=== PATIENT | female | born 1955 | race Caucasian/White ===

== ENCOUNTER 2022-03-01 12:00 | Outpatient (REF) | payer MEDICARE, OTHER, SELFPAY ==
[2022-03-01 13:33] LABS: Hematocrit 40.5 % (37.0-47.0); Hemoglobin 13.2 g/dl (12.0-16.0); Mean Corpuscular HGB Conc 32.6 g/dl (31.0-35.0); Mean Corpuscular Hemoglobin 29.7 pg (27.0-33.0); Mean Platelet Volume 9.1 fL (9.4-12.3); Platelet Count 400 X10*3/uL (160-400); Red Blood Count 4.45 X10*6/uL (4.20-5.50); Red Cell Distribution Width 12.8 % (11.0-16.0); White Blood Count 6.9 X10*3/uL (4.8-10.8)
[2022-03-01 13:54] LABS: Alanine Aminotransferase 22 U/L (0-31); Albumin Level 4.1 g/dL (3.5-5.0); Alkaline Phosphatase 106 U/L (39-117); Anion Gap 10 (12-20); Aspartate Amino Transferase 17 U/L (5-31); Bilirubin Total 0.5 mg/dL (0.0-1.0); Blood Urea Nitrogen 23 mg/dL (9-16); Calcium 9.8 mg/dL (8.4-10.2); Carbon Dioxide 28 mmol/L (22-29); Chloride 107 mmol/L (96-108); Cholesterol 233 mg/dL; Estimated Glomerular Filt Rate 42; Glucose Fasting 101 mg/dL (60-99); HDL Cholesterol 39 mg/dL; LDL Cholesterol Calculated 171 mg/dl; Potassium 4.9 mmol/L (3.3-5.1); Sodium 140 mmol/L (135-145); Total Protein 7.3 g/dL (6.5-8.0); Triglycerides 115 mg/dL
[2022-03-01 14:17] LABS: TSH reflex Free T4 0.57 uIU/mL (0.32-4.0)
== END 2022-03-01 12:01 | disposition home or self-care (01) ==
LOC: HO.WFDLDS 12:00
PROVIDERS: Visit Provider Hospitalist
DX: Z00.00 Encounter for general adult medical examination without abnormal findings (principal); R73.02 Impaired glucose tolerance (oral)
CPT/HCPCS: 36415; 80053; 80061; 84443; 85027

== ENCOUNTER 2022-07-03 12:41 | Outpatient (REF) | payer MEDICARE, OTHER, SELFPAY ==
[2022-07-04 13:32] LABS: Influenza A PCR NEGATIVE (Negative); Influenza B PCR NEGATIVE (Negative); Resp Syncy Virus RNA Qual PCR NEGATIVE (Negative); SARS COV2 PCR INHOUSE NEGATIVE (Negative)
== END 2022-07-03 12:42 | disposition home or self-care (01) ==
LOC: HO.LNP 12:41
PROVIDERS: Visit Provider Nurse Practitioner Family
DX: Z20.822 Contact with and (suspected) exposure to COVID-19 (principal); J06.9 Acute upper respiratory infection, unspecified
CPT/HCPCS: 0241U

== ENCOUNTER 2024-01-23 12:25 | Outpatient (AMB) | payer OTHER, SELFPAY ==
--- NOTE | 2024-01-23 12:27 | A.OFFPC_ITS ---
Vital Signs 01/23/24 12:31 Height 5 ft 4 in Weight 176 lb BMI 30.2 BP 122/76 Blood Pressure Location Rt brachial Position Sitting Respiration 13 Pulse 119 H Pulse Source Pulse Oximeter Temp 99.1 F Temp Source Temporal Artery Scan Pulse Oximetry (%) 96 Oxygen Delivery Method Room Air Intake Visit Reasons: RONDA from Deborah Intake Note: Patient is here for transfer of care from to . Patient reports she is in a lot of pain and would like to discuss this with provider. 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 Accompanied by: Self / Same As Patient Allergies aloe Allergy (Severe, Verified 01/23/24 12:34) Itching pentazocine [From Sandra] Allergy (Intermediate, Verified 01/23/24 12:34) itchy Medication List - Last Reconciled 01/23/24 by Divya Archer, [facility]- amlodipine 10 mg PO DAILY atorvastatin 20 mg PO BEDTIME 30 days levetiracetam 1,000 mg PO BID omeprazole 40 mg PO DAILY Tobacco use date assessed: 01/23/24 Fall risk assessment: 1 Fall in past year Last assessed Fall Risk: 01/23/24 Dental Screening Dental Screen Date: 01/23/24 Did you have a dental visit in the last 12 months?: Yes Did you have a dental problem in the last 6 months where you did not have access to dental care?: No Was dental information given to patient?: Patient has dentist HPI HPI Comments History of Present Illness Details 68-year-old female orthostatic hypotensi on, hyperlipidemia, obesity, GERD, seizure disorder, CKD 3, breast cancer (2013) Status post knee surgery, bilat breast reconstruction & mastectomy, back surgery, bunionectomy, cholecystectomy Health maintenance Tdap 12/13/2022 Mammo - declines DEXA - declines COLON - declines. Eyes - reports exam in the last year Specialist Cardiology - no longer following with. avoid ACEs caused a chronic cough in the past, also avoid beta blockers given low voltage EKG Here today to est care. CC: Pain 30 years ago, L hip pain. Been to many d octors. Pariformis release, no relief. Then had L4-L5 fusion, this helped for a while Then it came back Went to Pain mgmt for 15-20 years. 2020 migraine headaches, several per wee k. Nothing helped it. So she stopped taking all medications (oxycodone, oxycontin and topamax). After coming off, her headaches cont. Reports stopping 06/2020. Had a sz for the first time 09/2020. This was in [place] while visiting family. States she was recommended for medical marijuana. Has tried and has helped very little. Not managed by Neuro at this time; No Sz since this initial one. has never had a sleep study; declines having one done. Feels tired all of the time. States she would not use a device even if she had sleep apnea. Breast cancer - reports she is clear, no need for f/u. I do not have these records. 10 year anniversary this year FOR[facility] Medical History No pertinent past medical history Surgical History History of knee surgery History of reconstruction of both breasts History of mastectomy History of back surgery History of bunionectomy History of cholecystectomy Family History Other Mental health disorder Substance use disorder Social History (Updated 01/23/24 @ 12:39 by Pippa Mooney CMA) Household Members: Children Housing: House 75 years or older and lives alone: No Alcohol intake: current Alcohol intake frequency: holidays/special occasions only Patient Tobacco Use Status: Never used Tobacco e-Cigarette/Vaping Use: Never Used Second Hand Smoke Exposure: No Substance Use Type: Marijuana service: No Current occupational status: disabled Current occupational exposures/hazards: No Sexual orientation: Unable to collect Gender identity: Unable to collect Cognitive needs: No Hearing needs: No Vision needs: Yes (glasses) Questionnaire PHQ-9 Over the last 2 weeks, how often have you been bothered by any of the following problems? 1. Little interest or pleasure in doing things: not at all 2. Feeling down, depressed, or hopeless: not at all 3. Trouble falling or staying asleep, or sleeping too much: nearly every day 4. Feeling tired or having little energy: nearly every day 5. Poor appetite or overeating: not at all 6. Feeling bad about yourself - or that you are a failure or have let yourself or your family down: not at all 7. Trouble concentrating on things, such as reading the newspaper or watching television: several days 8. Moving or speaking so slowly that other people could have noticed. Or the opposite - being so fidgety or restless that you have been moving around a lot more than usual: not at all 9. Thoughts that you would be better off or of hurting yourself in some way: not at all Total score: 7 Depression Screening Interpretation: Positive Depression Screening Follow-up: Declines treatment Depression Screening Done: Yes 22526 - PHQ-9 Billing: Yes Source: Developed by Drs. Manny Vargas, Erika Cook, Morro Shipley and colleagues, with an educational rose from [employer]. Thrive Questionnaire Date Thrive assessed: 01/23/24 I am a: Patient What is your living situation today?: I have a steady place to live Within the past 12 months, did the food you bought not last and you didn't have the money to get more?: Never true Within the past 12 months, did you worry whether your food would run out before you got money to buy more?: Never true Do you have trouble paying for medicines?: No Do you have trouble getting transportation to medical appointments?: No Do you have trouble paying your heating and electricity bill?: No Do you have trouble taking care of your child, family member or friend?: No Do you have trouble with day-to-day activities such as bathing, preparing meals, shopping, managing finances, etc.?: No Are you currently unemployed and looking for a job?: No Are you interested in more education?: No Please select the resources that you would like help with: None Currently or been in a relationship where the following occur: no concerns reported THRIVE Score: 0 AUDIT C Alcohol Use Questionnaire (AUDIT-C) 1. How often do you have a drink containing alcohol?: Monthly or less 2. How many drinks containing alcohol do you have on a typical day when you are drinking?: 1 or 2 3. How often do you have six or more drinks on one occasion?: Never Total Score: 1 SCOTT-7 AMB Questionnaire SCOTT-7 Date SCOTT - 7 assessed: 01/23/24 Feeling nervous, anxious, or on edge: 0 = Not at all Not being able to stop or control worryin = Not at all Worrying too much about different things: 0 = Not at all Trouble relaxin = More than half the days Being so restless that it is hard to sit still: 0 = Not at all Becoming easily annoyed or irritable: 0 = Not at all Feeling afraid as if something awful might happen: 0 = Not at all Total SCOTT-7 score (0-4 normal; 5-9 mild; 10-14 moderate; 15-21 severe): 2 Source: Developed by Drs. Manny Vargas, Erika Cook, Morro Shipley and colleagues, with an educational rose from [employer]. SCOTT-7 Assessment Billing SCOTT-7 Assessment Tool: SCOTT-7 Assessment 03220 Review of Systems Const All systems reviewed & are unremarkable except as noted in HPI and below Physical exam (Primary Care) Vital Signs: Last Vital Signs Temp 99.1 F 01/23/24 12:31 Pulse 119 H 01/23/24 12:31 Resp 13 01/23/24 12:31 BP 122/76 01/23/24 12:31 Pulse Ox 96 01/23/24 12:31 Oxygen Delivery Method Room Air 01/23/24 12:31 BMI result Body Mass Index 30.2 Tobacco/Smoking Status: Tobacco use Status Tobacco use date assessed 01/23/24 01/23/24 12:41 Patient Tobacco Use Status Never used Tobacco 01/23/24 12:41 e-Cigarette/Vaping Use Never Used 01/23/24 12:41 PHQ-9: PHQ-9 Score PHQ-9: Total score 7 01/23/24 12:41 Depression Screening Interpretation: Positive Depression Screening Follow-up: Declines treatment Thrive Assessment: Date of Thrive Assessment Date Thrive assessed 01/23/24 01/23/24 12:41 Currently or been in a relationship where the following occur: no concerns reported Advance Care Planning discussion: Exists, not on file (has a signed dnr molst at home; blank hcp given today.) Date of discussion: 01/23/24 Who was present: self Forms completed: Health Care Proxy Time spent: 1-15 minutes, not on file Const Other: awake alert oriented MMM Tachycardic, regular rythym LS CTAB NO edema BLE Neuro exam WNL Assessment and Plan Assessment & Plan (1) Chronic pain: Comment: Affecting bilat hips and legs. Was active with pain management in [place] in the past. Was prescribed oxycodone and OxyContin. She has been off these since 2020. She underwent spinal surgery for L4-L5 several years ago with short-lived relief. The plan at this time will be to refer to [facility] is pain management for further evaluation and treatment. Aware they do not prescribe medications. Code(s): G89.29 - Other chronic pain Qualifiers: Chronic pain type: other chronic pain Qualified Code(s): G89.29 - Other chronic pain (2) HTN (hypertension): Comment: Blood pressure at goal less than 130/80 on amlodipine 10 mg p.o. daily. avoid ACEs caused a chronic cough in the past, also avoid beta blockers given low voltage EKG noted at [facility] during hospital admission. She is tachycardic today. She denies any symptoms. Admits some anxiety with a new visit. Advised her to monitor her blood pressure and pulse daily. If pulse remains above 100 and or she develops symptoms advised that she follow up immediately. Otherwise I have asked that she send me her blood pressure and pulse log in 1 week via the portal. Code(s): I10 - Essential (primary) hypertension Qualifiers: Hypertension type: primary hypertension Qualified Code(s): I10 - Essential (primary) hypertension (3) Seizure disorder: Comment: One seizure in 2020 after stopping narcotics. Maintained on Keppra. Not currently managed by Neurology. No interest in following up with Neurology at this time. If she is willing in the future I would recommend a referral to Neurology to see if we can get her off of this Keppra or to see if she really needs this medication. Code(s): G40.909 - Epilepsy, unspecified, not intractable, without status epilepticus (4) Chronic GERD: Comment: Maintained on omeprazole. Code(s): K21.9 - Gastro-esophageal reflux disease without esophagitis (5) High cholesterol: Comment: Maintained on atorvastatin 20 mg daily. Updated lab orders placed today. Code(s): E78.00 - Pure hypercholesterolemia, unspecified (6) Migraine aura without headache: Comment: Using Excedrin migraine with positive relief. Declines referral to neurology, any abortive medications and sleep study at this time. Code(s): G43.109 - Migraine with aura, not intractable, without status migrainosus (7) Breast cancer: Comment: I do not have any records. Patient reports that this was diagnosed in 2013. She underwent a bilateral mastectomy. Reports that she was cleared from any additional follow up. Code(s): C50.919 - Malignant neoplasm of unspecified site of unspecified female breast Qualifiers: Breast location: unspecified site of breast Estrogen receptor status: unspecified Patient sex: female Laterality: unspecified laterality Qualified Code(s): C50.919 - Malignant neoplasm of unspecified site of unspecified female breast Plan This note is constructed using voice recognition software. While every effort has been made to ensure accuracy in manager people, still errors may have been included Sometimes, these errors may affect the content or meaning of the given sentence . Total time spent caring for the patient today was 50 minutes. This includes time spent before the visit reviewing the chart, time spent during the visit, and time spent after the visit on documentation Orders: Orders Lipid Panel Today E78.00 - Pure hypercholesterolemia, unspecified, G40.909 - Epilepsy, unspecified, not intractable, without status epilepticus, I10 - Essential (primary) hypertension, K21.9 - Gastro-esophageal reflux disease without esophagitis Comprehensive [place]. Panel Fast Today E78.00 - Pure hypercholesterolemia, unspecified, G40.909 - Epilepsy, unspecified, not intractable, without status epilepticus, I10 - Essential (primary) hypertension, K21.9 - Gastro-esophageal reflux disease without esophagitis TSH reflex Free T4 Today E78.00 - Pure hypercholesterolemia, unspecified, G40.909 - Epilepsy, unspecified, not intractable, without status epilepticus, I10 - Essential (primary) hypertension, K21.9 - Gastro-esophageal reflux disease without esophagitis Vitamin D 1,25 dihydroxy Today E78.00 - Pure hypercholesterolemia, unspecified, G40.909 - Epilepsy, unspecified, not intractable, without status epilepticus, I10 - Essential (primary) hypertension, K21.9 - Gastro-esophageal reflux disease without esophagitis IRON PROFILE Today G43.109 - Migraine with aura, not intractable, without sta tus migrainosus Complete Blood Count no Diff Today G43.109 - Migraine with aura, not intractable, without status migrainosus Microalbumin, Random (w Creat) Today E78.00 - Pure hypercholesterolemia, unspecified, G40.909 - Epilepsy, unspecified, not intractable, without status epilepticus, I10 - Essential (primary) hypertension, K21.9 - Gastro-esophageal reflux disease without esophagitis Vitamin B12 Today G43.109 - Migraine with aura, not intractable, without status migrainosus Referrals 2 Pain Management Referral G89.29 - Other chronic pain Medications: Discontinued amlodipine Discontinued Reason: Duplicate 5 mg PO DAILY Patient Instructions: Return to office in 2 months to follow-up on chronic conditions. Sooner if needed. Please send me blood pressure and pulse log in 1 week. Review Patient declined Mammogram: 01/23/24 Declined Pap Smear: 01/23/24 Patient declined Colonoscopy: 01/23/24 Patient declined Colon Cancer Screen Lab: 01/23/24 Patient declined Pneumococcal Vaccine: 01/23/24 Flu Vaccine not done: patient reason Declined TDap/Td: 01/23/24 Coding Level of Care Code Est Pt Level 5 (11282) Diagnoses Other chronic pain G89.29 Chronic pain type: other chronic pain Primary hypertension I10 Hypertension type: primary hypertension Seizure disorder G40.909 Chronic GERD K21.9 High cholesterol E78.00 Migraine aura without headache G43.109 Malignant neoplasm of female breast, unspecified estrogen receptor status, unspecified laterality, unspecified site of breast C50.919 Breast location: unspecified site of breast Estrogen receptor status: unspecified Patient sex: female Laterality: unspecified laterality Additional Codes SCOTT-7 Assessment Billing - SCOTT-7 Assessment Tool: SCOTT-7 Assessment 27893 ([id number]) Vital Signs *Quality* - Time spent: 1-15 minutes, not on file ([id number]) Vital Signs *Quality* - Advance Care Planning discussion: Exists, not on file ([id number])
[2024-01-23 12:31] VITALS: BP 122/76; PULSE 119; RESP 13; TEMP 37.3; O2SAT 96; BMI 30.2
== END 2024-01-23 13:14 | disposition home or self-care (01) ==
PROVIDERS: PCP Hospitalist; Visit Provider Nurse Practitioner Family
DX: G89.29 Other chronic pain (principal); I10 Essential (primary) hypertension; G40.909 Epilepsy, unspecified, not intractable, without status epilepticus; C50.919 Malignant neoplasm of unspecified site of unspecified female breast; K21.9 Gastro-esophageal reflux disease without esophagitis; E78.00 Pure hypercholesterolemia, unspecified; G43.109 Migraine with aura, not intractable, without status migrainosus; Z00.00 Encounter for general adult medical examination without abnormal findings
CPT/HCPCS: 1124F; 99215

== ENCOUNTER 2024-03-03 10:51 | Outpatient (AMB) | payer BC, SELFPAY ==
[2024-03-03 11:01] VITALS: BP 136/63; PULSE 99; RESP 14; O2SAT 98; BMI 29.9
--- NOTE | 2024-03-03 11:01 | MHC.OFFVIS ---
Vital Signs 03/03/24 11:01 Height 5 ft 4 in Weight 174 lb BMI 29.9 BP 136/63 Blood Pressure Location Lt brachial Position Sitting Respiration 14 Pulse 99 Pulse Source Pulse Oximeter Pulse Oximetry (%) 98 Oxygen Delivery Method Room Air Intake Visit Reasons: Other chronic pain Allergies aloe Allergy (Severe, Verified 03/03/24 11:02) Itching pentazocine [From Talwin] Allergy (Intermediate, Verified 03/03/24 11:02) itchy Medication List - Last Reconciled 03/03/24 by Dahlia Duron LPN amlodipine 10 mg PO DAILY atorvastatin 20 mg PO BEDTIME 30 days levetiracetam 1,000 mg PO BID omeprazole 40 mg PO DAILY HPI HPI Other chronic pain: Details: 68-year-old female who presents today to the office for a chronic pain. She is presenting with a more than 20-year history of pain in the left buttock as well as in the lower back radiating into the left thigh. She had a performance muscle released 20 years ago for left buttock pain, which never helped her, and she has continued with that pain ever since.?Subsequently, she also underwent L4-5 laminectomy fusion, which also did not really clear the relief. She has undergone multiple types of injections in the past at [facility] without any relief. Eventually, she was placed on pain medications, including oxycontin and oxycodone, that seemed to provide some relief. Since moving here, she has not been on those medications and has been managing her pain using [id number] modalities. Today, her pain is described as an 8/10 aching pain in the lower back that radiates to the left buttock. She is unable to go to sleep normally or do her daily activities. The pain is rated as 9/10 with activity in the morning; it tends to be a little bit better, about 2/10 in intensity. Movements make it worse. She was diagnosed with a seizure disorder two years ago, and she is currently on Keppra 1000 milligrams twice daily. Surgical history is also notable for bilateral mastectomy with reconstruction as well as left TKR. She does not recall when her last MRI was done, and she has not been for physical therapy in the recent past. Previously, PT made her pain worse. She recalls undergoing a SIJ injection at 1 point, though she was unsure what was done and when. She has not tried SIJ compression belts in the past. [facility] Medical History No pertinent past medical history Surgical History History of knee surgery History of reconstruction of both breasts History of mastectomy History of back surgery History of bunionectomy History of cholecystectomy Family History Other Mental health disorder Substance use disorder Social History (Updated 01/23/24 @ 12:39 by Pippa Mooney CMA) Household Members: Children Housing: House 75 years or older and lives alone: No Alcohol intake: current Alcohol intake frequency: holidays/special occasions only Patient Tobacco Use Status: Never used Tobacco e-Cigarette/Vaping Use: Never Used Second Hand Smoke Exposure: No Substance Use Type: Marijuana service: No Current occupational status: disabled Current occupational exposures/hazards: No Sexual orientation: Unable to collect Gender identity: Unable to collect Cognitive needs: No Hearing needs: No Vision needs: Yes (glasses) Review of Systems Const All systems reviewed & are unremarkable except as noted in HPI and below Physical Exam Vital Signs: Last Vital Signs Pulse 99 03/03/24 11:01 Resp 14 03/03/24 11:01 BP 136/63 03/03/24 11:01 Pulse Ox 98 03/03/24 11:01 Oxygen Delivery Method Room Air 03/03/24 11:01 BMI result Body Mass Index 29.9 General: Appears afebrile. Alert and oriented. Mood and affect appropriate. Follows and participates in conversation appropriately. Respiratory effort is unlabored. Able to transition from sit to stand unassisted. Ambulates with bilaterally normal heel strike and toe off. Her right SI joint provocation, including compression, thigh thrust, and kamaljit is positive. There is tenderness overlying the left side joint. Pain is localized in the left buttock area, overlying the SIJ up towards the lower back. Results Reviewed Results Reviewed: No imaging is available for review. 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 She did not get better with that operation and then subsequently underwent multiple trials with different treatments, none of which were successful. History is also notable for a lumbar fusion surgery. She was eventually placed on long-term opioid therapy. She has now been off of her opioids for 2 years. Based on history and physical exam today, at this time, differential diagnosis includes post-laminectomy syndrome, cluneal neuropathy, sacroiliac joint dysfunction and hip osteoarthritis due to gait instability following left piriformis muscle release. Start with, I will schedule her for a left-diagnostic sacroiliac joint injection. We will potentially follow this up with sacroiliac joint innervation block/cluneal nerve block to assess candidacy for cluneal nerve stimulator leads. Discussed the risks and benefits of the procedure with the patient in detail. All questions were answered. The patient is on board with the plan. In meantime I ordered xray of the bilateral hips and pelvis region for further evaluation. If that is not helpful, we can consider diagnostic nerve block of the posterior ramis of the S1, S2, and S3 in anticipation of PNS trials for medial cluneal neuropathy. Justification for interventional therapy: ? Patient with average pain > 6/10 ? Patient has exhausted conservative therapy ? Patient unable to tolerate physical therapy due to pain. . Patient has a good understanding of their pain condition and has appropriate mental and social support Orders: Orders XR hip BI w PEL1V 03/03/24 M25.551 - Pain in right hip, M25.552 - Pain in left hip Scribe Plan - Not visible on output: Scribed for Dr. Gorman by Danyel Moeller, medical delivery technician, on 03/03/2024. I, Dr. Gorman, have personally reviewed and agree with the information entered by the scribe. Coding Level of Care Code New Pt Level 4 (03573) Diagnoses Bilateral hip pain M25.551; M25.552 Cluneal neuropathy G58.8 Sacroiliac joint dysfunction M53.3 Post laminectomy syndrome M96.1
== END 2024-03-03 11:28 | disposition home or self-care (01) ==
PROVIDERS: PCP Nurse Practitioner Family; Referring Provider Nurse Practitioner Family; Visit Provider Internal Medicine
DX: M25.551 Pain in right hip (principal); M25.552 Pain in left hip; G58.8 Other specified mononeuropathies; M53.3 Sacrococcygeal disorders, not elsewhere classified; M96.1 Postlaminectomy syndrome, not elsewhere classified
CPT/HCPCS: 99204

== ENCOUNTER → 2024-03-03 10:51 | Outpatient (BNVA) | payer OTHER, SELFPAY | PROVIDERS: PCP Nurse Practitioner Family; Referring Provider Nurse Practitioner Family; Visit Provider Internal Medicine ==

== ENCOUNTER 2024-04-03 10:59 | Outpatient (REF) | payer BC, SELFPAY ==
[2024-04-03 15:05] LABS: Hematocrit 43.8 % (37.0-47.0); Hemoglobin 14.6 g/dl (12.0-16.0); Mean Corpuscular HGB Conc 33.3 g/dl (31.0-35.0); Mean Corpuscular Volume 89.9 fL (80.0-98.0); Mean Platelet Volume 9.4 fL (9.4-12.3); Platelet Count 391 X10*3/uL (160-400); Red Blood Count 4.87 X10*6/uL (4.20-5.50); Red Cell Distribution Width 12.9 % (11.0-16.0); White Blood Count 7.8 X10*3/uL (4.8-10.8)
[2024-04-03 15:33] LABS: Creatinine Urine 128.51 mg/dL
[2024-04-03 15:41] LABS: Alanine Aminotransferase 8 U/L (0-31); Albumin Level 3.8 g/dL (3.5-5.0); Alkaline Phosphatase 83 U/L (39-117); Anion Gap 13 (12-20); Aspartate Amino Transferase 16 U/L (5-31); Bilirubin Total 0.5 mg/dL (0.0-1.0); Blood Urea Nitrogen 13 mg/dL (9-16); Calcium 9.5 mg/dL (8.4-10.2); Carbon Dioxide 29 mmol/L (22-29); Chloride 106 mmol/L (96-108); Cholesterol 174 mg/dL (<200); Estimated Glomerular Filt Rate 54; Glucose Fasting 103 mg/dL (60-99); HDL Cholesterol 46 mg/dL (>40); Iron 86 mcg/dL (30-160); LDL Cholesterol Calculated 111 mg/dL (<100); Percent Iron Saturation 40 % (15-50); Potassium 3.1 mmol/L (3.3-5.1); Sodium 145 mmol/L (135-145); Total Iron Binding Capacity 214 mcg/dL (228-428); Total Protein 7.3 g/dL (6.5-8.0); Triglycerides 86 mg/dL (<150); Unsaturated Iron Binding 128 ug/dL
[2024-04-03 15:49] LABS: TSH reflex Free T4 0.81 uIU/mL (0.32-4.0); Vitamin B12 301 pg/mL (200-900)
[2024-04-08 03:13] LABS: VITAMIN D (1,25 OH) D3 56 pg/mL; Vit D (1,25-Dihydroxy) Total 56 pg/mL (18-72); Vitamin D (1,25 OH) D2 <8 pg/mL
== END 2024-04-03 11:00 | disposition home or self-care (01) ==
LOC: HO.WFDLDS 10:59
PROVIDERS: Visit Provider Nurse Practitioner Family
DX: K21.9 Gastro-esophageal reflux disease without esophagitis (principal); I10 Essential (primary) hypertension; G40.909 Epilepsy, unspecified, not intractable, without status epilepticus; E78.00 Pure hypercholesterolemia, unspecified; G43.109 Migraine with aura, not intractable, without status migrainosus; G43.909 Migraine, unspecified, not intractable, without status migrainosus
CPT/HCPCS: 36415; 80053; 80061; 82043; 82570; 82607; 82652; 83540; 84443; 85027

== ENCOUNTER 2024-04-10 06:11 | Outpatient (REF) | payer BC, SELFPAY ==
--- NOTE | ~2024-04-10 | FL_ITS ---
EXAMINATION: XR FLUOROSCOPY WITH IMAGES CLINICAL INFORMATION: Sacrococcygeal disorder. COMPARISON: None available. TECHNIQUE: Fluoroscopy Supervised By: Dr. Sincere Gorman. Fluoroscopy Time: 0.1 minutes. Cumulative Dose: 2.04 mGy. DAP: 0.201 Gycm2. Images: 2. FINDINGS: Intraoperative fluoroscopy and spot films were performed during a procedure in the OR. A needle is seen overlying the mid left SI joint. Partial visualization of lumbosacral fixation hardware. Please correlate with Dr. Sincere Gorman's report for complete details. FL/FL guidance in treatment room IMPRESSION: Intraoperative fluoroscopy and spot films were obtained. Please see Dr. Sincere Gorman's report for complete details.
== END 2024-04-10 06:12 | disposition home or self-care (01) ==
LOC: CF 06:11
PROVIDERS: Visit Provider Internal Medicine
DX: M53.3 Sacrococcygeal disorders, not elsewhere classified (principal)
CPT/HCPCS: 27096; J2795

== ENCOUNTER 2024-04-10 10:18 | Outpatient (AMB) | payer BC, SELFPAY ==
--- NOTE | 2024-04-10 10:45 | A.OFFVIS_ITS ---
Vital Signs 04/10/24 10:57 04/10/24 10:57 BP 128/85 124/84 Blood Pressure Location Lt brachial Lt brachial Position Sitting Sitting Respiration 14 14 Pulse 90 99 Pulse Source Pulse Oximeter Pulse Oximeter Pulse Oximetry (%) 98 100 Oxygen Delivery Method Room Air Room Air Intake Visit Reasons: Left Dx SIJ inj Allergies aloe Allergy (Severe, Verified 03/03/24 11:02) Itching pentazocine [From Talwin] Allergy (Intermediate, Verified 03/03/24 11:02) itchy HPI HPI Left Dx SIJ inj: Details: Patient presents for scheduled procedure. Denies any recent cough, cold, infection, fever or other significant changes in medical history since last office visit. FORMERLY [facility] Medical History No pertinent past medical history Surgical History History of knee surgery History of reconstruction of both breasts History of mastectomy History of back surgery History of bunionectomy History of cholecystectomy Family History Other Mental health disorder Substance use disorder Social History (Updated 01/23/24 @ 12:39 by Pippa Mooney CMA) Household Members: Children Housing: House 75 years or older and lives alone: No Alcohol intake: current Alcohol intake frequency: holidays/special occasions only Patient Tobacco Use Status: Never used Tobacco e-Cigarette/Vaping Use: Never Used Second Hand Smoke Exposure: No Substance Use Type: Marijuana service: No Current occupational status: disabled Current occupational exposures/hazards: No Sexual orientation: Unable to collect Gender identity: Unable to collect Cognitive needs: No Hearing needs: No Vision needs: Yes (glasses) Physical Exam Vital Signs: Last Vital Signs Pulse 99 04/10/24 10:57 Resp 14 04/10/24 10:57 BP 124/84 04/10/24 10:57 Pulse Ox 100 04/10/24 10:57 Oxygen Delivery Method Room Air 04/10/24 10:57 Office Procedures Joint Injection/Drain Joint Injection/Drain Details: Sacroiliac Joint Injection, Left The procedure, its benefits, and its risks were explained and written informed consent was obtained from the patient. Immediately prior to starting the procedure, a time-out safety check was conducted. The patient's identification, procedure name, procedure site, and procedure laterality were confirmed with the patient. ? Patient was placed prone on the fluoroscopy table and the lumbosacral area was prepped using ChloraPrep and draped with sterile drapein standard fashion. The C-arm was rotated in a contralateral oblique fashion until the medial border of the iliac crest no longer foreshadowed the posterior sacroiliac joint line. The skin and subcutaneous tissue was anesthetized using 1 mL of 0.75% plain lidocaine with 1.5-inch 25-gauge needle in the middle region of the joint line.? A 3.5-inch 22-gauge spinal needle with small bend on the tip was slowly advanced towards the joint line, coaxial to the x-ray beam. Once bony content was obtained, the needle was easily slid into the intra-articular space.? Intra- articular needle position was confirmed using lateral fluoroscopy.? A total volume of 2.5mL of solution containing 0.5% of ropivacaine was injected intra- articularly. The stylet was reinserted and needle was removed. The patient tolerated the procedure well. Patient denied any lower extremity weakness or numbness. Patient was observed for 30 min and was discharged after fulfilling the standard discharge criteria. Coding 26843 - Sacroiliac Procedure code (CPT) selection complete Assessment & Plan Assessment & Plan (1) Sacroiliac joint dysfunction: Code(s): M53.3 - Sacrococcygeal disorders, not elsewhere classified Category: Medical Plan Patient is status post diagnostic left sacroiliac joint injection. Patient tolerated procedure well and was discharged home in stable condition with discharge instructions. All questions were answered. We will follow-up via telephone or in clinic to assess response to therapy. A follow-up appointment was made during today's visit. Coding Level of Care Code Procedure Only Diagnoses Sacroiliac joint dysfunction M53.3 CPT Codes Coding - Joint 9: 29929 - Sacroiliac ([id number])
[2024-04-10 10:57] VITALS: BP 124/84; BP 128/85; PULSE 90; PULSE 99; RESP 14; O2SAT 100; O2SAT 98
== END 2024-04-10 11:05 | disposition home or self-care (01) ==
LOC: HO.PMCPRC 10:18
PROVIDERS: PCP Nurse Practitioner Family; Visit Provider Internal Medicine
DX: M53.3 Sacrococcygeal disorders, not elsewhere classified (principal)
CPT/HCPCS: 27096

== ENCOUNTER 2024-04-16 10:21 | Outpatient (AMB) | payer BC, SELFPAY ==
--- NOTE | 2024-04-16 10:38 | A.OFFVIS_ITS ---
Vital Signs 04/16/24 10:39 Height 5 ft 4 in Weight 174 lb BMI 29.9 BP 119/65 Blood Pressure Location Lt brachial Position Sitting Respiration 14 Pulse 95 Pulse Source Pulse Oximeter Pulse Oximetry (%) 98 Oxygen Delivery Method Room Air Intake Visit Reasons: s/p left Dx SIJ inj Allergies aloe Allergy (Severe, Verified 04/16/24 10:40) Itching pentazocine [From Talwin] Allergy (Intermediate, Verified 04/16/24 10:40) itchy Medication List - Last Reconciled 04/16/24 by Dahlia Duron LPN amlodipine 10 mg PO DAILY atorvastatin 20 mg PO BEDTIME 30 days levetiracetam 1,000 mg PO BID omeprazole 40 mg PO DAILY HPI HPI s/p left Dx SIJ inj: Details: 68-year-old female who presents to the office for status post left diagnostic sacroiliac joint injection The patient reports 70% relief following the procedure. Past procedure: 04/10/24: Left diagnostic sacroiliac joint injection: 70% relief PFS Medical History No pertinent past medical history Surgical History History of knee surgery History of reconstruction of both breasts History of mastectomy History of back surgery History of bunionectomy History of cholecystectomy Family History Other Mental health disorder Substance use disorder Social History (Updated 01/23/24 @ 12:39 by Pippa Mooney CMA) Household Members: Children Housing: House 75 years or older and lives alone: No Alcohol intake: current Alcohol intake frequency: holidays/special occasions only Patient Tobacco Use Status: Never used Tobacco e-Cigarette/Vaping Use: Never Used Second Hand Smoke Exposure: No Substance Use Type: Marijuana service: No Current occupational status: disabled Current occupational exposures/hazards: No Sexual orientation: Unable to collect Gender identity: Unable to collect Cognitive needs: No Hearing needs: No Vision needs: Yes (glasses) Review of Systems Const All systems reviewed & are unremarkable except as noted in HPI and below Physical Exam Vital Signs: Last Vital Signs Pulse 95 04/16/24 10:39 Resp 14 04/16/24 10:39 BP 119/65 04/16/24 10:39 Pulse Ox 98 04/16/24 10:39 Oxygen Delivery Method Room Air 04/16/24 10:39 BMI result Body Mass Index 29.9 General: Appears afebrile. Alert and oriented. Mood and affect appropriate. Follows and participates in conversation appropriately. Respiratory effort is unlabored. Able to transition from sit to stand unassisted. Results Reviewed Results Reviewed: No imaging is available for review Assessment & Plan Assessment & Plan (1) Sacroiliac joint dysfunction: Code(s): M53.3 - Sacrococcygeal disorders, not elsewhere classified Category: Medical Plan We will schedule for a left therapeutic sacroiliac joint injection under flouroscopy. Discussed the risks and benefits of the procedure with the patient in detail. All questions were answered. The patient is on board with the plan. Scribed for Dr. Gorman by Kristan German, medical information officer, on 04/16/2024. I, Dr. Gorman, have personally reviewed and agree with the information entered by the scribe. Coding Level of Care Code Est Pt Level 2 (00907) Diagnoses Sacroiliac joint dysfunction M53.3
[2024-04-16 10:39] VITALS: BP 119/65; PULSE 95; RESP 14; O2SAT 98; BMI 29.9
== END 2024-04-16 11:00 | disposition home or self-care (01) ==
PROVIDERS: PCP Nurse Practitioner Family; Visit Provider Internal Medicine
DX: M53.3 Sacrococcygeal disorders, not elsewhere classified (principal)
CPT/HCPCS: 99214

== ENCOUNTER → 2024-04-16 10:21 | Outpatient (BNVA) | payer BC, SELFPAY | PROVIDERS: PCP Nurse Practitioner Family; Visit Provider Internal Medicine ==

== ENCOUNTER 2024-10-13 10:26 | Outpatient (AMB) | payer BC, SELFPAY ==
--- OUTSIDE RECORDS SUMMARY | 2024-10-13 10:31 | XMS_ITS ---
Author Name [facility] Organization Unknown Results Test Name/Text Value Interpretation Date Range Source Trigl SerPl-mCnc 178mg/dL Above high normal [id number] - 150 [facility] HDLc SerPl-mCnc 45mg/dL Normal [id number] 40 - 60 [facility] LDLc SerPl Direct Assay-mCnc 92mg/dL Normal [id number] 65 - 129 [facility] Cholest SerPl-mCnc 173mg/dL Normal [id number] - 200 [facility] NonHDLc SerPl-mCnc 128mg/dL Normal [id number] [facility] AST SerPl-cCnc 22U/L Normal [id number] 15 - 37 [facility] Creat SerPl-mCnc 1.34mg/dL Above high normal [id number] 0. 51 - 0.95 [facility] Globulin Ser Calc-mCnc 4.2g/dL Above high normal [id number] 1.9 - 3.7 [facility] H CO2 SerPl-sCnc 30mmol/L Normal [id number] 21 - 32 [facility] eGFRcr SerPlBld CKD-EPI 2020 43mL/min/1.73 m2 Below low normal [id number] - [facility] Potassium SerPl-sCnc 3.5mmol/L Normal [id number] 3.5 - 5.1 [facility] Bilirub SerPl-mCnc 0.35mg/dL Normal [id number] 0.2 - 1 [facility] Calcium SerPl-mCnc 8.7mg/dL Normal [id number] 8.5 - 10.1 [facility] BUN SerPl-mCnc 19mg/dL Above high normal [id number] 7 - 18 [facility] ALP SerPl-cCnc 91U/L Normal [id number] 42 - 161 [facility] Chloride SerPl-sCnc 105mmol/L Normal [id number] 98 - 107 [facility] Albumin SerPl-mCnc 3.5g/dL Normal [id number] 3.4 - 5 [facility] Prot SerPl-mCnc 7.7g/dL Normal [id number] 6.4 - 8.2 [facility] ALT SerPl w P-5'-P-cCnc 22U/L Normal [id number] 13 - 61 [facility] Sodium SerPl-sCnc 140mmol/L Normal [id number] 136 - 145 [facility] Anion Gap SerPl-sCnc 5mmol/L Normal [id number] 5 - 14 [facility] Glucose SerPl-mCnc 107mg/dL Above high normal [id number] 70 - 100 [facility] H RDW RBC Auto-Rto 12.6% Below low normal [id number] 13 - 18.5 [facility] PMV Bld Auto 7.3fL Below low normal [id number] 8.7 - 1 1.8 [facility] MCH RBC Qn Auto 30.8pg Normal [id number] 25.4 - 34.6 [facility] RBC # Bld Auto 4.4x10E6/uL Normal [id number] 3.8 - 5 [facility] MCHC RBC Auto-mCnc 33.6g/dL Normal [id number] 31 - 37 [facility] Platelet # Bld Auto 156c27R1/uL Above high normal [id number] 150 - 375 [facility] H WBC # Bld Auto 9.4x10E3/uL Normal [id number] 4 - 12 [facility] Hct VFr Bld Auto 40.4% Normal [id number] 36 - 46 [facility] MCV RBC Auto 92fL Normal [id number] 80 - 100 [facility] Hgb Bld-mCnc 13.6g/dL Normal [id number] 12 - 16 [facility]
--- NOTE | 2024-10-13 10:33 | MHC.PC.OV ---
Vital Signs 10/13/24 10:37 Height 5 ft 4 in Weight 163 lb BMI 28.0 BP 113/66 Blood Pressure Location Rt brachial Respiration 12 Pulse 91 Pulse Source Pulse Oximeter Pulse Oximetry (%) 95 Oxygen Delivery Method Room Air Intake Visit Reasons: discharged on 10/05 from [facility] Intake Note: Discharged follow up from [facility] Advertising Sales Associate Required: No Allergies aloe Allergy (Severe, Verified 10/13/24 10:34) Itching pentazocine [From Talwin] Allergy (Intermediate, Verified 10/13/24 10:34) itchy Medication List - Last Reconciled 10/13/24 by Divya Archer, TRAVELING PLANT OPERATOR-BC acetaminophen mg PO atorvastatin 40 mg PO BEDTIME levetiracetam 1,000 mg PO BID omeprazole 40 mg PO DAILY oxycodone 5 mg PO QID PRN Tobacco use date assessed: 01/23/24 Dental Screening Dental Screen Date: 01/23/24 HPI HPI Comments History of Present Illness Details 68-year-old female orthostatic hypotension, hyperlipidemia, obesity, GERD, seizure disorder, CKD 3, breast cancer (2013) Status post knee surgery, bilat breast reconstruction & mastectomy, back surgery, bunionectomy, cholecystectomy Health maintenance Tdap 12/13/2022 Mammo - declines DEXA - declines COLON - declines. Eyes - reports exam in the last year Specialist Cardiology - no longer following with. avoid ACEs caused a chronic cough in the past, also avoid beta blockers given low voltage EKG Here today for a Transitional Care Management Visit Discharge summary is not available. Requested multiple times. Info is provided from Rita, family friend, who has access to the portal at [facility] for details of [facility] visit. Admission Date: 09/28/24 Discharge Date: 10/05/24 Hospital: [facility] Date of interactive contact with Nurse Navigator: as documented in chart Pending diagnostic tests/treatments: none Pending consults: n/a DME: [facility] PT/OT/SOFA BACK UPHOLSTERER: no referral made, would benefit from [facility] SN and PT Medications reconciled & updated. During [facility] TCM visit, the d/c summary was reviewed, along with the need for or follow-up on pending diagnostic tests and treatments, as necessary interaction with other health transitional care nurse who will assume or reassume care of the beneficiary?s system-specific problems was done or is being worked on, education was provided to the beneficiary, family, guardian, and/or caregiver, referrals to establish or re-establish and arrange needed community resources we completed, assistance in scheduling required follow-up with community providers and services & finally updated medication list given to patient/caregiver Rita [phone] Contact for appts/scheduling if Fartun does not answer History of Present Illness The patient is a 68-year-old female presenting with transitional care management following 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 The patient was admitted to the hospital on September 28, following an episode where she was found disoriented, incontinent, and had fainted in the bathroom. The patient had been experiencing severe migraines for three to four-day intervals, with significant fatigue over the last month and a half. Upon hospital evaluation, a CT scan revealed the presence of a brain tumor, and a subsequent MRI confirmed a left temporal mass, for which a biopsy was conducted. The patient reported no seizure activity, remains on seizure medication. The tumor, initially suspected to be two masses but later identified as one with a tail, has led to cognitive fluctuations. She is awaiting oncology follow-up for biopsy results. Appt tomorrow. The patient was previously prescribed amlodipine for hypertension, acetaminophen for migraines, a cholesterol medication, and an acid reflux medication. There was a noted inconsistency in medication adherence due to migraines - was not taking her norvasc. During hospitalization, pain management included oxycodone following trials of various analgesics including Firoset, morphine, and Dilaudid. The patient reports improvement but fluctuating cognitive states remain. Review of Systems - Neurological: Reports recurrent severe headaches, episodes of disorientation. Denies seizures. - Gastrointestinal: Denies new bowel incontinence post-hospitalization. Physical Exam Awake alert NAD, accompanied by Rita - Neurological- Cranial nerves II through XII intact; muscle strength 5/5 in ext except 4/5 RLE. 6 CIT WNL. - Musculoskeletal- Ambulation with assistance/walker which is new from her previous baseline . - Respiratory- Lungs clear to auscultation bilaterally. - Cardiovascular- Heart rate and rhythm regular. Results - Imaging: MRI revealed high-grade left temporal brain tumor. - Biopsy: Completed, awaiting results. Plan - Continue current pain management regimen with oxycodone and acetaminophen. - Referral to [facility]'s visiting nurse and physical therapy services. - Follow-up with oncology tomorrow for biopsy outcomes. - Maintain seizure precautions and adjust seizure medication as necessary. - DC norvasc 5mg as she was not taking; BP was fine in hospital per reports and is WNL today. Will need to monitor. Patient was informed and verbally consented to the use of an ambient scribe for clinic note documentation during this visit. Patient Instructions - Take oxycodone as prescribed for pain management and acetaminophen routinely. - Maintain medication adherence, especially seizure medication. - Attend oncology follow-up for biopsy results. - Expect contact from visiting nurse services within two days. - Notify healthcare provider of any new symptoms or changes in cognitive status. RTO 4 weeks for close interim f/u sooner PRN This note is constructed using voice recognition software. While every effort has been made to ensure accuracy in apprentice cook, still errors may have been included Sometimes, these errors may affect the content or meaning of the given sentence . Total time spent caring for the patient today was 60 minutes. This includes time spent before the visit reviewing the chart, time spent during the visit, and time spent after the visit on documentation [facility] Medical History No pertinent past medical history Surgical History History of knee surgery History of reconstruction of both breasts History of mastectomy History of back surgery History of bunionectomy History of cholecystectomy Family History Other Mental health disorder Substance use disorder Social History (Updated 01/23/24 @ 12:39 by Pippa Mooney CMA) Household Members: Children Housing: House 75 years or older and lives alone: No Alcohol intake: current Alcohol intake frequency: holidays/special occasions only Patient Tobacco Use Status: Never used Tobacco e-Cigarette/Vaping Use: Never Used Second Hand Smoke Exposure: No Substance Use Type: Marijuana service: No Current occupational status: disabled Current occupational exposures/hazards: No Sexual orientation: Unable to collect Gender identity: Unable to collect Cognitive needs: No Hearing needs: No Vision needs: Yes (glasses) Questionnaire PHQ-9 Over the last 2 weeks, how often have you been bothered by any of the following problems? 1. Little interest or pleasure in doing things: several days 2. Feeling down, depressed, or hopeless: more than half the days 3. Trouble falling or staying asleep, or sleeping too much: nearly every day 4. Feeling tired or having little energy: nearly every day 5. Poor appetite or overeating: more than half the days 6. Feeling bad about yourself - or that you are a failure or have let yourself or your family down: more than half the days 7. Trouble concentrating on things, such as reading the newspaper or watching television: more than half the days 8. Moving or speaking so slowly that other people could have noticed. Or the opposite - being so fidgety or restless that you have been moving around a lot more than usual: several days 9. Thoughts that you would be better off or of hurting yourself in some way: not at all Total score: 16 42471 - PHQ-9 Billing: Yes Source: Developed by Drs. Manny Vargas, Erika Cook, Morro Shipley and colleagues, with an educational rose from [employer]. Thrive Questionnaire Date Thrive assessed: 10/13/24 I am a: Patient What is your living situation today?: I have a steady place to live Within the past 12 months, did the food you bought not last and you didn't have the money to get more?: Never true Within the past 12 months, did you worry whether your food would run out before you got money to buy more?: Never true Do you have trouble paying for medicines?: No Do you have trouble getting transportation to medical appointments?: No Do you have trouble paying your heating and electricity bill?: No Do you have trouble taking care of your child, family member or friend?: No Do you have trouble with day-to-day activities such as bathing, preparing meals, shopping, managing finances, etc.?: Yes Are you currently unemployed and looking for a job?: No Are you interested in more education?: No Please select the resources that you would like help with: None Currently or been in a relationship where the following occur: No concerns reported THRIVE Score: 0 AUDIT C Alcohol Use Questionnaire (AUDIT-C) 1. How often do you have a drink containing alcohol?: Never Total Score: 0 SCOTT-7 AMB Questionnaire SCOTT-7 Date SCOTT - 7 assessed: 10/13/24 Feeling nervous, anxious, or on edge: 1 = Several days Not being able to stop or control worryin = Several days Worrying too much about different things: 1 = Several days Trouble relaxin = Several days Being so restless that it is hard to sit still: 0 = Not at all Becoming easily annoyed or irritable: 1 = Several days Feeling afraid as if something awful might happen: 0 = Not at all Total SCOTT-7 score (0-4 normal; 5-9 mild; 10-14 moderate; 15-21 severe): 5 Source: Developed by Drs. Manny Vargas, Erika Cook, Morro Shipley and colleagues, with an educational rose from [employer]. SCOTT-7 Assessment Billing SCOTT-7 Assessment Tool: SCOTT-7 Assessment 02876 Physical exam (Primary Care) Vital Signs: Last Vital Signs Pulse 91 10/13/24 10:37 Resp 12 10/13/24 10:37 BP 113/66 10/13/24 10:37 Pulse Ox 95 10/13/24 10:37 Oxygen Delivery Method Room Air 10/13/24 10:37 BMI result Body Mass Index 28.0 Tobacco/Smoking Status: Tobacco use Status Tobacco use date assessed 01/23/24 10/13/24 10:39 Patient Tobacco Use Status Never used Tobacco 10/13/24 10:39 e-Cigarette/Vaping Use Never Used 10/13/24 10:39 PHQ-9: PHQ-9 Score PHQ-9: Total score 16 10/13/24 11:04 Thrive Assessment: Date of Thrive Assessment Date Thrive assessed 10/13/24 10/13/24 10:39 Currently or been in a relationship where the following occur: No concerns reported Coding Level of Care Code TCM High MDM <= 7 Days Complex EM visit Add On G2211 Diagnoses Hospital discharge follow-up Z09 Brain tumor D49.6 Physical deconditioning R53.81 Additional Codes SCOTT-7 Assessment Billing - SCOTT-7 Assessment Tool: SCOTT-7 Assessment 06661 ([id number]) PHQ-9 - 95992 - PHQ-9 Billing: Yes ([id number]) Assessment & Plan Assessment & Plan (1) Hospital discharge follow-up: Code(s): Z09 - Encounter for follow-up examination after completed treatment for conditions other than malignant neoplasm (2) Brain tumor: Comment: high grade L temporal tumor Code(s): D49.6 - Neoplasm of unspecified behavior of brain Category: Medical (3) Physical deconditioning: Code(s): R53.81 - Other malaise Category: Medical Plan . Orders: Referrals [facility]osp[facility] Referral D49.6 - Neoplasm of unspecified behavior of brain, R53.81 - Other malaise, Z09 - Encounter for follow-up examination after completed treatment for conditions other than malignant neoplasm Medications: Changed From atorvastatin overdue for appt; call office to schedule & update contact info. No more refills. 40 mg PO BEDTIME 90 tabs 0RF To atorvastatin 40 mg PO BEDTIME 90 tabs 0RF Refilled omeprazole 40 mg PO DAILY 90 caps 0RF
[2024-10-13 10:37] VITALS: BP 113/66; PULSE 91; RESP 12; O2SAT 95; BMI 28.0
== END 2024-10-13 11:33 | disposition home or self-care (01) ==
PROVIDERS: PCP Nurse Practitioner Family; Visit Provider Nurse Practitioner Family
DX: D49.6 Neoplasm of unspecified behavior of brain (principal); Z09 Encounter for follow-up examination after completed treatment for conditions other than malignant neoplasm; R53.81 Other malaise

== ENCOUNTER → 2024-10-13 10:26 | Outpatient (BNVA) | payer BC, SELFPAY | PROVIDERS: PCP Nurse Practitioner Family; Visit Provider Nurse Practitioner Family | DX: Z09 Encounter for follow-up examination after completed treatment for conditions other than malignant neoplasm (principal); D49.6 Neoplasm of unspecified behavior of brain; R53.81 Other malaise | CPT/HCPCS: 96127 ==

== ENCOUNTER → 2024-10-31 23:59 | Outpatient (BNV) | payer BC, SELFPAY | PROVIDERS: PCP Nurse Practitioner Family; Visit Provider Nurse Practitioner Family | DX: C71.2 Malignant neoplasm of temporal lobe (principal); I95.1 Orthostatic hypotension | CPT/HCPCS: G0180 ==

== ENCOUNTER 2024-12-09 11:27 | Outpatient (AMB) | payer BC, SELFPAY ==
--- NOTE | 2024-12-09 11:29 | MHC.PC.OV ---
Vital Signs 12/09/24 11:36 Height 5 ft 4 in Weight 177 lb 4 oz BMI 30.4 BP 132/70 Blood Pressure Location Lt brachial Position Sitting Respiration 12 Pulse 82 Pulse Source Pulse Oximeter Temp 96.9 F Temp Source Oral Pulse Oximetry (%) 98 Oxygen Delivery Method Room Air Intake Visit Reasons: 4 weeks 30 min FU brain tumor/weakness Intake Note: follow up on brain tumor Rv Service Technician Required: No Allergies aloe Allergy (Severe, Verified 12/09/24 11:52) Itching pentazocine [From Talwin] Allergy (Intermediate, Verified 12/09/24 11:52) itchy Medication List - Last Reconciled 12/09/24 by Divya Archer, SETH- acetaminophen mg PO amlodipine (Norvasc) 2.5 mg PO .daily at bedtime atorvastatin 40 mg PO BEDTIME qmtpmaprch-ulbzyepbfycew-xkwm 50-300-40 mg (Fioricet) 1 cap PO Q8H PRN dexamethasone mg PO BID levetiracetam 1,000 mg PO BID omeprazole 40 mg PO DAILY ondansetron HCl mg PO PRN oxycodone 5 mg PO QID PRN sennosides (senna) 8.6 mg PO DAILY temozolomide mg PO DAILY temozolomide mg PO temozolomide mg PO DAILY Tobacco use date assessed: 12/09/24 Fall risk assessment: 2 + Falls in past year Last assessed Fall Risk: 12/09/24 Dental Screening Dental Screen Date: 12/09/24 Did you have a dental visit in the last 12 months?: Yes Did you have a dental problem in the last 6 months where you did not have access to dental care?: No Was dental information given to patient?: Patient has dentist HPI HPI Comments History of Present Illness Details 69-year-old female orthostatic hypotension, hyperlipidemia, obesity, GERD, seizure disorder, CKD 3, breast cancer (2013), R renal atrophy, chronic small vessel ischemia of brain (CT brain 09/29/24), cardiomegaly (noted on CXR 10/03/24), 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 Eyes - reports exam in the last year Specialist Cardiology - no longer following with Neuro @[facility] cleared Onco at [facility] op[facility]o appt 11/2024 RTO 1 year Here today with Rita MCLAUGHLIN (RN) - The patient is a 69-year-old female presenting with an interim follow-up for glioblastoma multiforme, diagnosed in September 2024. - She was undergoing a regimen of radiation therapy concluding tomorrow and a chemotherapy protocol. Repeat MRI 1 month. - Headache management initially required steroid use, with a structured dexamethasone tapering planned. Using fiorecet as well. - No incidence of seizures noted while on Keppra therapy. - Recent associate sales representative evaluation indicated stable left eye condition and minor changes in the right eye; visual changes are suspected due to radiation therapy. She c/o hard time reading print w/o lots of lighting. - Blood pressure fluctuations noted, since d/c of norvasc. SBP as high as 180 at home. - Stabilization in weight with correction in appetite. Appetite great. Wt increased. - Constipation is controlled with the aid of stool softeners. - No falls. Using walker. VNA services complete as of this week. Physical Exam Awake alert NAD, accompanied by Rita - Neurological- Cranial nerves II through XII intact; muscle strength 5/5 in ext except 4/5 RLE. 6 CIT WNL. - Musculoskeletal- Ambulation with walker - Respiratory- Lungs clear to auscultation bilaterally. - Cardiovascular- Heart rate and rhythm regular. Discussion Notes I explained to the patient and her [id number] that the glioblastoma multiforme is being managed primarily by the oncology team, with the current treatment involving radiation and chemotherapy. The risks associated with long-term steroid use were discussed, including bone demineralization and gastrointestinal issues. The strategy of attempting to taper the dexamethasone was suggested, and the possibility of pulse therapy for headache management was also considered. We also discussed the variability in blood pressure readings and the option to resume low-dose amlodipine to achieve better control. Follow-up with the oncology team and completion of the current radiation therapy courses were emphasized. An upcoming MRI in a month to assess the effect of treatment is planned. Recommendations for blood pressure monitoring at home were discussed, and the patient was advised to reach out if any concerns arise with her condition. Assessment and Plan 1. Glioblastoma Multiforme: Coordination of ongoing care with oncology, current radiation therapy concluding with planned MRI for treatment assessment. 2. Essential Hypertension: Variability noted, resume low-dose amlodipine with home monitoring to ensure proper blood pressure control. 3. Headache disorder: Management with tapering of dexamethasone; consider pulse therapy to balance efficacy and risk. 4. Constipation: Continue nightly stool softeners for effective management secondary to medication. 5. Visual Changes: Continual observation post-radiation to identify potential changes requiring intervention. 6. History of Seizures: Continue on Keppra with expected stability; recent prescriptions verified. Patient Instructions - Complete the last session of scheduled radiation therapy. - Monitor blood pressure regularly and track readings at home. - Take low-dose amlodipine as prescribed to manage blood pressure. - Follow the planned dexamethasone tapering schedule provided by oncology. - Continue to take stool softeners at night to prevent constipation. - Maintain appointments with oncology and ensure upcoming MRI is completed. - Engage in regular exercise as tolerated and approved by the therapy program. - Keep an eye on appetite and nutrition, continue with the current diet to maintain healthy weight gain. - Contact healthcare providers if new symptoms arise, especially headaches or visual changes. - Reach out to cancer organizations for things to aide QOL, such as reading aides. Consent Consent for the management plan, including medication adjustments and follow-up recommendations, was discussed and obtained from the patient and her [id number] during the consultation. We reviewed the potential risks and benefits of continuing or tapering current medications, as well as any necessary precautions given the patient's history of seizures and hypertension. The patient's [id number], acting as a source of support during the visit, was instrumental in confirming understanding and agreement with the treatment strategies discussed. Patient was informed and verbally consented to the use of an ambient scribe for clinic note documentation during this visit. Total time spent caring for the patient today was 40 minutes. This includes time spent before the visit reviewing the chart, time spent during the visit, and time spent after the visit on documentation, reviewing laboratory results, diagnostic imaging, medications, performing a medically necessary evaluation, counseling on diagnoses, care coordination, ordering appropriate tests, ordering appropriate medications, review of tests performed by other providers, reporting test results with the patient, communication with other healthcare providers. RTO 3 MONTHS ROUTINE FU, SOONER PRN PFS Medical History No pertinent past medical history Surgical History History of knee surgery History of reconstruction of both breasts History of mastectomy History of back surgery History of bunionectomy History of cholecystectomy Family History Other Mental health disorder Substance use disorder Social History (Updated 01/23/24 @ 12:39 by Pippa Mooney CMA) Household Members: Children Housing: House 75 years or older and lives alone: No Alcohol intake: current Alcohol intake frequency: holidays/special occasions only Patient Tobacco Use Status: Never used Tobacco e-Cigarette/Vaping Use: Never Used Second Hand Smoke Exposure: No Substance Use Type: Marijuana service: No Current occupational status: disabled Current occupational exposures/hazards: No Sexual orientation: Unable to collect Gender identity: Unable to collect Cognitive needs: No Hearing needs: No Vision needs: Yes (glasses) Questionnaire PHQ-9 Over the last 2 weeks, how often have you been bothered by any of the following problems? 1. Little interest or pleasure in doing things: not at all 2. Feeling down, depressed, or hopeless: not at all 3. Trouble falling or staying asleep, or sleeping too much: not at all 4. Feeling tired or having little energy: not at all 5. Poor appetite or overeating: not at all 6. Feeling bad about yourself - or that you are a failure or have let yourself or your family down: not at all 7. Trouble concentrating on things, such as reading the newspaper or watching television: not at all 8. Moving or speaking so slowly that other people could have noticed. Or the opposite - being so fidgety or restless that you have been moving around a lot more than usual: not at all 9. Thoughts that you would be better off or of hurting yourself in some way: not at all Total score: 0 Depression Screening Interpretation: Negative Depression Screening Done: Yes 24343 - PHQ-9 Billing: Yes Source: Developed by Drs. Manny Vargas, Erika Cook, Morro Shipley and colleagues, with an educational rose from [employer]. Thrive Questionnaire Date Thrive assessed: 12/09/24 I am a: Patient What is your living situation today?: I have a steady place to live Within the past 12 months, did the food you bought not last and you didn't have the money to get more?: I choose not to answer this question Within the past 12 months, did you worry whether your food would run out before you got money to buy more?: I choose not to answer this question Do you have trouble paying for medicines?: I choose not to answer this question Do you have trouble getting transportation to medical appointments?: I choose not to answer this question Do you have trouble paying your heating and electricity bill?: I choose not to answer this question Do you have trouble taking care of your child, family member or friend?: I choose not to answer this question Do you have trouble with day-to-day activities such as bathing, preparing meals, shopping, managing finances, etc.?: I choose not to answer this question Are you currently unemployed and looking for a job?: I choose not to answer this question Are you interested in more education?: I choose not to answer this question Please select the resources that you would like help with: None Currently or been in a relationship where the following occur: I choose not to answer THRIVE Score: 0 AUDIT C Alcohol Use Questionnaire (AUDIT-C) 1. How often do you have a drink containing alcohol?: Never 3. How often do you have six or more drinks on one occasion?: Never Total Score: 0 Score Reviewed/Action Taken: Yes SCOTT-7 AMB Questionnaire SCOTT-7 Date SCOTT - 7 assessed: 12/09/24 Feeling nervous, anxious, or on edge: 0 = Not at all Not being able to stop or control worryin = Not at all Worrying too much about different things: 0 = Not at all Trouble relaxin = Not at all Being so restless that it is hard to sit still: 0 = Not at all Becoming easily annoyed or irritable: 0 = Not at all Feeling afraid as if something awful might happen: 0 = Not at all Total SCOTT-7 score (0-4 normal; 5-9 mild; 10-14 moderate; 15-21 severe): 0 Source: Developed by Drs. Manny Vargas, Erika B.W. Morro Cook and colleagues, with an educational rose from [employer]. SCOTT-7 Assessment Billing SCOTT-7 Assessment Tool: SCOTT-7 Assessment 45422 Physical exam (Primary Care) Vital Signs: Last Vital Signs Temp 96.9 F 12/09/24 11:36 Pulse 82 12/09/24 11:36 Resp 12 12/09/24 11:36 BP 132/70 12/09/24 11:36 Pulse Ox 98 12/09/24 11:36 Oxygen Delivery Method Room Air 12/09/24 11:36 BMI result Body Mass Index 30.4 Tobacco/Smoking Status: Tobacco use Status Tobacco use date assessed 12/09/24 12/09/24 11:32 Patient Tobacco Use Status Never used Tobacco 12/09/24 11:32 e-Cigarette/Vaping Use Never Used 12/09/24 11:32 PHQ-9: PHQ-9 Score PHQ-9: Total score 0 12/09/24 11:32 Depression Screening Interpretation: Negative Thrive Assessment: Date of Thrive Assessment Date Thrive assessed 12/09/24 12/09/24 11:32 Currently or been in a relationship where the following occur: I choose not to answer Coding Level of Care Code Est Pt Level 5 (39446) Complex EM visit Add On G2211 Diagnoses Glioblastoma multiforme of brain C71.9 Primary hypertension I10 Hypertension type: primary hypertension Migraine aura without headache G43.109 Seizure disorder G40.909 CKD stage 3a, GFR 45-59 ml/min N18.31 Cardiomegaly I51.7 Right renal atrophy N26.1 Ischemic cerebrovascular disease I67.82 Additional Codes SCOTT-7 Assessment Billing - SCOTT-7 Assessment Tool: SCOTT-7 Assessment 19459 ([id number]) PHQ-9 - 32228 - PHQ-9 Billing: Yes ([id number]) Assessment & Plan Assessment & Plan (1) Glioblastoma multiforme of brain: Comment: high grade L temporal tumor 09/2024 S/P RADIATION, ON ORAL CHEMO Code(s): C71.9 - Malignant neoplasm of brain, unspecified Category: Medical (2) HTN (hypertension): Comment: Blood pressure at goal less than 130/80 , START amlodipine 2.5 mg p.o. daily. avoid ACEs caused a chronic cough in the past, also avoid beta blockers given low voltage EKG noted at [facility] Code(s): I10 - Essential (primary) hypertension Category: Medical Qualifiers: Hypertension type: primary hypertension Qualified Code(s): I10 - Essential (primary) hypertension (3) Migraine aura without headache: Code(s): G43.109 - Migraine with aura, not intractable, without status migrainosus Category: Medical (4) Seizure disorder: Comment: One seizure in 2019 after stopping narcotics. Maintained on Keppra. Code(s): G40.909 - Epilepsy, unspecified, not intractable, without status epilepticus Category: Medical (5) CKD stage 3a, GFR 45-59 ml/min: Comment: STABLE GGR 45-59 Code(s): N18.31 - Chronic kidney disease, stage 3a Category: Medical (6) Cardiomegaly: Comment: Cardiomegaly (noted on CXR 10/03/24) Code(s): I51.7 - Cardiomegaly Category: Medical (7) Right renal atrophy: Comment: NOTED ON CT OF ABD 09/2024 Code(s): N26.1 - Atrophy of kidney (terminal) Category: Medical (8) Ischemic cerebrovascular disease: Comment: chronic small vessel ischemia of brain (CT brain 09/29/24) Code(s): I67.82 - Cerebral ischemia Category: Medical Plan . Medications: New amlodipine (Norvasc) 2.5 mg PO .daily at bedtime 90 tabs 0RF Refilled atorvastatin 40 mg PO BEDTIME 90 tabs 0RF levetiracetam 1,000 mg PO BID 180 tabs 2RF
[2024-12-09 11:36] VITALS: BP 132/70; PULSE 82; RESP 12; TEMP 36.1; O2SAT 98; BMI 30.4
== END 2024-12-09 12:22 | disposition home or self-care (01) ==
PROVIDERS: PCP Nurse Practitioner Family; Visit Provider Nurse Practitioner Family
DX: C71.9 Malignant neoplasm of brain, unspecified (principal); I10 Essential (primary) hypertension; G43.109 Migraine with aura, not intractable, without status migrainosus; G40.909 Epilepsy, unspecified, not intractable, without status epilepticus; N18.31 Chronic kidney disease, stage 3a; I51.7 Cardiomegaly; N26.1 Atrophy of kidney (terminal); I67.82 Cerebral ischemia

== ENCOUNTER → 2024-12-09 11:27 | Outpatient (BNVA) | payer BC, SELFPAY | PROVIDERS: PCP Nurse Practitioner Family; Visit Provider Nurse Practitioner Family | DX: C71.9 Malignant neoplasm of brain, unspecified (principal); G43.109 Migraine with aura, not intractable, without status migrainosus; G40.909 Epilepsy, unspecified, not intractable, without status epilepticus; I12.9 Hypertensive chronic kidney disease with stage 1 through stage 4 chronic kidney disease, or unspecified chronic kidney disease; N18.31 Chronic kidney disease, stage 3a; I51.7 Cardiomegaly; N26.1 Atrophy of kidney (terminal); I67.82 Cerebral ischemia; Z79.899 Other long term (current) drug therapy; Z92.3 Personal history of irradiation | CPT/HCPCS: 96127 ==

== ENCOUNTER 2025-01-01 11:06 | Outpatient (AMB) | payer BC, SELFPAY ==
--- NOTE | 2025-01-01 11:24 | MHC.PC.OV ---
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 [employer] Required: No Allergies aloe Allergy (Severe, Verified 01/01/25 11:48) Itching pentazocine [From [place]] Allergy (Intermediate, Verified 01/01/25 11:48) itchy Medication List - Last Reconciled 01/01/25 by SETH Banegas-BC acetaminophen mg PO amlodipine (Norvasc) 2.5 mg PO .daily at bedtime apixaban (Eliquis) 5 mg PO BID atorvastatin 40 mg PO BEDTIME ttipgkikiy-zekyzwwctfjnf-luyv 50-300-40 mg (Fioricet) 1 cap PO Q8H PRN dexamethasone mg PO BID levetiracetam 1,000 mg PO BID omeprazole 40 mg PO DAILY ondansetron HCl mg PO PRN oxycodone 5 mg PO QID PRN sennosides (senna) 8.6 mg PO DAILY temozolomide mg PO DAILY temozolomide mg PO temozolomide mg PO DAILY Tobacco use date assessed: 01/01/25 Last assessed Fall Risk: 01/01/25 Dental Screening Dental Screen Date: 01/01/25 Did you have a dental visit in the last 12 months?: Yes Did you have a dental problem in the last 6 months where you did not have access to dental care?: No Was dental information given to patient?: Patient has dentist HPI HPI Comments History of Present Illness Details 69-year-old female orthostatic hypotension, hyperlipidemia, obesity, GERD, seizure disorder, CKD 3, breast cancer (2013), R renal atrophy, chronic small vessel ischemia of brain (CT brain 09/29/24), cardiomegaly (noted on CXR 10/03/24), 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 CT angio of the chest showed large pulmonary emboli clot saddle pulmonary embolism with segmental and subsegmental pulmonary emboli within the left upper lobe pulmonary arteries of the right upper and right middle pulmonary arteries, partial straightening intraventricular septum ? right heart strain, hazy interstitial opacities greatest within the left lung base representing pneumonitis or atelectasis, clusters of pulmonary nodules throughout mild bronchial. Ultrasound of right lower extremity occlusive thrombus throughout the entirety of the right superficial vein right popliteal vein, right gastrocs vein right posterior tibial vein right Treated with heparin drip, echocardiogram, vascular surgery consultation Not a candidate for catheter directed thrombolysis given known intracranial neoplasm Echocardiogram done which showed no right ventricular strain with no major findings therefore no further intervention was warranted Echocardiogram 12/18/2024 shows left ventricle cavity size normal, left ventricular mild hypertrophy no regional LV wall motion abnormalities, ejection fraction 60-65% normal right ventricular systolic function no valvular abnormalities Discharged home on Eliquis starter pack take 10 mg by mouth twice per day for 7 days then take 5 mg x 2 times per Admission Date: 12/17/24 Discharge Date: 12/18/24 Hospital: [facility] Date of interactive contact with Nurse Navigator: as documented in chart Pending diagnostic tests/treatments: None Pending consults: None DME: None PT/OT/GLAZIER METAL FURNITURE: No Referrals: None Medications reconciled & updated. During [facility] visit, the d/c summary was reviewed, along with the need for or follow-up on pending diagnostic tests and treatments, as necessary interaction with other health managed care coordinator who will assume or reassume care of the beneficiary?s system-specific problems was done or is being worked on, education was provided to the beneficiary, family, guardian, and/or caregiver, referrals to establish or re-establish and arrange needed community resources we completed, assistance in scheduling required follow-up with community providers and services & finally updated medication list given to patient/caregiver History of Present Illness Here today w Grandson - The patient is a 69-year-old female presenting with a history of acute pulmonary embolism and deep vein thrombosis. - Presentation of leg pain and swelling post-travel led to hospital admission; placed on Eliquis after diagnosis. - Complains of persistent headache and fatigue since discharge; denies chest pain or shortness of breath. - History of brain cancer; recent visual changes ,worse since last office visit; had eye exam told R eye worsening vision. did revie w/ onco based on last office note. next appt with Dr Menendez 01/08/25, MRI of brain 01/05/25 - Describes insomnia, experiencing more frequent interruptions in sleep. Unsure why. - No new falls but concerns about safety given recent medical history. Needs help w ADLs ex: showering Would like PT, as she is weaker. Would benefit from SN for new dx and med mgmt and education Physical Exam Awake alert NAD, accompanied by Hope - Neurological- Cranial nerves II through XII intact; muscle strength 5/5 in ext except 4/5 RLE. - Musculoskeletal- Ambulation with walker - Respiratory- Lungs clear to auscultation bilaterally. - Cardiovascular- Heart rate and rhythm regular. Trace edema RLE + PP No edema LLE + PP Discussion Notes I discussed with the patient the current status of her pulmonary embolism and deep vein thrombosis, emphasizing the importance of continuing anticoagulation therapy with Eliquis. We confirmed she should stay on this medication for at least six months, due to the increased clot risk associated with her cancer. We also reviewed the significance of reporting any worsening vision or new neurological symptoms, given her history of brain cancer. I provided alcohol and drug counselor on the importance of follow-up imaging for both the chest and leg to assess clot resolution. Referral to VNA services was considered to improve mobility and safety at home. Educational emphasis was placed on monitoring for signs of bleeding due to anticoagulation, especially in the event of a fall. I discussed further outpatient follow-up for continuation of care, and follow-up with her oncologist. Assessment and Plan 1. Acute Pulmonary Embolism: Patient is on Eliquis. Continued anticoagulation therapy recommended. Follow-up CTA in February to evaluate clot resolution. 2. Deep Vein Thrombosis: Continued management with Eliquis, repeat leg ultrasound planned. Start physical therapy for improvement in limb function and prevention of further complications. 3. Brain Cancer: Visual changes noted, ? potential optic nerve involvement. MRI pending to assess current status of brain cancer with coordination through oncology. 4. Fatigue and Insomnia: Patient experiencing fatigue and insomnia likely related to overall condition and treatments. Encouraged routine sleep hygiene practices and will reassess during follow-up. 5. Headache: Monitoring headache severity and frequency. Coordination with oncology to address potential link with cancer or treatment side-effects. 6. Visual Disturbances: Vision changes monitored closely; fu w/ oncology for need for additional interventions. Patient Instructions - Continue taking Eliquis as prescribed. Notify medical team if experiencing excessive bleeding or signs of new blood clots. - Monitor vision changes and report any exacerbation promptly. - Engage in safe physical activities recommended by physical therapy. - Maintain sleep hygiene practices to assist with rest. - Follow up with oncologist as scheduled. Report any worsening headaches or neurological changes immediately - RTO end of February as scheduled, sooner PRN . Consent Patient was informed and verbally consented to the use of an ambient scribe for clinic note documentation during this visit. Total time spent caring for the patient today was 50 minutes. This includes time spent before the visit reviewing the chart, time spent during the visit, and time spent after the visit on documentation, reviewing laboratory results, diagnostic imaging, medications, performing a medically necessary evaluation, counseling on diagnoses, care coordination, ordering appropriate tests, ordering appropriate medications, review of tests performed by other providers, reporting test results with the patient, communication with other healthcare providers. [facility] Medical History (Updated 01/01/25 @ 17:55 by SETH BanegasSYDNI) No pertinent past medical history Surgical History (Updated 01/01/25 @ 07:41 by МАРИНА Banegas) Colon cancer screening declined (~2024) History of back surgery History of bunionectomy History of cholecystectomy History of knee surgery History of mastectomy History of reconstruction of both breasts Family History Other Mental health disorder Substance use disorder Social History (Updated 01/23/24 @ 12:39 by Pippa Mooney [facility]) Household Members: Children Housing: House 75 years or older and lives alone: No Alcohol intake: current Alcohol intake frequency: holidays/special occasions only Patient Tobacco Use Status: Never used Tobacco e-Cigarette/Vaping Use: Never Used Second Hand Smoke Exposure: No Substance Use Type: Marijuana service: No Current occupational status: disabled Current occupational exposures/hazards: No Sexual orientation: Unable to collect Gender identity: Unable to collect Cognitive needs: No Hearing needs: No Vision needs: Yes (glasses) Questionnaire PHQ-9 Over the last 2 weeks, how often have you been bothered by any of the following problems? 1. Little interest or pleasure in doing things: not at all 2. Feeling down, depressed, or hopeless: not at all 3. Trouble falling or staying asleep, or sleeping too much: several days 4. Feeling tired or having little energy: more than half the days 5. Poor appetite or overeating: several days 6. Feeling bad about yourself - or that you are a failure or have let yourself or your family down: not at all 7. Trouble concentrating on things, such as reading the newspaper or watching television: several days 8. Moving or speaking so slowly that other people could have noticed. Or the opposite - being so fidgety or restless that you have been moving around a lot more than usual: not at all 9. Thoughts that you would be better off or of hurting yourself in some way: not at all Total score: 5 30669 - PHQ-9 Billing: Yes Source: Developed by Drs. Manny Vargas, Erika Cook, Morro Shipley and colleagues, with an educational rose from [employer]. Thrive Questionnaire Date Thrive assessed: 01/01/25 I am a: Patient What is your living situation today?: I have a steady place to live Within the past 12 months, did the food you bought not last and you didn't have the money to get more?: I choose not to answer this question Within the past 12 months, did you worry whether your food would run out before you got money to buy more?: I choose not to answer this question Do you have trouble paying for medicines?: I choose not to answer this question Do you have trouble getting transportation to medical appointments?: I choose not to answer this question Do you have trouble paying your heating and electricity bill?: I choose not to answer this question Do you have trouble taking care of your child, family member or friend?: I choose not to answer this question Do you have trouble with day-to-day activities such as bathing, preparing meals, shopping, managing finances, etc.?: I choose not to answer this question Are you currently unemployed and looking for a job?: I choose not to answer this question Are you interested in more education?: I choose not to answer this question Please select the resources that you would like help with: None Currently or been in a relationship where the following occur: I choose not to answer THRIVE Score: 0 SCOTT-7 AMB Questionnaire SCOTT-7 Date SCOTT - 7 assessed: 01/01/25 Feeling nervous, anxious, or on edge: 0 = Not at all Not being able to stop or control worryin = Not at all Worrying too much about different things: 0 = Not at all Trouble relaxin = Not at all Being so restless that it is hard to sit still: 0 = Not at all Becoming easily annoyed or irritable: 0 = Not at all Feeling afraid as if something awful might happen: 0 = Not at all Total SCOTT-7 score (0-4 normal; 5-9 mild; 10-14 moderate; 15-21 severe): 0 Source: Developed by Drs. Manny Vargas, Erika Cook, Morro Shipley and colleagues, with an educational rose from [employer]. SCOTT-7 Assessment Billing SCOTT-7 Assessment Tool: SCOTT-7 Assessment 40229 Physical exam (Primary Care) Vital Signs: Last Vital Signs Temp 97.1 F 01/01/25 11:30 Pulse 76 01/01/25 11:30 Resp 12 01/01/25 11:30 BP 122/72 01/01/25 11:30 Pulse Ox 96 01/01/25 11:30 Oxygen Delivery Method Room Air 01/01/25 11:30 BMI result Body Mass Index 30.2 Tobacco/Smoking Status: Tobacco use Status Tobacco use date assessed 01/01/25 01/01/25 11:27 Patient Tobacco Use Status Never used Tobacco 01/01/25 11:27 e-Cigarette/Vaping Use Never Used 01/01/25 11:27 PHQ-9: PHQ-9 Score PHQ-9: Total score 5 01/01/25 11:44 Thrive Assessment: Date of Thrive Assessment Date Thrive assessed 01/01/25 01/01/25 11:27 Currently or been in a relationship where the following occur: I choose not to answer Coding Level of Care Code TCM High MDM <= 14 days Complex EM visit Add On G2211 Diagnoses Hospital discharge follow-up Z09 Acute saddle pulmonary embolism without acute cor pulmonale I26.92 Acute deep vein thrombosis (DVT) of other specified vein of right lower extremity I82.491 Affected thrombotic vein of extremity: other lower extremity vein Chronicity: acute Additional Codes SCOTT-7 Assessment Billing - SCOTT-7 Assessment Tool: SCOTT-7 Assessment 29417 ([id number]) PHQ-9 - 69021 - PHQ-9 Billing: Yes ([id number]) Assessment & Plan Assessment & Plan (1) Hospital discharge follow-up: Code(s): Z09 - Encounter for follow-up examination after completed treatment for conditions other than malignant neoplasm Category: Medical (2) Acute saddle pulmonary embolism without acute cor pulmonale: Onset Date: ~12/2024 Code(s): I26.92 - Saddle embolus of pulmonary artery without acute cor pulmonale Category: Medical (3) Right leg DVT: Onset Date: ~12/2024 Code(s): I82.401 - Acute embolism and thrombosis of unspecified deep veins of right lower extremity Category: Medical Qualifiers: Affected thrombotic vein of extremity: other lower extremity vein Chronicity: acute Qualified Code(s): I82.491 - Acute embolism and thrombosis of other specified deep vein of right lower extremity Plan . Orders: Orders US venous duplex LE RT 02/16/25 I82.401 - Acute embolism and thrombosis of unspecified deep veins of right lower extremity CT angio chest aorta 02/16/25 I26.92 - Saddle embolus of pulmonary artery without acute cor pulmonale [facility]errals [facility] Referral I26.92 - Saddle embolus of pulmonary artery without acute cor pulmonale, I82.401 - Acute embolism and thrombosis of unspecified deep veins of right lower extremity, Z09 - Encounter for follow-up examination after completed treatment for conditions other than malignant neoplasm
[2025-01-01 11:30] VITALS: BP 122/72; PULSE 76; RESP 12; TEMP 36.2; O2SAT 96; BMI 30.2
== END 2025-01-01 12:21 | disposition home or self-care (01) ==
LOC: HO.HMCFM 11:07
PROVIDERS: PCP Nurse Practitioner Family; Visit Provider Nurse Practitioner Family
DX: I26.92 Saddle embolus of pulmonary artery without acute cor pulmonale (principal); I82.491 Acute embolism and thrombosis of other specified deep vein of right lower extremity; Z09 Encounter for follow-up examination after completed treatment for conditions other than malignant neoplasm

== ENCOUNTER → 2025-01-01 11:06 | Outpatient (BNVA) | payer BC, SELFPAY | PROVIDERS: PCP Nurse Practitioner Family; Visit Provider Nurse Practitioner Family | DX: Z09 Encounter for follow-up examination after completed treatment for conditions other than malignant neoplasm (principal); I26.92 Saddle embolus of pulmonary artery without acute cor pulmonale; I82.491 Acute embolism and thrombosis of other specified deep vein of right lower extremity; Z79.01 Long term (current) use of anticoagulants | CPT/HCPCS: 96127 ==

== ENCOUNTER 2025-03-11 08:33 | Outpatient (AMB) | payer BC, SELFPAY ==
--- NOTE | 2025-03-11 08:35 | MHC.PC.OV ---
Vital Signs 03/11/25 08:44 Height 5 ft 4 in Weight 170 lb 4 oz BMI 29.2 BP 122/70 Blood Pressure Location Rt brachial Position Sitting Respiration 12 Pulse 72 Pulse Source Pulse Oximeter Temp 97.2 F Temp Source Oral Pulse Oximetry (%) 96 Oxygen Delivery Method Room Air Intake Visit Reasons: 3 months routine chronic dz mgmt 30 min Intake Note: HDF from [facility] Supervisor Lending Activities Required: No Allergies aloe Allergy (Severe, Verified 03/11/25 08:55) Itching pentazocine [From Sandra] Allergy (Intermediate, Verified 03/11/25 08:55) itchy Medication List - Last Reconciled 03/11/25 by Divya Archer, ELECTRO WINNING OPERATOR-BC acetaminophen mg PO amlodipine (Norvasc) 2.5 mg PO .daily at bedtime apixaban (Eliquis) 5 mg PO BID atorvastatin 40 mg PO BEDTIME [id number] 50-300-40 mg (Fioricet) 1 cap PO Q8H PRN dexamethasone mg PO BID levetiracetam 1,000 mg PO BID omeprazole 40 mg PO DAILY ondansetron HCl mg PO PRN oxycodone 5 mg PO QID PRN sennosides (senna) 8.6 mg PO DAILY temozolomide mg PO DAILY temozolomide mg PO temozolomide mg PO DAILY Tobacco use date assessed: 03/11/25 Fall risk assessment: 1 Fall in past year Last assessed Fall Risk: 03/11/25 Dental Screening Dental Screen Date: 03/11/25 Did you have a dental visit in the last 12 months?: No Did you have a dental problem in the last 6 months where you did not have access to dental care?: No Was dental information given to patient?: Patient has dentist HPI HPI Comments History of Present Illness Details 69-year-old female orthostatic hypotension, hyperlipidemia, obesity, GERD, seizure disorder, CKD 3, breast cancer (2013), R renal atrophy, chronic small vessel ischemia of brain (CT brain 09/29/24), cardiomegaly (noted on CXR 10/03/24), 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 Admission Date: 02/28/25 Discharge Date: 03/04/25 Hospital: [facility] Date of interactive contact with Nurse Navigator: as documented in chart Pending diagnostic tests/treatments: None Pending consults: None DME: None PT/OT/WET INSPECTOR OPTICAL GLASS: No but would benefit Referrals: None Medications were not reconciled or updated, as i do not have the dc summary During todays TCM visit, the d/c summary was reviewed, along with the need for or follow-up on pending diagnostic tests and treatments, as necessary interaction with other health home care nurse who will assume or reassume care of the beneficiary?s system-specific problems was done or is being worked on, education was provided to the beneficiary, family, guardian, and/or caregiver, referrals to establish or re-establish and arrange needed community resources we completed, assistance in scheduling required follow-up with community providers and services & finally updated medication list given to patient/caregiver History of Present Illness Here with Shawn Streeter, - The patient is a 69-year-old female presenting with a need for follow-up care after recent hospitalization. - Hospitalization on February 28 due to facial swelling and headaches and AMS - Right-sided facial swelling which is now resolved. - AMS resolved. - Eliquis dosage increased from 2.5 mg BID to 5mg BID mg during hospital stay. according to mary - Reports reduction in headache severity post start of new IV checmo infusion medication. - No falls. Using walker. - Needs help w/ ADLS and shower. - taking all meds as directed. Review of Systems - Neurological: Reports headaches, cognitive disturbances, including word-finding difficulty previously. Now only w/ headaches and stable memory changes. - Hematological: Denies new bleeding or bruising. - General: Reports facial swelling on the right side - resolved at this tie. Physical Exam Awake alert NAD, accompanied by mary Shawn - Neurological- Cranial nerves II through XII intact; muscle strength 5/5 in ext except 4/5 RLE. - Musculoskeletal- Ambulation with walker - Respiratory- Lungs clear to auscultation bilaterally. - Cardiovascular- Heart rate and rhythm regular. No edema BLE + PP Alert oriented x3 Discussion Notes I discussed with the patient the importance of managing her anticoagulation therapy, especially with the recent increase in Eliquis dosage. We reviewed the potential benefits of this adjustment in preventing thromboembolic events. I also explained the importance of monitoring her cognitive function, given her recent episodes of word-finding difficulty. We discussed the plan for reinstating home health services, including [facility] and physical therapy, to assist with her recovery and daily activities. The patient was advised to anticipate a call from the visiting nurse within two weeks. We also reviewed the importance of monitoring for signs of increased swelling or cognitive changes and advised her to seek medical attention if these symptoms worsen. I will review d/c summary once available and place any needed orders I will call dtr, Rita, too and let her know of any changes should this be necessary. Otherwise would like to see in 3 mo for routine fu, sooner PRN Patient Instructions - Monitor any changes in swelling or cognitive function. - Expect a call from the visiting nurse within two weeks. - Take Eliquis as prescribed and report any signs of bleeding. - Keep track of headache patterns and inform care team of changes. - Seek medical attention if symptoms worsen. Consent Patient was informed and verbally consented to the use of an ambient scribe for clinic note documentation during this visit. Total time spent caring for the patient today was 45 minutes. This includes time spent before the visit reviewing the chart, time spent during the visit, and time spent after the visit on documentation, reviewing laboratory results, diagnostic imaging, medications, performing a medically necessary evaluation, counseling on diagnoses, care coordination, ordering appropriate tests, ordering appropriate medications, review of tests performed by other providers, reporting test results with the patient, communication with other healthcare providers. [facility] Medical History (Updated 03/11/25 @ 09:18 by Divya Archer [facility]-) No pertinent past medical history Surgical History (Updated 01/01/25 @ 07:41 by Divya Archer [facility]) Colon cancer screening declined (~2024) History of back surgery History of bunionectomy History of cholecystectomy History of knee surgery History of mastectomy History of reconstruction of both breasts Family History Other Mental health disorder Substance use disorder Social History (Updated 01/23/24 @ 12:39 by Pippa Mooney CMA) Household Members: Children Housing: House 75 years or older and lives alone: No Alcohol intake: current Alcohol intake frequency: holidays/special occasions only Patient Tobacco Use Status: Never used Tobacco e-Cigarette/Vaping Use: Never Used Second Hand Smoke Exposure: No Substance Use Type: Marijuana service: No Current occupational status: disabled Current occupational exposures/hazards: No Sexual orientation: Unable to collect Gender identity: Unable to collect Cognitive needs: No Hearing needs: No Vision needs: Yes (glasses) Questionnaire Thrive Questionnaire Date Thrive assessed: 03/11/25 I am a: Patient What is your living situation today?: I have a steady place to live Within the past 12 months, did the food you bought not last and you didn't have the money to get more?: I choose not to answer this question Within the past 12 months, did you worry whether your food would run out before you got money to buy more?: I choose not to answer this question Do you have trouble paying for medicines?: I choose not to answer this question Do you have trouble getting transportation to medical appointments?: I choose not to answer this question Do you have trouble paying your heating and electricity bill?: I choose not to answer this question Do you have trouble taking care of your child, family member or friend?: I choose not to answer this question Do you have trouble with day-to-day activities such as bathing, preparing meals, shopping, managing finances, etc.?: I choose not to answer this question Are you currently unemployed and looking for a job?: I choose not to answer this question Are you interested in more education?: I choose not to answer this question Please select the resources that you would like help with: None Currently or been in a relationship where the following occur: I choose not to answer THRIVE Score: 0 SCOTT-7 AMB Questionnaire SCOTT-7 Date SCOTT - 7 assessed: 01/01/25 Source: Developed by Drs. Manny Vargas, Erika Cook, Morro Shipley and colleagues, with an educational rose from [employer]. Physical exam (Primary Care) Vital Signs: Last Vital Signs Temp 97.2 F 03/11/25 08:44 Pulse 72 03/11/25 08:44 Resp 12 03/11/25 08:44 BP 122/70 03/11/25 08:44 Pulse Ox 96 03/11/25 08:44 Oxygen Delivery Method Room Air 03/11/25 08:44 BMI result Body Mass Index 29.2 Tobacco/Smoking Status: Tobacco use Status Tobacco use date assessed 03/11/25 03/11/25 08:41 Patient Tobacco Use Status Never used Tobacco 03/11/25 08:37 e-Cigarette/Vaping Use Never Used 03/11/25 08:37 Thrive Assessment: Date of Thrive Assessment Date Thrive assessed 03/11/25 03/11/25 08:37 Currently or been in a relationship where the following occur: I choose not to answer Coding Level of Care Code TCM High MDM <= 7 Days Complex EM visit Add On G2211 Diagnoses Hospital discharge follow-up Z09 Primary hypertension I10 Hypertension type: primary hypertension Physical deconditioning R53.81 Glioblastoma multiforme of brain C71.9 Assessment & Plan Assessment & Plan (1) Hospital discharge follow-up: Code(s): Z09 - Encounter for follow-up examination after completed treatment for conditions other than malignant neoplasm Category: Medical (2) HTN (hypertension): Comment: Blood pressure at goal less than 130/80 , amlodipine 2.5 mg p.o. daily. avoid ACEs caused a chronic cough in the past, also avoid beta blockers given low voltage EKG noted at [facility] Code(s): I10 - Essential (primary) hypertension Category: Medical Qualifiers: Hypertension type: primary hypertension Qualified Code(s): I10 - Essential (primary) hypertension (3) Physical deconditioning: Code(s): R53.81 - Other malaise Category: Medical (4) Glioblastoma multiforme of brain: Comment: high grade L temporal tumor 09/2024 S/P RADIATION, ON ORAL CHEMO Code(s): C71.9 - Malignant neoplasm of brain, unspecified Category: Medical Plan . Orders: Referrals [facility] Referral C71.9 - Malignant neoplasm of brain, unspecified, I10 - Essential (primary) hypertension, R53.81 - Other malaise, Z09 - Encounter for follow-up examination after completed treatment for conditions other than malignant neoplasm
[2025-03-11 08:44] VITALS: BP 122/70; PULSE 72; RESP 12; TEMP 36.2; O2SAT 96; BMI 29.2
== END 2025-03-11 09:12 | disposition home or self-care (01) ==
LOC: HO.HMCFM 08:34
PROVIDERS: PCP Nurse Practitioner Family; Visit Provider Nurse Practitioner Family
DX: I10 Essential (primary) hypertension (principal); R53.81 Other malaise; C71.9 Malignant neoplasm of brain, unspecified; Z09 Encounter for follow-up examination after completed treatment for conditions other than malignant neoplasm

== ENCOUNTER → 2025-03-11 08:33 | Outpatient (BNVA) | payer BC, SELFPAY | PROVIDERS: PCP Nurse Practitioner Family; Visit Provider Nurse Practitioner Family ==

== ENCOUNTER 2025-04-24 10:05 | Outpatient (AMB) | payer BC, SELFPAY ==
--- NOTE | 2025-04-24 10:19 | A.OFFPC_ITS ---
Vital Signs 3 04/24/25 10:25 04/24/25 11:14 Height 5 ft 4 in Weight 166 lb BMI 28.5 BP 124/72 Blood Pressure Location Rt brachial Position Sitting Pulse 105 H 80 Pulse Source Pulse Oximeter Pulse Oximeter Temp 97.2 F Temp Source Oral Pulse Oximetry (%) 96 Oxygen Delivery Method Room Air Intake Visit Reasons: Hospital discharge from [facility]. Intake Note: Hospital Discharge from [facility] [place] Former Machine Operator Required: No Allergies aloe Allergy (Severe, Verified 04/24/25 10:51) Itching pentazocine (From Talwin) Allergy (Intermediate, Verified 04/24/25 10:51) itchy Medication List - Last Reconciled 04/24/25 by SETH Banegas- acetaminophen mg PO amlodipine (Norvasc) 5 mg PO DAILY apixaban (Eliquis) 5 mg PO BID atorvastatin 40 mg PO BEDTIME levetiracetam 1,000 mg PO BID losartan 50 mg PO DAILY omeprazole 40 mg PO DAILY ondansetron HCl mg PO PRN oxycodone 5 mg PO QID PRN sennosides (senna) 8.6 mg PO DAILY Tobacco use date assessed: 04/24/25 Fall risk assessment: No Falls in past year Last assessed Fall Risk: 04/24/25 Dental Screening Dental Screen Date: 04/24/25 Did you have a dental visit in the last 12 months?: Yes Did you have a dental problem in the last 6 months where you did not have access to dental care?: No Was dental information given to patient?: Patient has dentist HPI HPI Comments 2 History of Present Illness0 Details Here today for a Transitional Care Management Visit Discharge summary reviewed. Admission Date: 04/01/25 to [facility], transferred to [facility] 04/02/25 Discharge Date: 04/09/25 Hospital: [facility] > [facility] Date of interactive contact with Nurse Navigator: as documented in chart Pending diagnostic tests/treatments: N Pending consults: N DME: N PT/OT/CASH APPLICATIONS COORDINATOR: Y Referrals: N Medications reconciled & updated. During todays TCM visit, the d/c summary was reviewed, along with the need for or follow-up on pending diagnostic tests and treatments, as necessary interaction with other health day care teacher who will assume or reassume care of the beneficiary?s system-specific problems was done or is being worked on, education was provided to the beneficiary, family, guardian, and/or caregiver, referrals to establish or re-establish and arrange needed community resources we completed, assistance in scheduling required follow-up with community providers and services & finally updated medication list given to patient/caregiver History of Present Illness - The patient is a 69-year-old female pr esenting for hospital discharge follow- up post dental abscess treatment. - Hospitalized for facial swelling due t o a dental abscess, likely worsened by chemotherapy. - Treated with IV antibiotics, completed oral Augmentin post-discharge. - Reports ongoing drainage from the surg ical site, with visiting nurse care. - Pain has recently developed in the jaw and neck L side, started yesterday - Chemotherapy temporarily paused due to infection concerns. Had MRI this AM w onco fu 04/30 to determine plan - Eating and drinking normally. No feve rs. No falls. Review of Systems - General: Reports feeling tired. - Oral: Reports pain in the jaw area; on going drainage from the incision site. - Gastrointestinal: Denies diarrhea now; past issue during antibiotic use. - Musculoskeletal: Denies leg pain. - Neurological: Reports feeling fatigued . - Lymphatic: Reports past swelling of ly mph nodes. Physical Exam General: Well developed, well nourished, appears tired and fatigued. In no acute distress. Accompanied by DIL Hope. Head: Normocephalic, atraumatic. Mouth: Multiple dental caries, MMM Neck: Supple, see picture. Scant yellow drainage on old dressing. No fluctuance. Mild induration noted. No excessive warmth. Managing secretions. Musculoskeletal: Joints are nontender, without swelling, redness, or effusions. Pulses: Peripheral pulses are equal and palpable bilaterally. Psych: Mood and affect appropriate, though appears tired and less energetic than usual. Discussion Notes I discussed with the patient the recent diagnosis of a dental abscess, likely exacerbated by ongoing chemotherapy. We reviewed the management steps taken, including the use of IV and oral antibiotics, and the concerns regarding ongoing drainage and recent discomfort in the jaw and neck areas. Clindamycin was recommended as an alternative due to previous gastrointestinal side effects with Augmentin. We addressed the importance of follow-up with oral surgery for further evaluation of potential ongoing abscess issues. The patient was advised on maintaining daily activity to improve endurance in anticipation of an upcoming vacation. Assessment and Plan 1. Dental Abscess - Recommend follow-up with oral surgery. Referral placed to [facility]; she saw Dr Cox for surgery. - Prescribe clindamycin for 10 days. - Wet to dry dressing applied; cont unti l healed. - Cont VNA 2. Hypertension - Continue management with losartan & no rvasc 5mg 3. Cancer (active chemotherapy) - Hold current chemotherapy; follow-up p ost-MRI. Patient Instructions - Continue prescribed antibiotics as dir ected. - Follow up with oral surgery as recomme nded. - Monitor for signs of infection or incr eased swelling. - Maintain daily activity to improve end urance. RTO end of May as scheduled sooner PRN Consent Patient was informed and verbally consented to the use of an ambient scribe for clinic note documentation during this visit. Total time spent caring for the patient today was 45 minutes. This includes time spent before the visit reviewing the chart, time spent during the visit, and time spent after the visit on documentation, reviewing laboratory results, diagnostic imaging, medications, performing a medically necessary evaluation, counseling on diagnoses, care coordination, ordering appropriate tests, ordering appropriate medications, review of tests performed by other providers, reporting test results with the patient, communication with other healthcare providers. [facility] Medical History (Updated 04/24/25 @ 11:22 by SETH Banegas-SYDNI) No pertinent past medical history Surgical History (Updated 01/01/25 @ 07:41 by SETH Banegas-SYDNI) Colon cancer screening declined (~2024) History of back surgery History of bunionectomy History of cholecystectomy History of knee surgery History of mastectomy History of reconstruction of both breasts Family History Other Mental health disorder Substance use disorder Social History (Updated 01/23/24 @ 12:39 by Pippa Mooney CMA) Household Members: Children Housing: House 75 years or older and lives alone: No Alcohol intake: current Alcohol intake frequency: holidays/special occasions only Patient Tobacco Use Status: Never used Tobacco e-Cigarette/Vaping Use: Never Used Second Hand Smoke Exposure: No Substance Use Type: Marijuana service: No Current occupational status: disabled Current occupational exposures/hazards: No Sexual orientation: Unable to collect Gender identity: Unable to collect Cognitive needs: No Hearing needs: No Vision needs: Yes (glasses) Questionnaire Thrive Questionnaire Date Thrive assessed: 12/09/24 I am a: Patient What is your living situation today?: I have a steady place to live Within the past 12 months, did the food you bought not last and you didn't have the money to get more?: I choose not to answer this question Within the past 12 months, did you worry whether your food would run out before you got money to buy more?: I choose not to answer this question Do you have trouble paying for medicines?: I choose not to answer this question Do you have trouble getting transportation to medical appointments?: I choose not to answer this question Do you have trouble paying your heating and electricity bill?: I choose not to answer this question Do you have trouble taking care of your child, family member or friend?: I choose not to answer this question Do you have trouble with day-to-day activities such as bathing, preparing meals, shopping, managing finances, etc.?: I choose not to answer this question Are you currently unemployed and looking for a job?: I choose not to answer this question Are you interested in more education?: I choose not to answer this question Please select the resources that you would like help with: None Currently or been in a relationship where the following occur: I choose not to answer THRIVE Score: 0 SCOTT-7 AMB Questionnaire SCOTT-7 Date SCOTT - 7 assessed: 01/01/25 Source: Developed by Drs. Manny Vargas, Erika Cook, Morro Shipley and colleagues, with an educational rose from [employer]. Physical exam (Primary Care) Vital Signs: Last Vital Signs Temp 97.2 F 04/24/25 10:25 Pulse 105 H 04/24/25 10:25 BP 124/72 04/24/25 10:25 Pulse Ox 96 04/24/25 10:25 Oxygen Delivery Method Room Air 04/24/25 10:25 BMI result Body Mass Index 28.5 Tobacco/Smoking Status: Tobacco use Status Tobacco use date assessed 04/24/25 04/24/25 10:21 Patient Tobacco Use Status Never used Tobacco 04/24/25 10:21 e-Cigarette/Vaping Use Never Used 04/24/25 10:21 Thrive Assessment: Date of Thrive Assessment Date Thrive assessed 12/09/24 04/24/25 10:21 Currently or been in a relationship where the following occur: I choose not to answer Coding Level of Care Code TCM High MDM <= 14 days Complex EM visit Add On G2211 Diagnoses Hospital discharge follow-up Z09 Tooth abscess K04.7 Primary hypertension I10 Hypertension type: primary hypertension Glioblastoma multiforme of brain C71.9 Assessment & Plan Assessment & Plan (1) Hospital discharge follow-up: Code(s): Z09 - Encounter for follow-up examination after completed treatment for conditions other than malignant neoplasm Category: Medical (2) Tooth abscess: Onset Date: 04/2025 Comment: WITH COMPLICATION OF NECK AND FACIAL ABCESS S/P DRAINAGE DR COX ORAL SURGEON Code(s): K04.7 - Periapical abscess without sinus Category: Medical (3) HTN (hypertension): Comment: Blood pressure at goal less than 130/80 avoid ACEs caused a chronic cough in the past, also avoid beta blockers given low voltage EKG noted at [facility] Code(s): I10 - Essential (primary) hypertension Category: Medical Qualifiers: Hypertension type: primary hypertension Qualified Code(s): I10 - Essential (primary) hypertension (4) Glioblastoma multiforme of brain: Comment: high grade L temporal tumor 09/2024 S/P RADIATION, ON ORAL CHEMO Code(s): C71.9 - Malignant neoplasm of brain, unspecified Category: Medical Plan . Orders: Referrals 2 Oral Surgery Referal K04.7 - Periapical abscess without sinus, Z09 - Encounter for follow-up examination after completed treatment for conditions other than malignant neoplasm Medications: New 2 clindamycin HCl (Cleocin HCl) 300 mg PO BID 20 caps 0RF Changed 2 From amlodipine (Norvasc) 10 mg PO DAILY 90 tabs 0RF To amlodipine (Norvasc) 5 mg PO DAILY
[2025-04-24 10:25] VITALS: BP 124/72; PULSE 105; TEMP 36.2; O2SAT 96; BMI 28.5
--- OUTSIDE RECORDS SUMMARY | 2025-04-24 10:32 | XMS_ITS | Clinical Summary ---
Author Organization [facility] Address [address] [place] [address] Phone Care Team Providers Care Data Entry Specialist Name Role Phone Divya Archer Primary Care Provider [phone] Allergies Active Allergy Reactions Criticality Noted Date Comments Aloe 09/29/2024 Eucalyptus 09/29/2024 Talwin Compound Itching 09/29/2024 Medications atorvastatin (LIPITOR) 40 mg tablet Take 1 tablet (40 mg total) by mouth 1 (one) time each day. Active omeprazole (PriLOSEC) [address] capsule Take 1 capsule (40 mg total) by mouth at bedtime. Do not crush or chew. Active senna (SENOKOT) 8.6 mg tablet Take 2 tablets (17.2 mg total) by mouth at bedtime. Active apixaban (ELIQUIS) 5 mg tablet Take 1 tablet (5 mg total) by mouth 2 (two) times a day. 60 each 2 025 Active prochlorperazine (COMPAZINE) 10 mg tabletIndications :Glioblastoma multiforme of brain (CMS/HCC V24, CMS/HCC V28) Take 1 tablet (10 mg total) by mouth every 6 (six) hours if needed for nausea or vomiting. 60 tablet 3 025 Active dexAMETHasone (DECADRON) 2 mg tablet Take 4mg BID for seven days then take 4mg AM and 2mg PM for seven days 49 each Active oxyCODONE (ROXICODONE) 5 mg immediate release tablet Take 1 tablet (5 mg total) by mouth every 4 (four) hours if needed for moderate pain or severe pain. Max Daily Amount: 30 mg 60 tablet Active amLODIPine (NORVASC) 5 mg tablet Take 2 tablets (10 mg total) by mouth 1 (one) time each day. 60 each 1 025 2024 Active naloxone (NARCAN) 0.4 mg/mL injection Infuse 0.1 mL (0.04 mg total) into a venous catheter if needed for opioid reversal (IV Push every 1 min for 10 doses) for up to 10 doses. 1 mL Active levETIRAcetam (KEPPRA) 1,000 mg tablet Take 1 tablet (1,000 mg total) by mouth 2 (two) times a day. 60 each 025 2024 Active levETIRAcetam (KEPPRA) 1,000 mg tablet Take 1 tablet (1,000 mg total) by mouth 2 (two) times a day. 2024 Discontinued butalbital-acetam inophen-caffeine (FIORICET, ESGIC) 50-325-40 mg per tablet Take 2 tablets by mouth every 8 (eight) hours if needed for headaches. 90 tablet 025 2024 Discontinued(S top Taking at Discharge) amLODIPine (NORVASC) 5 mg tablet Take 1 tablet (5 mg total) by mouth 1 (one) time each day. 30 each 025 2024 Discontinued(R eorder) oxyCODONE (ROXICODONE) 15 mg immediate release tablet Take 1 tablet (15 mg total) by mouth 1 (one) time each day if needed. Max Daily Amount: 15 mg 020 2024 Discontinued amLODIPine (NORVASC) 5 mg tablet Take 2 tablets (10 mg total) by mouth 1 (one) time each day. 60 each 025 2024 Discontinued(R eorder) ondansetron ODT (ZOFRAN-ODT) 4 mg disintegrating tablet Take 1 tablet (4 mg total) by mouth every 8 (eight) hours if needed for vomiting or nausea for up to 7 days. 20 tablet 025 2024 acetaminophen (TYLENOL) 325 mg tablet Take 2 tablets (650 mg total) by mouth every 6 (six) hours if needed for mild pain, fever - temperature GREATER than 38 C (100.4 F) or headaches for up to 10 days. 30 tablet 025 2024 ampicillin-sulbac jacobson 3 g in sodium chloride 0.9 % 100 mL IVPB Infuse 3 g into a venous catheter every 12 (twelve) hours for 14 doses. 1 each 025 2024 Active Problems Problem Noted Date Diagnosed Date Acute periodontal abscess 04/02/2025 Gas gangrene of neck ([facility] V24, [facility] V28) 04/02/2025 Glioblastoma multiforme of brain ([facility] V24, [place] V28) 10/13/2024 Status post craniotomy 10/02/2024 Resolved Problems Problem Noted Date Diagnosed Date Resolved Date Glioblastoma multiforme of t emporal lobe ([facility] V24, [facility] V28) 02/28/2025 04/02/2025 Acute saddle pulmonary embol ism, unspecified whether acute cor pulmonale present ([facility] V24, [facility] V28) 12/17/2024 04/02/2025 Acute postoperative pain 10/02/2024 Brain neoplasm ([facility] V24, [facility] V28) 09/30/2024 10/14/2024 Assessment & Plan (10/13/2024 4:40 PM EST): Patient is 11 days s/p left temporal brain biopsy, path: GBM, specimen sent out to [facility] as well for second opinion, pending. Patient has history of chronic headaches, which has still been bothering her postop, she would rate her daily headaches 3-7/10. She feels like these are her typical headaches, no change postop. She has not had any wound drainage, fevers, sweats chills. She is eating well. No falls or weakness. Ms. Rosas is doing well postop, has appointment with oncology tomorrow to go over path results and plan for adjuvant therapy. She also saw her PCP this morning, she has been on Keppra since 2020 for seizures, they plan to refer her to neurology to manage the Keppra. I asked her to call with any concerns or questions. All questions answered on today's visit. Brain mass 09/29/2024 10/14/2024 Encounters Date Type Department Care Team Description 04/24/2025 8:26 AM EDT Hospital Encounter [facility] MRI [address] [place] [phone] Glioblastoma multiforme of brain ([facility] [place]24, [facility] V28) 04/08/2025 Telephone [facility] Hematology Oncology [address] [place] [phone] Amelia Lim [place] 04/01/2025 9:57 PM EDT - 04/02/2025 11:08 AM EDT Hospital Encounter [facility] Intermediate Care Unit [address] [place] [phone] Raymond Warner MD Acute periodontal abscess (Primary Dx); Gas gangrene of neck ([facility] V24, [facility] V28) Discharge Disposition: Short Term Hospital 03/26/2025 9:00 AM EDT - 03/26/2025 11:59 PM EDT Hospital Encounter [facility] Infusion Center [address] [place] [phone] Tara Bansal, DO Glioblastoma multiforme of brain ([facility] V24, [facility] V28) (Primary Dx) Discharge Disposition: Home or Self Care 03/25/2025 11:30 AM EDT Office Visit [facility] Hematology Oncology [address] [place] [phone] Tara Bansal, DO Glioblastoma multiforme of brain ([facility] V24, [facility] V28) (Primary Dx) 03/23/2025 Telephone [facility] Hematology Oncology [address] [place] [phone] Tara Bansal, DO 03/06/2025 10:21 AM EDT - 03/06/2025 11:59 PM EDT Hospital Encounter [facility] Infusion Center [address] [place] [phone] Tara Bansal, [facility] V28) (Primary Dx) Discharge Disposition: Home or Self Care 03/06/2025 Telephone [facility] Hematology Oncology [address] [place] [phone] Tara Bansal, 03/02/2025 Telephone [facility] Hematology Oncology [address] [place] [phone] Tara Bansal, DO 02/28/2025 2:04 PM EDT - 03/04/2025 12:33 PM EDT Hospital Encounter [facility] Urology Unit [address] [place] [phone] Anders Friedman MD Bukalo, Nermina, MD Japaridze, Anna, MD Rasul, Yar M, MD Glioblastoma multiforme of temporal lobe [facility] V28) (Primary Dx); Glioblastoma multiforme of brain ([facility] V24, [facility] Discharge Disposition: Home or Self Care 02/26/2025 9:17 AM EDT - 02/26/2025 11:59 PM EDT Hospital Encounter [facility] MRI [address] [place] [phone] Glioblastoma multiforme of brain [facility] V28) Discharge Disposition: Home or Self Care 02/26/2025 Telephone [facility] Hematology Oncology [address] [place] [phone] Tara Bansal DO Temodar 02/11/2025 Telephone [facility] Hematology Oncology [address] [place] [phone] Tara Bansal DO 02/09/2025 Telephone [facility] Hematology Oncology [address] [place] [phone] Tara Bansal DO Headache 02/04/2025 10:15 AM EDT Office Visit [facility] Hematology Oncology [address] [place] [phone] Tara Bansal, Glioblastoma multiforme of brain ([facility] V24, [facility] V28) (Primary Dx) from Last 3 Months Surgical History Surgery Date Site/Laterality Comments TOTAL KNEE ARTHROPLASTY PROCEDURE: IA ARTHRP KNE CONDYLE&PLATU MEDIAL&LAT COMPARTMENTS MASTECTOMY PROCEDURE: HISTORICAL MASTECTOMY; COMMENT: bilateral BACK SURGERY PROCEDURE: HISTORICAL BACK SURGERY; COMMENT: l4 l5 plus fusion BUNIONECTOMY PROCEDURE: BUNION SURGERY, SIMPLE REMOVAL CHOLECYSTECTOMY PROCEDURE: IA LAPAROSCOPY SURG CHOLECYSTECTOMY BACK SURGERY ? L4-5 surgery in [place] MASTECTOMY BREAST RECONSTRUCTION Bilateral cancer, no XRT or chemtx TOTAL KNEE ARTHROPLASTY Left CHOLECYSTECTOMY CHUCKIE BUNIONECTOMY Bilateral BRAIN BIOPSY 10/02/2024 Left temporal mass, path: GBM, Dr. Mas Medical History Medical History Date Comments Cancer of breast ([facility] V2 4, [facility] V28) DX:Cancer of breast (HCC); C OMMENT: bilateral Back pain DX:Back pain Breast cancer ([facility] V24, [facility] V28) Renal disorder Hypertension Seizure ([facility] V24, [facility] V28) 2020 Patient had 2 seizures in 1 day, on Keppra Glioblastoma multiforme of b rain ([facility] V24, [facility] V28) Family History Medical History Relation Name Comments Kidney disease Father Other: lung disease Father Alzheimer's disease Mother Bladder Cancer Mother Cancer Mother Dementia Mother Alzheimer's disease Other Relation Name Status Comments Father Mother Other Social History Tobacco Use Types Packs/Day Years Used Date Smoking Tobacco: Never Smokeless Tobacco: Never Tobacco Cessation:Counseling Given: Not Answered Alcohol Use Standard Drinks/Week Comments Yes 0 (1 standard drink = 0.6 oz pur e alcohol) rare, 1-2x per year Interpersonal Safety Answer Date Record ed Physical Abuse 04/02/2025 Verbal Abuse 04/02/2025 Comments No Sex and Gender Information Value Date Recorded Sex Assigned at Female 10/20/2024 4:41 PM EST Legal Sex Female 11:14 PM EST Gender Identity Female 10/20/2024 4:41 PM EST Sexual Orientation Choose not to disclose 2024 2:15 AM EST Obstetrics History Last Filed Vital Signs Vital Sign Reading Time Taken Comments Blood Pressure 123/83 04/02/2025 8:50 AM EDT Pulse 97 04/02/2025 8:50 AM EDT Temperature 36.9 C (98.4 F) 04/02/2025 8:50 AM EDT Respiratory Rate 18 04/02/2025 8:50 AM EDT Oxygen Saturation 93% 04/02/2025 8:50 AM EDT Inhaled Oxygen Concentration - - Weight 77.6 kg (171 lb 1.2 oz) 04/02/2025 8:50 A M EDT Height 160 cm (5' 2.99 ) 04/02/2025 8:50 AM EDT Body Mass Index 30.31 04/02/2025 8:50 AM EDT Plan of Treatment Upcoming Encounters Date Type Department Care Team (Late st Contact Info) Description 04/30/2025 2:30 PM EDT Office Visit [facility] Hematology Oncology [address] [place] [phone] Tara Bansal, [address] [place] [address] Health Maintenance Due Date Last Done Comments Zoster Vaccines (1 of 2) 1974 Pneumococcal Vaccine: 50+ Years (2 of 2 - PCV) 12/08/2014 12/08/2013 RSV Immunization Adult Patients (1 - Risk 60-74 years 1-dose series) 2015 COVID-19 Vaccine (3 - Pfizer risk series) 03/29/2021 03/01/2021, 02/05/2021 Cholesterol Screening (Lipid Panel) 09/29/2024 Colorectal Cancer Screening: Colonoscopy 09/29/2024 Hepatitis C Screening 09/29/2024 Medicare Annual Wellness Visit 09/29/2024 Osteoporosis Screening (Bone Density Screening) 09/29/2024 Social Influencers of Health Screening 09/29/2024 Influenza Vaccine (#1) 2025 , 07/24/2019, 08/01/2018, Additional history exists Depression Screening 03/06/2026 03/06/2025 Falls Risk Assessment 04/02/2026 04/02/2025 Hypertension/CHF/CAD Annual BMP Blood Test 04/02/2026 04/02/2025, 04/01/2025, 03/25/2025, Additional history exists DTaP,Tdap,and Td Vaccines (2 - Td or Tdap) 12/13/2032 12/13/2022 Breast Cancer Screening Discontinued 12/03/2013 HIB Vaccines Aged Out No longer eligi ble based on patient's age to complete this topic HPV Vaccines Aged Out No longer eligi ble based on patient's age to complete this topic Hepatitis A Vaccines Aged Out No long er eligible based on patient's age to complete this topic Hepatitis B Vaccines Aged Out No long er eligible based on patient's age to complete this topic IPV Vaccines Aged Out No longer eligi ble based on patient's age to complete this topic MMR Vaccines Aged Out No longer eligi ble based on patient's age to complete this topic Meningococcal ACWY Vaccine Aged Out N o longer eligible based on patient's age to complete this topic Meningococcal B Vaccine Aged Out No l onger eligible based on patient's age to complete this topic RSV Immunization Patients Under 20 months Aged Out No longer eligible based on patient's age to complete this topic Varicella Vaccines Aged Out No longer eligible based on patient's age to complete this topic Medical Devices Implanted Type Area Gettering Filament Machine Operator Device Identifier Shelf Expiration Date Model / Serial / Lot Powder Surgifoam Absorb Gel - Sn/A - [id number] Implanted:Qty: 1 on 10/02/2024 by Marian Mas MD at [facility] [employer] Left: Brain [employer] [id number]/18/[id number] / N/A / [id number] Procedures Procedure Name Priority Date/Time Associated Diagnosis Comments ECG ANNOTATED 04/03/2025 CBC WITH AUTO DIFFERENTIAL Routine 04/02/2025 5:56 AM EDT CBC AND DIFFERENTIAL Routine 04/02/2025 5:56 AM EDT PHOSPHORUS Routine 04/02/2025 5:56 AM EDT MAGNESIUM Routine 04/02/2025 5:56 AM EDT BASIC METABOLIC PANEL Routine 04/02/2025 5:56 AM EDT LACTATE Routine 04/02/2025 5:03 AM EDT XR CHEST 1 VIEW STAT 04/02/2025 4:18 AM EDT PROTHROMBIN TIME WITH INR Routine 04/02/2025 2:35 AM EDT BLOOD CULTURE PATHOGENS BY PCR Routine 04/02/2025 2:21 AM EDT CULTURE BLOOD STAT 04/02/2025 2:21 AM EDT BLOOD CULTURE PATHOGENS BY PCR Routine 04/02/2025 2:09 AM EDT CULTURE BLOOD STAT 04/02/2025 2:09 AM EDT LACTATE, WITH REFLEX Timed 04/02/2025 12:[address] ANGIO HEAD/NECK WO AND/OR W CONTRAST STAT 04/01/2025 11:47 PM EDT MANUAL DIFFERENTIAL - SYSMEX WAM STAT 04/01/2025 10:37 PM EDT CBC WITH AUTO DIFFERENTIAL STAT 04/01/2025 10:37 PM EDT ACTIVATED PARTIAL THROMBOPLASTIN TIME STAT 04/01/2025 10:37 PM EDT PROTHROMBIN TIME WITH INR STAT 04/01/2025 10:37 PM EDT CBC AND DIFFERENTIAL STAT 04/01/2025 10:37 PM EDT LACTATE, WITH REFLEX STAT 04/01/2025 10:37 PM EDT COMPREHENSIVE METABOLIC PANEL STAT 04/01/2025 10:37 PM EDT ECG 12-LEAD STAT 04/01/2025 10:25 PM EDT PROTEIN, URINE, RANDOM Routine 9:05 AM EDT Glioblastoma multiforme of brain (CMS/HCC V24, CMS/HCC V28) CBC WITH AUTO DIFFERENTIAL Routine 03/25/2025 11:22 AM EDT Glioblastoma multiforme of brain (CMS/HCC V24, CMS/HCC V28) COMPREHENSIVE METABOLIC PANEL Routine 03/25/2025 11:22 AM EDT Glioblastoma multiforme of brain (CMS/HCC V24, CMS/HCC V28) CBC AND DIFFERENTIAL Routine 03/25/2025 11:22 AM EDT Glioblastoma multiforme of brain (CMS/HCC V24, CMS/HCC V28) PROTEIN, URINE, RANDOM Routine 11:27 AM EDT Glioblastoma multiforme of brain (CMS/HCC V24, CMS/HCC V28) ECG ANNOTATED 03/05/2025 CBC WITH AUTO DIFFERENTIAL Timed 03/04/2025 6:22 AM EDT CBC AND DIFFERENTIAL Timed 03/04/2025 6:22 AM EDT SST - GOLD Routine 03/04/2025 6:20 AM EDT EXTRA TUBES Routine 03/04/2025 6:20 AM EDT CBC WITH AUTO DIFFERENTIAL Timed 03/03/2025 6:32 AM EDT BASIC METABOLIC PANEL Routine 03/03/2025 6:32 AM EDT CBC AND DIFFERENTIAL Timed 03/03/2025 6:32 AM EDT COMPLETE BLOOD COUNT Routine 03/01/2025 6:02 AM EDT BASIC METABOLIC PANEL Routine 03/01/2025 6:02 AM EDT POCT GLUCOSE BLOOD Routine 02/28/2025 5: [address] HEAD WO CONTRAST STAT 02/28/2025 3 :11 PM EDT ECG 12-LEAD STAT 02/28/2025 2:46 PM EDT CBC WITH AUTO DIFFERENTIAL STAT 02/28/2025 2:17 PM EDT TROPONIN I HIGH SENSITIVITY STAT 02/28/2025 2:17 PM EDT TYPE AND SCREEN STAT 02/28/2025 2:17 PM EDT PROTHROMBIN TIME WITH INR STAT 02/28/2025 2:17 PM EDT COMPREHENSIVE METABOLIC PANEL STAT 02/28/2025 2:17 PM EDT CBC AND DIFFERENTIAL STAT 02/28/2025 2:17 PM EDT MR BRAIN WO AND W CONTRAST Routine 02/26/2025 10:37 AM EDT Glioblastoma multiforme of brain (CMS/HCC V24, CMS/HCC V28) CBC WITH AUTO DIFFERENTIAL Routine 02/04/2025 10:59 AM EDT Glioblastoma multiforme of brain (CMS/HCC V24, CMS/HCC V28) COMPREHENSIVE METABOLIC PANEL Routine 02/04/2025 10:59 AM EDT Glioblastoma multiforme of brain (CMS/HCC V24, CMS/HCC V28) CBC AND DIFFERENTIAL Routine 02/04/2025 10:59 AM EDT Glioblastoma multiforme of brain (CMS/HCC V24, CMS/HCC V28) from Last 3 Months Results * ECG-Annotated (04/03/2025) Only the most recent of2 resultswithin the time period is included. us Provider Onbase MD ECG ORDERABLES Final Result * (ABNORMAL) CBC auto differential (04/02/2025 5:56 AM EDT) Only the most recent of7 resultswithin the time period is included. WBC 7.5 4.8 - 10.8 K/mcL LAB HEMETOLOGY METHOD 04/02/2025 7:22 AM [facility] RBC 3.40(L) 3.80 - 4.80 M/mcL LAB HEMETOLOGY METHOD 04/02/2025 7:22 AM [facility] Hemoglobin 11.7 11.5 - 16.0 g/dL LAB HEMETOLOGY METHOD 04/02/2025 7:22 AM [facility] Hematocrit 33.9(L) 35.0 - 47.0 % LAB HEMETOLOGY METHOD 04/02/2025 7:22 AM [facility] MCV 99.1(H) 79.0 - 98.0 FL LAB HEMETOLOGY METHOD 04/02/2025 7:22 AM [facility] MCH 34.2(H) 27.0 - 32.0 pcg LAB HEMETOLOGY METHOD 04/02/2025 7:22 AM [facility] MCHC 34.5 32.0 - 37.0 g/dL LAB HEMETOLOGY METHOD 04/02/2025 7:22 AM [facility] RDW 15.0 11.0 - 15.0 % LAB HEMETOLOGY METHOD 04/02/2025 7:22 AM [facility] Platelets 62(L) 130 - 400 K/mcL LAB HEMETOLOGY METHOD 04/02/2025 7:22 AM [facility] Comment:previously verified by slide MPV 9.7 7.0 - 11.0 FL LAB HEMETOLOGY METHOD 04/02/2025 7:22 AM [facility] NRBC 0.0 <1.0 % LAB HEMETOLOGY METHOD 04/02/2025 7:22 AM [facility] NRBC Absolute 0.00 <0.10 K/mcL LAB HEMETOLOGY METHOD 04/02/2025 7:22 AM [facility] Neutrophils Relative 89.5 % LAB HEMETOLOGY METHOD 04/02/2025 7:22 AM [facility] Comment:This is an appended report. These results have been appended to a previously preliminary verified report. Lymphocytes Relative 4.8 % LAB HEMETOLOGY METHOD 04/02/2025 7:22 AM [facility] Comment:This is an appended report. These results have been appended to a previously preliminary verified report. Monocytes Relative 2.7 % LAB HEMETOLOGY METHOD 04/02/2025 7:22 AM [facility] Comment:This is an appended report. These results have been appended to a previously preliminary verified report. Eosinophils Relative 0.7 % LAB HEMETOLOGY METHOD 04/02/2025 7:22 AM [facility] Comment:This is an appended report. These results have been appended to a previously preliminary verified report. Basophils Relative 0.4 % LAB HEMETOLOGY METHOD 04/02/2025 7:22 AM [facility] Comment:This is an appended report. These results have been appended to a previously preliminary verified report. Immature Granulocytes Relative 1.9 % LAB HEMETOLOGY METHOD 04/02/2025 7:22 AM [facility] Comment:This is an appended report. These results have been appended to a previously preliminary verified report. Neutrophils Absolute 6.68 1.50 - 7.00 K/mcL LAB HEMETOLOGY METHOD 04/02/2025 7:22 AM EDT [facility] Comment:This is an appended report. These results have been appended to a previously preliminary verified report. Lymphocytes Absolute 0.36(L) 1.00 - 5.00 K/mcL LAB HEMETOLOGY METHOD 04/02/2025 7:22 AM EDT [facility] Comment:This is an appended report. These results have been appended to a previously preliminary verified report. Monocytes Absolute 0.20 0.20 - 1.00 K/mcL LAB HEMETOLOGY METHOD 04/02/2025 7:22 AM EDT [facility] Comment:This is an appended report. These results have been appended to a previously preliminary verified report. Eosinophils Absolute 0.05 0.00 - 0.50 K/[facility] LAB HEMETOLOGY METHOD 04/02/2025 7:22 AM EDT [facility] Comment:This is an appended report. These results have been appended to a previously preliminary verified report. Basophils Absolute 0.03 0.00 - 0.20 K/[facility] LAB HEMETOLOGY METHOD 04/02/2025 7:22 AM EDT [facility] Comment:This is an appended report. These results have been appended to a previously preliminary verified report. Immature Granulocytes Absolute 0.14(H) 0.00 - 0.03 K/[facility] LAB HEMETOLOGY METHOD 04/02/2025 7:22 AM EDT [facility] Comment:This is an appended report. These results have been appended to a previously preliminary verified report. Blood Venous blood specimen / Unknown Venipuncture / Unknown 04/02/2025 5:56 AM EDT 04/02/2025 6:03 AM EDT us Raymond Warner MD LAB BLOOD ORDERABLES Ciarra obdulio Result [facility] [address] [place] [address], [place] [phone] * Phosphorus (04/02/2025 5:56 AM EDT) [facility] Phosphorus 3.1 2.5 - 4.5 mg/dL LAB CHEMISTRY METHOD 04/02/2025 6:34 AM EDT [facility] Blood Venous blood specimen / Unknown Venipuncture / Unknown 04/02/2025 5:56 AM EDT 04/02/2025 6:03 AM EDT us Raymond Warner MD LAB BLOOD ORDERABLES Ciarra l Result [facility] [address] [place] [address], [place] [phone] * (ABNORMAL) Magnesium (04/02/2025 5:56 AM EDT) [facility] Magnesium 1.8(L) 1.9 - 2.6 mg/dL LAB CHEMISTRY METHOD 04/02/2025 6:34 AM EDT [facility] Blood Venous blood specimen / Unknown Venipuncture / Unknown 04/02/2025 5:56 AM EDT 04/02/2025 6:03 AM EDT us Raymond Warner MD LAB BLOOD ORDERABLES Ciarra l Result [facility] [address] [place] [address], [place] [phone] * (ABNORMAL) Basic metabolic panel (04/02/2025 5:56 AM EDT) Only the most recent of3 resultswithin the time period is included. [facility] Sodium 136 133 - 145 mmol/L LAB CHEMISTRY METHOD 04/02/2025 6:34 AM EDT [facility] Potassium 3.2(L) 3.5 - 5.5 mmol/L LAB CHEMISTRY METHOD 04/02/2025 6:34 AM [facility] Chloride 101 96 - 110 mmol/L LAB CHEMISTRY METHOD 04/02/2025 6:34 AM [facility] CO2 25 21 - 32 mmol/L LAB CHEMISTRY METHOD 04/02/2025 6:34 AM [facility] Anion Gap 10 3 - 11 LAB CHEMISTRY METHOD 04/02/2025 6:34 AM [facility] Glucose 186(H) 70 - 100 mg/dL LAB CHEMISTRY METHOD 04/02/2025 6:34 AM [facility] BUN 32(H) 5 - 25 mg/dL LAB CHEMISTRY METHOD 04/02/2025 6:34 AM [facility] Creatinine 1.07 0.50 - 1.10 mg/dL LAB CHEMISTRY METHOD 04/02/2025 6:34 AM [facility] eGFR 56(L) >=60 mL/min/1. 73m2 LAB CHEMISTRY METHOD 04/02/2025 6:34 AM [facility] Comment:Calculation based on the Chronic Kidney Disease Epidemiology Collaboration (CKD-EPI) equation refit without adjustment for race. BUN/Creatinine Ratio 29.9 LAB CHEMISTRY METHOD 04/02/2025 6:34 AM [facility] Calcium 8.0(L) 8.5 - 10.5 mg/dL LAB CHEMISTRY METHOD 04/02/2025 6:34 AM [facility] Blood Venous blood specimen / Unknown Venipuncture / Unknown 04/02/2025 5:56 AM EDT 04/02/2025 6:03 AM EDT us Raymond Warner MD LAB BLOOD ORDERABLES Ciarra l Result [facility] [address] [place] [address], * Lactate (04/02/2025 5:03 AM EDT) Lactate 1.4 0.4 - 2.0 mmol/L LAB CHEMISTRY METHOD 04/02/2025 5:43 AM EDT [facility] Blood Venous blood specimen / Unknown Venipuncture / Unknown 04/02/2025 5:03 AM EDT 04/02/2025 5:04 AM EDT us Moni MARK LAB BLOOD ORDERABLES Fi nal Result [facility] [address] [place] [address], [place] [phone] * XR Chest 1 View (04/02/2025 4:18 AM EDT) Anatomical Region Laterality Modality Body Radiographic Katherine ging 04/02/2025 9:24 AM EDT Impressions 04/02/2025 9:36 AM EDT FINDINGS/IMPRESSION: Low lung volumes with right elevated diaphragm. Linear atelectasis at the lung bases. No pleural effusion or pneumothorax. Cardiac silhouette is stably enlarged. Degenerative changes seen throughout the bones. Right breast and cholecystectomy clips. -------- FINAL REPORT -------- Dictated By: BROOKS BUI Dictated Date: 04/02/2025 09:24 ET Assigned Physician: BROOKS BUI Reviewed and Electronically Signed By: BROOKS BUI Signed Date: 04/02/2025 09:36 ET Workstation ID: [id number] Transcribed By: Self Edit Transcribed Date: 04/02/2025 09:24 ET Narrative 04/02/2025 9:36 AM EDT XR CHEST 1 VIEW INDICATION: Hypoxia TECHNIQUE: XR CHEST 1 VIEW COMPARISON: 10/03/2024 Procedure Note Brooks Bui MD - 04/02/2025 XR CHEST 1 VIEW INDICATION: Hypoxia TECHNIQUE: XR CHEST 1 VIEW COMPARISON: 10/03/2024 IMPRESSION: FINDINGS/IMPRESSION: Low lung volumes with right elevated diaphragm.Linear atelectasis at the lung bases. No pleural effusion orpneumothorax. Cardiac silhouette is stably enlarged. Degenerativechanges seen throughout the bones. Right breast and cholecystectomyclips. -------- FINAL REPORT -------- Dictated By: BROOKS BUI Dictated Date: 04/02/2025 09:24 ET Assigned Physician: BROOKS BUI Reviewed and Electronically Signed By: BROOKS BUI Signed Date: 04/02/2025 09:36 ET Workstation ID: [id number] Transcribed By: Self Edit Transcribed Date: 04/02/2025 09:24 ET Moni MARK IMG XR PROCEDURES Final Result * (ABNORMAL) Prothrombin time with INR (04/02/2025 2:35 AM EDT) Only the most recent of3 resultswithin the time period is included. Pathologist [facility] Protime 18.2(H) 10.6 - 13.9 sec LAB COAGULATION METHOD 04/02/2025 3:05 AM EDT [facility] INR 1.5 LAB COAGULATION METHOD 04/02/2025 3:05 AM EDT [facility] Blood Venous blood specimen / Unknown Venipuncture / Unknown 04/02/2025 2:35 AM EDT 04/02/2025 2:53 AM EDT Raymond Warner MD LAB BLOOD ORDERABLES Ciarra mak Result [facility] [address] [place] [address], * (ABNORMAL) Blood culture pathogens molecular study (04/02/2025 2:21 AM EDT) Only the most recent of2 resultswithin the time period is included. Pathologist [facility] Streptococcus species Detected (A) Not Detected LAB MICROBIOLOGY METHOD 04/03/2025 6:56 AM EDT [facility] Blood Venous blood specimen / Unknown Venipuncture / Unknown 04/02/2025 2:21 AM EDT 04/02/2025 2:28 AM EDT Marcel MARK LAB MICROBIOLOGY - GENERAL ORDER SAHIL Final Result Performing Organization Address [facility] Co de Phone Number [facility] [address] [place] [address], [place] [phone] * (ABNORMAL) Blood Culture, Peripheral #1 (04/02/2025 2:21 AM EDT) Only the most recent of2 resultswithin the time period is included. [facility] Signature Culture, Blood Streptococcus constellatus(AA) 04/07/2025 1:51 PM EDT [facility] Comment: Susceptibility testing not routinely performed. If further therapeutic information is required, please consult an infectious disease specialist. The organism value for this result has been updated. These results have been appended to the previously preliminary verified report. Edited result: Previously reported as Gram Positive Cocci on 04/06/2025 at 0756 EDT. Gram Stain Result Aerobic and Anaerobic bottles Gram positive cocci in chains and clusters(AA) 04/07/2025 1:51 PM EDT [facility] Comment: This is an appended report. These results have been appended to a previously preliminary verified report. Corrected result: Previously reported as Anaerobic bottle Gram positive cocci in chains and clusters on 04/03/2025 at 0256 EDT. Blood Venous blood specimen / Unknown Venipuncture / Unknown 04/02/2025 2:21 AM EDT 04/02/2025 2:28 AM EDT Marcel MARK LAB MICROBIOLOGY - GENERAL ORDER SAHIL Final Result Performing Organization Address [facility]/ZIP Co de Phone Number [facility] [address] [place] [address], [place] [phone] * (ABNORMAL) Lactate, with reflex (04/02/2025 12:58 AM EDT) Only the most recent of2 resultswithin the time period is included. LACTIC ACID 2.5(H) 0.4 - 2.0 mmol/L LAB CHEMISTRY METHOD 04/02/2025 1:34 AM EDT [facility] Blood Venous blood specimen / Unknown Venipuncture / Unknown 04/02/2025 12:58 AM EDT 04/02/2025 1:10 AM EDT us Marcel MARK LAB BLOOD ORDERABLES Final Resul t [facility] [address] [place] [address], * CT Angio Head/Neck wo and/or w Contrast (04/01/2025 11:47 PM EDT) Anatomical Region Laterality Modality Head and Neck Computed Tomogra phy 04/02/2025 1:22 AM EDT Addenda Addendum by Yoan Fox MD on 04/02/2025 1:27 AM EDT ADDENDUM: This report was discussed with DEEDEE Lomax on Apr 02, 2025 01:25:00 EDT. This document has been electronically signed by: Laura Dupree on 04/02/2025 01:27:48 Impressions 04/02/2025 1:22 AM EDT 1. 2 cm periosteal abscess along the inner surface of the mandible with extensive gas extending inferior and lateral in the left submandibular space and left neck. Findings raise concern for gas-forming organism. 2. Slight increase in vasogenic edema in the left temporal lobe, in the area of the known brain tumor. Brain tumors not well visualized on this study, better visualized on prior MRI with contrast 3. No large vessel occlusion. 4. No hemodynamically significant stenosis of the carotid arteries. This document has been electronically signed by: Yoan Fox MD on 04/02/2025 01:22:55 Narrative 04/02/2025 1:22 AM EDT INDICATION: Left Neck/Face Swelling; Hx Glioblastoma CT Head without contrast. CT angiography head and neck with contrast. 3D Postprocessing. Comparison: CT - CT HEAD WO CONTRAST - 12/17/24 02:52 EST MR/OT - MR BRAIN WO AND W CONTRAST - 10/21/24 17:12 EST Findings: HEAD CT: There is vasogenic edema throughout much of the left temporal lobe, increased in comparison to previous head CT. Partially cystic lesion within the medial left temporal lobe again seen. No significant enhancement seen on arterial phase imaging. Mild cerebral atrophy. Mild low attenuation in the periventricular and subcortical white matter consistent with chronic small-vessel ischemic gliosis. The visualized paranasal sinuses and mastoid air cells are normal. The orbits are unremarkable. There has been a previous tamara hole in the left temporal skull at the site of previous biopsy. HEAD AND NECK CTA: Aortic arch and cervical great vessels are patent. Intracranial arteries are patent. No aneurysm, dissection, or occlusion. No abnormal intracranial enhancement. There is extensive gas within the anterior left neck in the subcutaneous tissues both above and below the platysma, adjacent to the left submandibular gland and extending into the left floor of the mouth peripherally. There is a fluid and gas collection along the inner table of the posterior mandible with rim enhancement concerning for a abscess measuring 2.0 x 1.0 cm, series 6, image 298. There is slight periapical lucency as well as a dental annamarie in the adjacent posterior left mandibular molar. Gas does not extend into the carotid space or parapharyngeal space. Lung apices clear. No skull fracture or destructive lytic skull lesions. Procedure Note Yoan Fox MD - 04/02/2025 INDICATION: Left Neck/Face Swelling; Hx Glioblastoma CT Head without contrast. CT angiography head and neck with contrast. 3D Postprocessing. Comparison: CT - CT HEAD WO CONTRAST - 12/17/24 02:52 EST MR/OT - MR BRAIN WO AND W CONTRAST - 10/21/24 17:12 EST Findings: HEAD CT: There is vasogenic edema throughout much of the left temporal lobe, increased in comparison to previous head CT. Partially cystic lesion within the medial left temporal lobe again seen. No significant enhancement seen on arterial phase imaging. Mild cerebral atrophy. Mild low attenuation in the periventricular and subcortical white matter consistent with chronic small-vessel ischemic gliosis. The visualized paranasal sinuses and mastoid air cells are normal. The orbits are unremarkable. There has been a previous tamara hole in the left temporal skull at thesite of previous biopsy. HEAD AND NECK CTA: Aortic arch and cervical great vessels are patent. Intracranial arteries are patent. No aneurysm, dissection, or occlusion. No abnormal intracranial enhancement. There is extensive gas within the anterior left neck in the subcutaneous tissues both above and below the platysma, adjacent to the left submandibular gland and extending into the left floor of the mouth peripherally. There is a fluid and gas collection along the inner tableof the posterior mandible with rim enhancement concerning for a abscess measuring 2.0 x 1.0 cm, series 6, image 298. There is slight periapical lucency as well as a dental annamarie in the adjacent posterior left mandibular molar. Gas does not extend into the carotid space or parapharyngeal space. Lung apices clear. No skull fracture or destructive lytic skull lesions. IMPRESSION: 1. 2 cm periosteal abscess along the inner surface of the mandible with extensive gas extending inferior and lateral in the left submandibular space and left neck. Findings raise concern for gas-forming organism. 2. Slight increase in vasogenic edema in the left temporal lobe, in the area of the known brain tumor. Brain tumors not well visualized on this study, better visualized on prior MRI with contrast 3. No large vessel occlusion. 4. No hemodynamically significant stenosis of the carotid arteries. This document has been electronically signed by: Yoan Fox MD on 04/02/2025 01:22:55 Marcel MARK [facility] CT PROCEDURES Edited Result - Final * (ABNORMAL) Manual differential (04/01/2025 10:37 PM EDT) Neutrophils % 42.0 % LAB HEMETOLOGY METHOD 5 12:32 AM EDT [facility] Bands % 24.0 % LAB HEMETOLOGY METHOD 5 12:32 AM EDT [facility] Lymphocytes % 11.0 % LAB HEMETOLOGY METHOD 5 12:32 AM EDT [facility] Reactive Lymphocyte 1.00 % LAB HEMETOLOGY METHOD 5 12:32 AM [facility] Monocytes % 3.0 % LAB HEMETOLOGY METHOD 5 12:32 AM [facility] Eosinophils % 1.0 % LAB HEMETOLOGY METHOD 5 12:32 AM [facility] Basophils % 0.0 % LAB HEMETOLOGY METHOD 5 12:32 AM [facility] Metamyelocytes % 12.0(H) % LAB HEMETOLOGY METHOD 5 12:32 AM [facility] Myelocytes % 4.0(H) % LAB HEMETOLOGY METHOD 5 12:32 AM [facility] Promyelocytes % 1.0(H) % LAB HEMETOLOGY METHOD 5 12:32 AM [facility] Other Cells % By Manual Count 1.0(H) <=0.0 % LAB HEMETOLOGY METHOD 5 12:32 AM [facility] Neutrophils Absolute Manual 3.07 1.50 - 7.00 K/mcL LAB HEMETOLOGY METHOD 5 12:32 AM [facility] Bands Absolute Manual 1.75(H) 0.00 - 0.00 K/mcL LAB HEMETOLOGY METHOD 5 12:32 AM [facility] Lymphocytes Absolute 0.80(L) 1.00 - 5.00 K/mcL LAB HEMETOLOGY METHOD 5 12:32 AM [facility] Reactive Lymph Abs Manual 0.07(H) 0.00 - 0.00 lym LAB HEMETOLOGY METHOD 5 12:32 AM [facility] Monocytes Absolute Manual 0.22 0.20 - 1.00 K/mcL LAB HEMETOLOGY METHOD 5 12:32 AM EDT [facility] Eosinophils Absolute Manual 0.07 0.00 - 0.50 K/mcL LAB HEMETOLOGY METHOD 5 12:32 AM EDT [facility] Basophils Absolute Manual 0.00 0.00 - 0.20 K/mcL LAB HEMETOLOGY METHOD 5 12:32 AM EDT [facility] Metamyelocytes Absolute Manual 0.88(H) 0.00 - 0.00 K/mcL LAB HEMETOLOGY METHOD 5 12:32 AM EDT [facility] Myelocytes Absolute Manual 0.29(H) 0.00 - 0.00 K/mcL LAB HEMETOLOGY METHOD 5 12:32 AM EDT [facility] Promyelocytes Absolute Manual 0.07(H) 0.00 - 0.00 K/mcL LAB HEMETOLOGY METHOD 5 12:32 AM EDT [facility] Other Cells ABS 0.07(H) 0.00 - 0.00 K/mcL LAB HEMETOLOGY METHOD 5 12:32 AM EDT [facility] Rbc Morphology Consistent with indices Consistent with indices, Normal for LAB HEMETOLOGY METHOD 5 12:32 AM EDT [facility] Platelet Morphology - WAM Normal Normal LAB HEMETOLOGY METHOD 5 12:32 AM T [facility] Blood Venous blood specimen / Unknown Venipuncture / Unknown 04/01/2025 10:37 PM EDT 04/01/2025 10:48 PM EDT us Marcel MARK LAB BLOOD ORDERABLES Final Resul t [facility] [address] [place] [address], * APTT (04/01/2025 10:37 PM EDT) Pathologist [facility] aPTT 30.0 24.1 - 39.3 sec LAB COAGULATION METHOD 04/01/2025 11:01 PM EDT [facility] Blood Venous blood specimen / Unknown Venipuncture / Unknown 04/01/2025 10:37 PM EDT 04/01/2025 10:48 PM EDT Marcel MARK LAB BLOOD ORDERABLES Final Resul t [facility] [address] [place] [address], * (ABNORMAL) Comprehensive Metabolic Panel (CMP) (04/01/2025 10:37 PM EDT) Only the most recent of4 resultswithin the time period is included. [facility] Sodium 137 133 - 145 mmol/L LAB CHEMISTRY METHOD 04/01/2025 11:25 PM [facility] Potassium 3.8 3.5 - 5.5 mmol/L LAB CHEMISTRY METHOD 04/01/2025 11:25 PM [facility] Chloride 97 96 - 110 mmol/L LAB CHEMISTRY METHOD 04/01/2025 11:25 PM [facility] CO2 29 21 - 32 mmol/L LAB CHEMISTRY METHOD 04/01/2025 11:25 PM [facility] Anion Gap 11 3 - 11 LAB CHEMISTRY METHOD 04/01/2025 11:25 PM [facility] Glucose 239(H) 70 - 100 mg/dL LAB CHEMISTRY METHOD 04/01/2025 11:25 PM [facility] BUN 43(H) 5 - 25 mg/dL LAB CHEMISTRY METHOD 04/01/2025 11:25 PM [facility] Creatinine 1.87(H) 0.50 - 1.10 mg/dL LAB CHEMISTRY METHOD 04/01/2025 11:25 PM [facility] eGFR 29(L) >=60 mL/min/1. 73m2 LAB CHEMISTRY METHOD 04/01/2025 11:25 PM [facility] Comment:Calculation based on the Chronic Kidney Disease Epidemiology Collaboration (CKD-EPI) equation refit without adjustment for race. BUN/Creatinine Ratio 23.0 LAB CHEMISTRY METHOD 04/01/2025 11:25 PM T [facility] Calcium 8.4(L) 8.5 - 10.5 mg/dL LAB CHEMISTRY METHOD 04/01/2025 11:25 PM [facility] AST (SGOT) 45(H) 10 - 42 unit/L LAB CHEMISTRY METHOD 04/01/2025 11:25 PM [facility] ALT (SGPT) 63(H) 10 - 60 unit/L LAB CHEMISTRY METHOD 04/01/2025 11:25 PM [facility] Alkaline Phosphatase 76 42 - 121 unit/L LAB CHEMISTRY METHOD 04/01/2025 11:25 PM [facility] Total Protein 5.7(L) 6.0 - 8.0 g/dL LAB CHEMISTRY METHOD 04/01/2025 11:25 PM [facility] Albumin 2.2(L) 3.2 - 5.0 g/dL LAB CHEMISTRY METHOD 04/01/2025 11:25 PM [facility] Total Bilirubin 1.0 0.0 - 1.4 mg/dL LAB CHEMISTRY METHOD 04/01/2025 11:25 PM [facility] Blood Venous blood specimen / Unknown Venipuncture / Unknown 04/01/2025 10:37 PM EDT 04/01/2025 10:48 PM EDT us Marcel MARK LAB BLOOD ORDERABLES Final Resul t [facility] [address] [place] [address], [place] [phone] * ECG 12 lead (04/01/2025 10:25 PM EDT) Only the most recent of2 resultswithin the time period is included. Ventricular Rate ECG 105 BPM GEMUSE Atrial Rate 105 BPM GEMUSE P-R Interval 130 ms GEMUSE QRS Duration 82 ms GEMUSE Q-T Interval 326 ms GEMUSE QTc 430 ms GEMUSE P Wave [place] 1 degrees GEMUSE R [place] -42 degrees GEMUSE T [place] 34 degrees GEMUSE ECG Interpretation Sinus tachycardia Left axis deviation Minimal voltage criteria for LVH, may be normal variant ( Avenel product ) Anterolateral infarct (cited on or before 28-FEB-2025) Abnormal ECG When compared with ECG of 28-FEB-2025 14:46, No significant change was found Confirmed by ESTER RAMOS ([id number]) on 04/02/2025 5:50:39 PM GEMUSE 04/01/2025 10:2 5 PM EDT 04/02/2025 5:50 PM EDT Arthur Lal MD ECG ORDERABLES Final Resul t GEMUSE * Protein, urine, random (03/26/2025 9:05 AM EDT) Only the most recent of2 resultswithin the time period is included. Pathologist [facility] Protein, Urine 19 mg/dL LAB CHEMISTRY METHOD 03/26/2025 9:50 AM EDT [facility] Urine Urine specimen from urethra / Unknown Non-blood Collection / Unknown 03/26/2025 9:05 AM EDT 03/26/2025 9:22 AM EDT Tara Bansal DO LAB URINE ORDERABLES Final Result Performing Organization Address City/[facility]/ZIP Co de Phone Number [facility] [address] [place] [address], [place] [phone] * SST tube (03/04/2025 6:20 AM EDT) Pathologist [facility] Extra Tube Hold for add-ons. 03/04/2025 9:01 AM EDT [facility] Comment:Auto resulted. Blood Venous blood specimen / Unknown 03/04/2025 6:20 AM EDT 03/04/2025 7:13 AM EDT us Harmeet Gonsalez MD LAB BLOOD ORDERABLES Final Resul t [facility] [address] [place] [address], * (ABNORMAL) Complete blood count (03/01/2025 6:02 AM EDT) [facility] WBC 5.2 4.8 - 10.8 K/mcL LAB HEMETOLOGY METHOD 03/01/2025 6:57 AM EDT [facility] RBC 3.80 3.80 - 4.80 M/[facility] LAB HEMETOLOGY METHOD 03/01/2025 6:57 AM [facility] Hemoglobin 13.2 11.5 - 16.0 g/dL LAB HEMETOLOGY METHOD 03/01[facility]2025 6[facility] Hematocrit 37.5 35.0 - 47.0 % LAB HEMETOLOGY METHOD 03/01/2025 6:57 AM EDT [facility] MCV 98.2(H) 79.0 - 98.0 FL LAB HEMETOLOGY METHOD 03/01/2025 6:57 [facility] MCH 34.6(H) 27.0 - 32.0 pcg LAB HEMETOLOGY METHOD 03/01/2025 6:57 [facility] MCHC 35.2 32.0 - 37.0 g/dL LAB HEMETOLOGY METHOD 03/01/2025 6:57 [facility] RDW 13.1 11.0 - 15.0 % LAB HEMETOLOGY METHOD 03/01/2025 6:57 AM EDT [facility] Platelets 187 130 - 400 K/mcL LAB HEMETOLOGY METHOD 03/01/2025 6:57 AM EDT [facility] MPV 8.3 7.0 - 11.0 FL LAB HEMETOLOGY METHOD 03/01/2025 6:57 AM EDT [facility] NRBC 0.0 <1.0 % LAB HEMETOLOGY METHOD 03/01/2025 6:57 AM EDT [facility] NRBC Absolute 0.00 <0.10 K/mcL LAB HEMETOLOGY METHOD 03/01/2025 6:57 AM EDT [facility] Blood Venous blood specimen / Unknown 03/01/2025 6:02 AM EDT 03/01/2025 6:19 AM EDT us Kellie Nair MD LAB BLOOD ORDERABLES Final Res ult [facility] [address] [place] [address], [place] [phone] * POCT Glucose, blood (02/28/2025 5:12 PM EDT) [facility] Signature Glucose POCT 84 70 - 100 mg/dL 02/28/2025 5:13 PM EDT [facility] Blood Capillary blood specimen / Unknown 02/28/2025 5:12 PM EDT 02/28/2025 5:14 PM EDT Kellie Niar MD LAB POINT OF CARE TE ST DOCKED DEVICE UNSOLICITED RESULTS Final Result [facility] [address] [place], [place] [address] [phone] * CT Head wo Contrast (02/28/2025 3:11 PM EDT) Anatomical Region Laterality Modality Head and Neck Computed Tomogra phy 02/28/2025 3:23 PM EDT Impressions 02/28/2025 3:33 PM EDT There is increasing abnormality in the left temporal region related to a known glioblastoma when compared to previous CT 12/17/24. The patient has undergone interval MRI. No new intracranial hemorrhage. The patient is obliquely positioned within the scanner but I suspect at least some mild midline shift. The basilar cisterns are well visualized. No evidence of transtentorial or suboccipital herniation. -------- FINAL REPORT -------- Dictated By: Mike Hurt Dictated Date: 02/28/2025 15:23 ET Assigned Physician: Mike Hurt Reviewed and Electronically Signed By: Mike Hurt Signed Date: 02/28/2025 15:33 ET Workstation ID: [id number] Transcribed By: Self Edit Transcribed Date: 02/28/2025 15:23 ET Narrative 02/28/2025 3:33 PM EDT EXAMINATION: CT HEAD WITHOUT CONTRAST CLINICAL INFORMATION: Mental status change. Known glioblastoma. COMPARISON: Portions of a previous head CT 12/17/24 TECHNIQUE: Multidetector CT. Examination of the head. Examination of the head without IV contrast. Reformatting in the coronal and sagittal planes. DLP: 809 mGy-cm Dose optimization was performed including the use of low-dose iterative reconstruction technique with automatic exposure control based on patient size. Type of contrast: None Volume of IV contrast: None Volume of contrast discarded: 0 mL FINDINGS: Intracranial hemorrhage: No evidence of recent intracranial hemorrhage. Ventricles, cisterns and sulci: There is no evidence of downward displacement of the cerebellar tonsils. The basilar cisterns are visualized. The patient is obliquely positioned within the scanner making assessment for mild midline shift difficult. I suspect unchanged minimal shift toward the right. There is no change in the size of the frontal horns and body of the lateral ventricles. No interval change in the caliber of the third ventricle. There is mass effect upon the temporal horn of the left lateral ventricle. There is effacement of the sulci involving the left temporal region. Extra-axial mass or collections: No extra-axial mass or collection Intra-axial mass: There is low attenuation in the left temporal region likely related to the known glioblastoma. Acute infarct: No acute territorial infarct demonstrated. White matter disease: There is extensive white matter low-attenuation in the left temporal and temporoparietal regions. There is some deep white matter low- attenuation in the right frontal region. The low attenuation in the left temporal region is increased when compared to CT 12/17/24. Jang-white interface: No disruption of the jang-white interface elsewhere. Paranasal sinuses: The visualized paranasal sinuses are well pneumatized and aerated Osseous/Scalp: There is a tamara hole in the left temporal region. Procedure Note Mike Hurt MD - 02/28/2025 EXAMINATION: CT HEAD WITHOUT CONTRAST CLINICAL INFORMATION: Mental status change. Known glioblastoma. COMPARISON: Portions of a previous head CT 12/17/24 TECHNIQUE: Multidetector CT. Examination of the head. Examination of the head without IV contrast. Reformatting in the coronal and sagittal planes. DLP: 809 mGy-cm Dose optimization was performed including the use of low-dose iterativereconstruction technique with automatic exposure control based on patientsize. Type of contrast: None Volume of IV contrast: None Volume of contrast discarded: 0 mL FINDINGS: Intracranial hemorrhage: No evidence of recent intracranial hemorrhage. Ventricles, cisterns and sulci: There is no evidence of downwarddisplacement of the cerebellar tonsils. The basilar cisterns arevisualized. The patient is obliquely positioned within the scanner makingassessment for mild midline shift difficult. I suspect unchanged minimalshift toward the right. There is no change in the size of the frontalhorns and body of the lateral ventricles. No interval change in thecaliber of the third ventricle. There is mass effect upon the temporal horn of the left lateralventricle. There is effacement of the sulci involving the left temporal region. Extra-axial mass or collections: No extra-axial mass or collection Intra-axial mass: There is low attenuation in the left temporal regionlikely related to the known glioblastoma. Acute infarct: No acute territorial infarct demonstrated. White matter disease: There is extensive white matter low-attenuation inthe left temporal and temporoparietal regions. There is some deep whitematter low- attenuation in the right frontal region. The low attenuation in the left temporal region is increased when comparedto CT 12/17/24. Jang-white interface: No disruption of the jang-white interface elsewhere. Paranasal sinuses: The visualized paranasal sinuses are well pneumatizedand aerated Osseous/Scalp: There is a tamara hole in the left temporal region. IMPRESSION: There is increasing abnormality in the left temporal region related to aknown glioblastoma when compared to previous CT 12/17/24. The patient has undergone interval MRI. No new intracranial hemorrhage. The patient is obliquely positioned within the scanner but I suspect atleast some mild midline shift. The basilar cisterns are well visualized.No evidence of transtentorial or suboccipital herniation. -------- FINAL REPORT -------- Dictated By: Mike Hurt Dictated Date: 02/28/2025 15:23 ET Assigned Physician: Mike Hurt Reviewed and Electronically Signed By: Mike Hurt Signed Date: 02/28/2025 15:33 ET Workstation ID: [id number] Transcribed By: Self Edit Transcribed Date: 02/28/2025 15:23 ET us Anders Friedman MD IM CT PROCEDURES Final Result * Troponin I high sensitivity (02/28/2025 2:17 PM EDT) High Sensitivity Troponin I 6 <=54 ng/L LAB CHEMISTRY METHOD 02/28/2025 3:06 PM EDT [facility] Blood Venous blood specimen / Unknown Venipuncture / Unknown 02/28/2025 2:17 PM EDT 02/28/2025 2:37 PM EDT Narrative [facility] - 02/28/2025 3:06 PM EDT High levels of biotin in samples may falsely decrease hsTroponin values. Use caution when interpreting hsTroponin results in patients taking biotin who exhibit renal impairment (eGFR <60) or in patients taking more than 20 mg/day of biotin. us Anders Friedman MD LAB BLOOD ORDERABLES Final Res ult Performing Organization Address [facility]/ZIP Co de Phone Number [facility] [address] [place] [address], [place] [phone] * Type and screen (02/28/2025 2:17 PM EDT) ABO Group A 02/28/2025 3:29 PM EDT [facility] Rh Type Positive 02/28/2025 3:29 PM EDT [facility] Antibody Screen Negative 02/28/2025 3:29 PM EDT [facility] Blood Venous blood specimen / Unknown Venipuncture / Unknown 02/28/2025 2:17 PM EDT 02/28/2025 2:37 PM EDT us Anders Friedman MD LAB BLOOD BANK TEST ORDERABLES Final Result Performing Organization Address [facility] Co de Phone Number [facility] [address] [place] [address], [place] [phone] * MR Brain wo and w Contrast (02/26/2025 10:37 AM EDT) Anatomical Region Laterality Modality Head and Neck Magnetic Resonan ce 02/26/2025 10:5 3 AM EDT Impressions 02/26/2025 11:07 AM EDT Continued increased size of satellite mass in the anterolateral left temporal lobe with increased surrounding edema and increased effacement of the left temporal horn lateral ventricle. Findings consistent with tumor progression. -------- FINAL REPORT -------- Dictated By: BROOKS BUI Dictated Date: 02/26/2025 10:53 ET Assigned Physician: BROOKS BUI Reviewed and Electronically Signed By: BROOKS BUI Signed Date: 02/26/2025 11:07 ET Workstation ID: [id number] Transcribed By: Self Edit Transcribed Date: 02/26/2025 10:53 ET Narrative 02/26/2025 11:07 AM EDT PROCEDURE: Brain MRI INDICATION: Glioblastoma TECHNIQUE: Multiplanar, multisequence MRI of the brain without and with contrast. 15 mL Dotarem injected intravenously from a 15 mL vial with the remainder discarded COMPARISON: 10/21/2024 FINDINGS: No acute infarct or intracranial hemorrhage. Dominant enhancing mass in the left mesial temporal lobe measures 28 x 17 mm as compared to 28 x 17 mm prior. Enhancement at the ependymal surface of the left temporal horn lateral ventricle is similar compared to prior. Satellite mass in the more anterior and lateral left temporal lobe is increased in size measuring 15 x 19 mm as compared to 6 x 11 mm on the prior exam when remeasured in a similar plane. T2 hyperintensity in the left temporal lobe around the dominant mass is similar compared to prior. T2 hyperintensity around a satellite mass is increased compared to prior. Mass effect with effacement of the left temporal horn lateral ventricle is increased. No hydrocephalus. No new sites of abnormal intracranial enhancement. Mild chronic small vessel ischemic change throughout the supratentorial white matter, similar compared to prior. Sella and foramen magnum are within normal limits. No abnormal intracranial susceptibility artifact. Major intracranial arterial flow voids are preserved. Major dural venous sinuses enhance normally with contrast. Sinuses and mastoid air cells are clear. Orbits and extra cranial soft tissues are stable compared to prior. Small left temporal craniotomy is unchanged. Procedure Note Brooks Bui MD - 02/26/2025 PROCEDURE: Brain MRI INDICATION: Glioblastoma TECHNIQUE: Multiplanar, multisequence MRI of the brain without and withcontrast. 15 mL Dotarem injected intravenously from a 15 mL vial with theremainder discarded COMPARISON: 10/21/2024 FINDINGS: No acute infarct or intracranial hemorrhage. Dominant enhancing mass in the left mesial temporal lobe measures 28 x 17mm as compared to 28 x 17 mm prior. Enhancement at the ependymal surfaceof the left temporal horn lateral ventricle is similar compared to prior.Satellite mass in the more anterior and lateral left temporal lobe isincreased in size measuring 15 x 19 mm as compared to 6 x 11 mm on theprior exam when remeasured in a similar plane. T2 hyperintensity in theleft temporal lobe around the dominant mass is similar compared to prior.T2 hyperintensity around a satellite mass is increased compared toprior. Mass effect with effacement of the left temporal horn lateral ventricle isincreased. No hydrocephalus. No new sites of abnormal intracranial enhancement. Mild chronic smallvessel ischemic change throughout the supratentorial white matter, similarcompared to prior. Sella and foramen magnum are within normal limits. No abnormalintracranial susceptibility artifact. Major intracranial arterial flow voids are preserved. Major dural venoussinuses enhance normally with contrast. Sinuses and mastoid air cells are clear. Orbits and extra cranial soft tissues are stable compared to prior. Smallleft temporal craniotomy is unchanged. IMPRESSION: Continued increased size of satellite mass in the anterolateral lefttemporal lobe with increased surrounding edema and increased effacement ofthe left temporal horn lateral ventricle. Findings consistent with tumorprogression. 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 Do not modify or discontinue any currently active code status orders. * Full Code - Default Date Activated Date Inactivated Comments 04/02/2025 2:29 AM 04/02/2025 3:42 AM This is orde r is used when code status has not been discussed with the patient, or code status is otherwise unknown/unconfirmed To update the patient's code status, place a code status order. Do not modify or discontinue any currently active code status orders. * Full Code - Default Date Activated Date Inactivated Comments 02/28/2025 4:53 PM 03/04/2025 2:33 PM This is orde r is used when code status has not been discussed with the patient, or code status is otherwise unknown/unconfirmed To update the patient's code status, place a code status order. Do not modify or discontinue any currently active code status orders. * Full Code - Default Date Activated Date Inactivated Comments 12/17/2024 6:39 AM 12/18/2024 4:37 PM This is order is used when code status has not been discussed with the patient, or code status is otherwise unknown/unconfirmed To update the patient's code status, place a code status order. Do not modify or discontinue any currently active code status orders. * Full Code - Default Date Activated Date Inactivated Comments 09/29/2024 1:32 PM 10/05/2024 4:09 PM This is or frandy is used when code status has not been discussed with the patient, or code status is otherwise unknown/unconfirmed To update the patient's code status, place a code status order. Do not modify or discontinue any currently active code status orders. Healthcare Agents on File Name Relationship Healthcare Agent Relationshi p Communication Abhishek Towers Son Health Care Agent Rita Rosas Daughter First Alternate Health Care Agent Care Teams Data Entry Specialist Relationship Specialty Start Date End Date Divya Archer FNP [address] [place] [address] [place] [address] PCP - General Nurse Practitioner 10/13/24
--- OUTSIDE RECORDS SUMMARY | 2025-04-24 10:32 | XMS_ITS | Data Portability ---
Author Organization - [facility], Main Office Address [address] [facility] [address] [place] [address] Care Team Providers Care Wafer Fab Technician Name Role Phone SARAI OTTO Primary Care Provider Unavailabl e SARAI OTTO Referring Provider Unavailable Assessment Encounter Date Assessment Date Assessment LastModified by Organization Details LastModified Time 12/14/2020 12/14/2020 Diagnostic Studies and Imaging: Awaiting MRI of the lumbar spine results, not on CRISP. Lab Studies/Narcotic Management: The most recent urine drug screen was consistent for prescribed medications. The patient appears functional with the opioid analgesic effect without evidence of addiction abuse or diversion. The patient was selected at random to undergo a urine drug screen at today's visit. We will continuously work with the patient to find the lowest effective dose. [facility] [place] Prescription drug monitoring program was updated and reviewed at today's office visit. It will be scanned into the medical record for documentation. Assessment: See Problem List Outlined Below: 1) Lumbar post-laminectomy syndrome 2) Post (B) mastectomy neuralgia 3) Lumbar radiculopathy 4) Right hip arthritis pain PLAN: -Physical therapy: The patient will continue their home exercise program as tolerated. -Interventional treatment: Consider (B) SIJ injection along with (R) gluteus medius injection; patient is hesitant. -Adjuvant analgesics: Continue Lyrica 50 mg Topamax 25 mg Consider MMC -Opiate management: Refill x 4 week. Xtampza 36 mg BID #60 Oxycodone 15 mg decrease to daily # 30, four week supply. RF Buproprion for when due. - Lifestyle Changes: Recommend regular exercise, stretching, core strengthening and Mediterranean-st yle diet. -MRI of the right hip ordered. Has not completed as of yet. - Follow up: The patient will follow up as directed for reassessment and medication management dscharch Not available 12/14/2020 12:58:31 02/02/2021 02/02/2021 Diagnostic Studies and Imaging: Awaiting MRI of the lumbar spine results, not on CRISP. Lab Studies/Narcotic Management: The most recent urine drug screen was consistent for prescribed medications. The patient appears functional with the opioid analgesic effect without evidence of addiction abuse or diversion. The patient was selected at random to undergo a urine drug screen at today's visit. We will continuously work with the patient to find the lowest effective dose. [facility] [place] Prescription drug monitoring program was updated and reviewed at today's office visit. It will be scanned into the medical record for documentation. Assessment: See Problem List Outlined Below: 1) Lumbar post-laminectomy syndrome 2) Post (B) mastectomy neuralgia 3) Lumbar radiculopathy 4) Right hip arthritis pain PLAN: -Physical therapy: The patient will continue their home exercise program as tolerated. -Interventional treatment: Consider (B) SIJ injection along with (R) gluteus medius injection; patient is hesitant. -Adjuvant analgesics: Continue Lyrica 50 mg Topamax 25 mg Consider MMC -Opiate management: Refill x 4 week. Xtampza 36 mg BID #60 Oxycodone 15 mg decrease to daily # 30, four week supply. Naloxone was prescribed at today s visit to be used as a rescue medication in case of accidental overdose. The patient was counseled on signs and symptoms of opioid overdose, the proper administration of naloxone, and the importance of contacting EMS. Should the patient have further questions they can contact [place] [facility] for more information. - Lifestyle Changes: Recommend regular exercise, stretching, core strengthening and Mediterranean-st yle diet. -MRI of the right hip ordered. Has not completed as of yet. -Reach out to Coral Anthony @ [facility] regarding her possibility for serotonin syndrome. - Follow up: The patient will follow up as directed for reassessment and medication management dscharch Not available 02/02/2021 15:14:38 03/02/2021 03/02/2021 Diagnostic Studies and Imaging: Awaiting MRI of the lumbar spine results, not on CRISP. Lab Studies/Narcotic Management: The most recent urine drug screen was consistent for prescribed medications. The patient appears functional with the opioid analgesic effect without evidence of addiction abuse or diversion. The patient was selected at random to undergo a urine drug screen at today's visit. We will continuously work with the patient to find the lowest effective dose. [facility] [place] Prescription drug monitoring program was updated and reviewed at today's office visit. It will be scanned into the medical record for documentation. Assessment: See Problem List Outlined Below: 1) Lumbar post-laminectomy syndrome 2) Post (B) mastectomy neuralgia 3) Lumbar radiculopathy 4) Right hip arthritis pain PLAN: -Physical therapy: The patient will continue their home exercise program as tolerated. -Interventional treatment: Consider (B) SIJ injection along with (R) gluteus medius injection; patient is hesitant. -Adjuvant analgesics: Continue Lyrica 50 mg Topamax 25 mg Consider MMC -Opiate management: Refill x 4 week. Xtampza 36 mg BID #60 Oxycodone 15 mg decrease to daily # 30, four week supply. Naloxone current and at home. - Lifestyle Changes: Recommend regular exercise, stretching, core strengthening and Mediterranean-st yle diet. -MRI of the right hip ordered. Has not completed as of yet. -F/u with Coral Anthony @ [facility]. - Follow up: The patient will follow up as directed for reassessment and medication management dscharch Not available 03/02/2021 14:49:38 04/07/2021 04/07/2021 Diagnostic Studies and Imaging: Awaiting MRI of the lumbar spine results, not on CRISP. Lab Studies/Narcotic Management: The most recent urine drug screen was consistent for prescribed medications. The patient appears functional with the opioid analgesic effect without evidence of addiction abuse or diversion. The patient was selected at random to undergo a urine drug screen at today's visit. We will continuously work with the patient to find the lowest effective dose. [facility] [place]/02[place]21 [facility] [place] Prescription drug monitoring program was updated and reviewed at today's office visit. It will be scanned into the medical record for documentation. Assessment: See Problem List Outlined Below: 1) Lumbar post-laminectomy syndrome 2) Post (B) mastectomy neuralgia 3) Lumbar radiculopathy 4) Right hip arthritis pain PLAN: -Physical therapy: The patient will continue their home exercise program as tolerated. -Interventional treatment: Consider (B) SIJ injection along with (R) gluteus medius injection; patient is hesitant. -Adjuvant analgesics: Continue Lyrica 50 mg Topamax 25 mg Consider MMC -Opiate management: Refill x 4 week. Xtampza 36 mg BID #60 Oxycodone 15 mg decrease to daily # 30, four week supply. Naloxone current and at home. - Lifestyle Changes: Recommend regular exercise, stretching, core strengthening and Mediterranean-st yle diet. -MRI of the right hip ordered. Has not completed as of yet. -F/u with Coral Anthony @ [facility]. - Follow up: The patient will follow up as directed for reassessment and medication management dscharch Not available 04/07/2021 15:33:19 05/05/2021 05/05/2021 Diagnostic Studies and Imaging: Awaiting MRI of the lumbar spine results, not on CRISP. Lab Studies/Narcotic Management: The most recent urine drug screen 04/06/21 was consistent for prescribed medications. The patient appears functional with the opioid s analgesic effect without evidence of addiction abuse or diversion. Prescription drug monitoring program review is up to date within the last 3 months and has been scanned into the medical record for review. A urine drug test (UDT) is ordered to monitor compliance of prescribed substances which is standard of care for patients on controlled substances. The UDT can help to identify the use of non-prescribed or illicit substances as well as detect diversion. The UDT is an essential test to properly care for this patient and make sound clinical decisions. A risk assessment is utilized to help guide the frequency and complexity of testing. [facility] 02/02/21 [facility] 10/28/20 Assessment: See Problem List Outlined Below: 1) Lumbar post-laminectomy syndrome 2) Post (B) mastectomy neuralgia 3) Lumbar radiculopathy 4) Right hip arthritis pain PLAN: -Physical therapy: The patient will continue their home exercise program as tolerated. -Interventional treatment: Consider (B) SIJ injection along with (R) gluteus medius injection; patient is hesitant. -Adjuvant analgesics: Continue Lyrica 50 mg TID 90 day supply due Nov. Topamax 25 mg 90 day supply due Nov. Consider MMC -Opiate management: Refill x 4 week. Xtampza 36 mg BID #60 Oxycodone 15 mg decrease to daily # 30, four week supply. Naloxone current and at home. - Lifestyle Changes: Recommend regular exercise, stretching, core strengthening and Mediterranean-st yle diet. -MRI of the right hip ordered. Has not completed as of yet. -F/u with Coral Anthony @ [facility]. - Follow up: The patient will follow up as directed for reassessment and medication management dscharch Not available 05/05/2021 15:35:25 Plan of Treatment Reminders Order Date Submit Date Provider Last Modified By Organization Details Last Modified Time Details Appointments None recorded. Lab None recorded. Referral None recorded. Procedures None recorded. Surgeries None recorded. Imaging None recorded. Medication Orders pregabalin 50 mg capsule 2020 [facility]81328, [address] [place], [place], [id number], 15:41:24 Topamax 50 mg tablet 2020 [facility] #00476, [address] [place], [place], [id number], 15:41:23 Xtampza ER 36 mg capsule sprinkle 2020 [facility] #59766, [address] [place], [place], [id number], 15:41:25 [facility]ycodone 15 mg tablet 2020 [facility], [address] [place], [place], [id number], 15:41:25 Xtampza ER 36 mg capsule sprinkle 2020 [facility] #14062, [address] [place], [place], [id number], 06/24/202 1 15:35:39 oxycodone 15 mg tablet [address] [facility] #43960, [address] [place], [id number], 15:35:39 Xtampza ER 36 mg capsule sprinkle 2020 [email or web address] Not available 14:52:02 oxycodone 15 mg tablet 2020 [facility] Not available 14:52:02 topiramate 50 mg tablet [address] [facility] #47571, [address] [place], [id number], 14:51:57 pregabalin 50 mg capsule [address] [facility] #32094, [address] [address] [place], [id number], 14:51:58 Narcan 4 mg/actuati on nasal spray [address] [facility] #06321, [address] [place], [id number], 15:10:26 Xtampza ER 36 mg capsule sprinkle 2020 021 [facility] Not available 15:11:55 oxycodone 15 mg tablet 2020 [facility] Not available 15:11:55 pregabalin 50 mg capsule 2020 [facility] #07892, [address] [place], [id number], 12:59:23 oxycodone 15 mg tablet 2020 [facility] #24192, [address] [place], [id number], 12:59:19 Xtampza ER 36 mg capsule sprinkle 2020 0[facility] #51477, [address] [address] [place], [id number], 12:59:18 Patient TargetsNo targets recorded. Patient InstructionsNo instructions recorded. Reason for Referral None Reported. Results Created Date Observation Date Name Description Value Unit Range Abnormal Flag Note LastModifiedBy Organization Detail LastModifiedTime Result Notes None recorded. Problems Name Problem SNOMED Code Status Onset Date Resolution Date Notes Provider Name and Address Organization Details Recorded Time Chronic pain syndrome 197243831 Active 2017 Cecilia ayoub MD - [facility] 8 10:38:15 Lumbar post-laminecto my syndrome 016139270 Active 2017 Cecilia ayoub MD - [facility] 8 10:38:23 Lumbar radiculopathy 500486948 Active 2017 Cecilia ayoub MD - [facility] 8 10:38:32 Chronic low back pain 434952549 Active 2017 Cecilia ayoub MD - [facility] 8 10:38:41 Post-mastectom y pain 553017013 Active 2017 ANGELITO LEBRON PA-C [address] [place] [address],[facility] [address], [place], [address] [facility] - [facility] 8 15:06:11 Degeneration of lumbar intervertebral disc 60175308 Active 2017 MD Muriel Taylor [facility] 8 13:53:26 Migraine 20238907 Active 2018 Kiara ayoub MD - [facility] 9 15:49:28 Problem Notes None recorded. Procedures Surgical History Date Name Laterality Status Provider Name and Address Organization Details Recorded Time 05/13/20 18 Mahmood_Lumbar TFESI completed Nena Mast MD - [facility] 05/13/2018 13:53:55 Back Surgery completed Cecilia Puri MD - [facility] 03/01/2018 14:55:11 Cholecystectomy completed Cecilia Puri MD - [facility] 03/01/2018 14:55:20 Unlisted px foot/toes completed Cecilia Puri MD - [facility] 03/01/2018 14:55:28 Knee Surgery completed Cecilia Puri MD - [facility] 03/01/2018 14:55:35 Mastoidectomy completed Cecilia Puri MD - [facility] 03/01/2018 14:55:55 Nipple/areola reconstruction completed Cecilia Puri MD - [facility] 03/01/2018 14:56:12 General Surgery completed Rama Carroll MD - [facility] 04/11/2019 15:09:18 Joint Replacement completed Rama Carroll MD - [facility] 04/11/2019 15:09:18 Imaging Results None recorded. Procedure Notes None recorded. Medical Equipment None Reported. Allergies Allergen ID Allergen Name Allergen Category Reaction Reaction Severity Criticality Documentation Date Start Date Code Code System Note Provider Name and Address Organization Details Recorded Time 27035 aloe extract food,medi cation itching rash Not available Not available Not available 03/01/2018 67701 RxNorm Cecilia ayoub MD [facility] 8 14:52:07 91435 Talwin medicatio n Not available Not available Not available 03/01/2018 8002 RxNorm Cecilia ayoub MD [facility] 8 14:52:20 Medications Name Sig Start Date Stop Date Status Note LastModified by Organization Details LastModified Time Prescriptio n - Prior Authorizati on Request 06/20 completed Not Available Not Available Not Available fluoxetine 40 mg capsule TAKE 1 CAPSULE BY MOUTH IN THE MORNING active Not Available Not Available No t Available trazodone 50 mg tablet 03/02 completed Not Available Not Available Not Available fluconazole 150 mg tablet 06/20 completed Not Available Not Available Not Available sertraline 100 mg tablet Take 1.5 tablets every day by oral route. active Not Available Not Available No t Available topiramate 25 mg tablet TAKE 2 TABLETS BY MOUTH EVERY MORNING, 2 TABLETS AT LUNCH, AND 4 TABLETS EVERY NIGHT AT BEDTIME 02/02 completed Not Available Not Available Not Available sulfamethox azole 800 mg-trimetho prim 160 mg tablet 06/20 completed Not Available Not Available Not Available omeprazole 40 mg capsule,del ayed release TAKE 1 CAPSULE BY MOUTH DAILY active Not Available Not Available No t Available aspirin 81 mg tablet,boone yed release 06/20 completed Not Available Not Available Not Available oxycodone 15 mg tablet TAKE 1 TABLET BY MOUTH DAILY NEEDED active Not Available Not Available No t Available alprazolam 0.25 mg tablet 04/28 completed Not Available Not Available Not Available amitriptyli ne 25 mg tablet 08/05 completed Not Available Not Available Not Available trazodone 100 mg tablet TAKE 1 TABLET BY MOUTH AT BEDTIME active Not Available Not Available No t Available amitriptyli ne 10 mg tablet 03/25 completed Not Available Not Available Not Available desloratadi ne 5 mg tablet 07/23 completed Not Available Not Available Not Available cephalexin 500 mg capsule 06/20 completed Not Available Not Available Not Available lisinopril 10 mg tablet TAKE 1 TABLET BY MOUTH DAILY active Not Available Not Available No t Available sertraline 25 mg tablet 05/26 completed Not Available Not Available Not Available fluoxetine 20 mg capsule TAKE ONE CAPSULE BY MOUTH EVERY MORNING WITH 40 MG CAPSULE active Not Available Not Available No t Available sertraline 50 mg tablet 09/02 completed Not Available Not Available Not Available Wellbutrin SR 200 mg tablet, 12 hr sustained-r elease Take 2 tablets every day by oral route. 03/02 completed Not Available Not Available Not Available bupropion HCl XL 300 mg 24 hr tablet, extended release TAKE 1 TABLET BY MOUTH EVERY MORNING active Not Available Not Available No t Available bupropion HCl XL 150 mg 24 hr tablet, extended release TAKE 1 TABLET BY MOUTH ONCE DAILY WITH THE 300MG DOSAGE 03/02 completed Not Available Not Available Not Available topiramate 50 mg tablet TAKE 1 TABLET BY MOUTH EVERY MORNING AND IN THE AFTERNOON . TAKE 2 TABLETS BY MOUTH AT BEDTIME 2020 active Not Available Not Available Not Avai lable pregabalin 50 mg capsule TAKE 1 CAPSULE BY MOUTH THREE TIMES DAILY DIRECTED active Not Available Not Available No t Available OxyContin 40 mg tablet,yessica h resistant,e xtended release Take 1 tablet every 12 hours by oral route as directed. 06/20 completed Not Available Not Available Not Available Narcan 4 mg/actuatio n nasal spray USE DIRECTED active Not Available Not Available No t Available Xtampza ER 36 mg capsule sprinkle TAKE 1 CAPSULE BY MOUTH EVERY 12 HOURS DIRECTED FOR PAIN active Not Available Not Available No t Available Vitals Date Recorded Body height Respiratory rate Body temperature Body mass index (BMI) Body weight Heart rate Systolic And Diastolic Provider Name and Address Organization Details Last Updated DateTime 1 162.56 cm 16 /min 98 [degF] 39.1 kg/m2 523203. 06 g 87 /min 89/59 mm[Hg] Haylie Tomlinson MD [facility] 12:42:45 Date Recorded Body height Respiratory rate Body mass index (BMI) Body weight Heart rate Systolic And Diastolic Provider Name and Address Organization Details Last Updated DateTime 1 162.56 cm 16 /min 39.1 kg/m2 161737. 06 g 80 /min 177/102 mm[Hg] Alvaro Mejias MD [facility] 14:51:37 Date Recorded Heart rate Systolic And Diastolic Provider Name and Address Organization Details Last Updated DateTime 03/02/2021 68 /min 194/105 mm[Hg] Josseline Jha NP [address] [facility], [place], [address], [facility] 03/02/2021 14:42:08 Date Recorded Body height Respiratory rate Body mass index (BMI) Body weight Provider Name and Address Organization Details Last Updated DateTime 03/02/2021 162.56 cm 16 /min 39.1 kg/m2 912350.06 g Alvaro Mejias MD [facility] 03/02/2021 14:27:16 Date Recorded Body height Respiratory rate Body mass index (BMI) Body weight Heart rate Systolic And Diastolic Provider Name and Address Organization Details Last Updated DateTime 1 162.56 cm 16 /min 39.1 kg/m2 494286. 06 g 80 /min 160/110 mm[Hg] Ramya Laird MD [facility] 15:29:28 Date Recorded Body height Respiratory rate Body mass index (BMI) Body weight Heart rate Systolic And Diastolic Provider Name and Address Organization Details Last Updated DateTime 1 162.56 cm 16 /min 39.1 kg/m2 040506. 06 g 87 /min 191/115 mm[Hg] Alvaro Llamas [facility] 15:11:22 Social History Question Answer Notes LastModified by [employer] Details LastModified Time Tobacco Smoking Status Never Smoker MD Muriel Covarrubias [facility] 03/01/2018 14:53:59 Auto Related Injury? No Information not available 03/01/2018 What Is Your Level Of Caffeine Consumption? Heavy Information not available 10/28/2020 Which Illicit Or Recreational Drugs Have You Used? None Information not available 03/01/2018 Education 11 [email or web address] Information no t available 01/28/2019 Which Of Your Hands Is Dominant? Right [email or web address] Information not available 10/28/2020 Live Alone Or With Others? With Others Information not available 03/01/2018 Pain Level. 8 [email or web address] Information n ot available 01/28/2019 What Was The Date Of Your Most Recent Tobacco Screening? 04/11/2019 [email or web address] Information not available 10/28/2020 How Much Tobacco Do You Smoke? No Information not available 10/28/2020 How Many Years Have You Smoked Tobacco? None [email or web address] Information not available 10/28/2020 Work Related Injury? No Information not available 03/01/2018 Sex: Female Functional Status Question Answer Note LastModified by [employer] Details LastModified Time What is your level of alcohol consumption? Occasional Information not available 03/01/2018 Are you currently employed? No [email or web address] Information not available 10/28/2020 What is your occupation? Retired [email or web address] Information not available 10/28/2020 Mental Status None recorded. Family History Relationship Description Onset Age of this Age Resolved Age Notes LastModified by Organization Details LastModified Time Maternal Grandmother Arthritis [email or web address] Not available 11:40:38 Maternal Grandmother Depressive disorder [email or web address] Not available 2019 15:13:00 Mother Arthritis Not avail able 09/30/2020 11:40:08 Mother Depressive disorder [email or web address] Not available 2019 15:13:00 Maternal Grandfather Arthritis Not available 09/30/2020 11:40:08 Medical History Condition Response Thyroid Disease N Head Trauma/Injury N Depression Y Carpel Tunnel N Cardiac Hx N Pacemaker N Gastrointestinal Disease N Anxiety Disorder Y Diabetes N Respiratory Hx N Arthritis Y Blood Disorder N AIDS/HIV N Cancer Y Heart Attack N Substance Abuse N MRSA Hx N Back Injury Y Hepatitis N Liver Disease N Seizure or Epilespsy N Headaches N Fibromyalgia N Hypertension Y Osteoporosis N Kidney Disease Y Gynecological HistoryNo gynecological history recorded. Obstetrics History GPAL:G 0 P 0 0 0 0 Past Encounters Encounter ID Performer Location Encounter Start Date Encounter Closed Date Diagnosis/Indication Diagnosis SNOMED-CT Code Diagnosis ICD10 Code Diagnosis Note [id number] DO [address] [place] [id number] 03/01/2018 14:07:10 03/01/2018 15:13:14 Chronic pain syndrome 143826856 G89.4 Lumbar post-laminectomy syndrome 891392993 M96.1 Lumbar radiculopathy 128 949220 M54.16 Chronic low back pain 27 1423845 M54.5 Post-mastectomy pain 239 901795 G89.18 [id number] DO [address] [place] [id number] 04/05/2018 13:03:58 04/05/2018 14:25:24 Chronic pain syndrome 837729112 G89.4 Lumbar post-laminectomy syndrome 490055804 M96.1 Lumbar radiculopathy 128 288372 M54.16 Chronic low back pain 27 1256704 M54.5 Post-mastectomy pain 239 757482 G89.18 [id number] DO [address] [place] [id number] 04/26/2018 14:01:19 04/26/2018 15:03:17 Chronic pain syndrome 708581577 G89.4 Lumbar post-laminectomy syndrome 647607345 M96.1 Lumbar radiculopathy 128 012149 M54.16 Chronic low back pain 27 2118028 M54.5 Post-mastectomy pain 239 231903 G89.18 [id number] [place] [address] [facility] [id number] 05/13/2018 13:11:05 05/14/2018 16:37:18 Lumbar radiculopathy 417630025 M54.16 Degenerati on of lumbar intervertebral disc 77328085 M51.36 [id number] Servando Davidson [place] [address] [address] [place] [id number] 06/04/2018 13:40:24 06/04/2018 14:34:57 Long-term drug therapy 401145893 Z79.899 Chronic pain syndrome 37 3091567 G89.4 Lumbar post-laminectomy syndrome 850690478 M96.1 Lumbar radiculopathy 128 515955 M54.16 Chronic low back pain 27 8476630 M54.5 Post-mastectomy pain 239 597715 G89.18 [id number] Servando Davidson [place] [address] [address] [place] [id number] 07/05/2018 13:31:34 07/05/2018 14:21:19 Long-term drug therapy 551191139 Z79.899 Chronic pain syndrome 37 2263115 G89.4 Lumbar post-laminectomy syndrome 055290302 M96.1 Lumbar radiculopathy 128 040215 M54.16 Chronic low back pain 27 9974070 M54.5 Post-mastectomy pain 239 381643 G89.18 [id number] Servando Davidson[address]El[address] Daily [facility],[place] [address] 08/07/2018 12:55:29 08/07/2018 13:36:32 Long-term drug therapy 126573548 Z79.899 Chronic pain syndrome 37 3309138 G89.4 Lumbar post-laminectomy syndrome 714256773 M96.1 Lumbar radiculopathy 128 247824 M54.16 Chronic low back pain 27 5324225 M54.5 Post-mastectomy pain 239 397627 G89.18 [id number] Servando Davidson [facility] [address] [place] [address] 10/18/2018 10:01:25 10/18/2018 10:55:51 Long-term drug therapy 925514986 Z79.899 Chronic pain syndrome 37 7432554 G89.4 Lumbar post-laminectomy syndrome 690798895 M96.1 Lumbar radiculopathy 128 643361 M54.16 Chronic low back pain 27 0308919 M54.5 Post-mastectomy pain 239 822982 G89.18 [id number] Servando Davidson [facility] [address] [place] [address] 12/05/2018 15:06:05 12/05/2018 15:56:38 Chronic pain syndrome 393746728 G89.4 Lumbar post-laminectomy syndrome 111817795 M96.1 Lumbar radiculopathy 128 237068 M54.16 Chronic low back pain 27 1096349 M54.5 Post-mastectomy pain 239 450180 G89.18 Degenerati on of lumbar intervertebral disc 60847938 M51.36 [id number] Servando Davidson [facility] [address] MD [place] [address] 01/28/2019 11:04:52 01/28/2019 11:33:10 Post-mastectomy pain 593914334 G89.18 Degenerati on of lumbar intervertebral disc 23442579 M51.36 Lumbar radiculopathy 128 902877 M54.16 Lumbar post-laminectomy syndrome 438751201 M96.1 Chronic low back pain 27 6349761 M54.5 Chronic pain syndrome 37 6951460 G89.4 [id number] Servando Davidson [address],[place] [address] 02/26/2019 11:20:44 02/26/2019 12:09:42 Post-mastectomy pain 670448070 G89.18 Degenerati on of lumbar intervertebral disc 74827840 M51.36 Lumbar radiculopathy 128 758550 M54.16 Lumbar post-laminectomy syndrome 811657297 M96.1 Chronic low back pain 27 2075937 M54.5 Chronic pain syndrome 37 2967295 G89.4 [id number] DO [address] [place] [address] 04/11/2019 14:31:38 04/11/2019 15:33:04 Post-mastectomy pain 895877816 G89.18 Degenerati on of lumbar intervertebral disc 93914371 M51.36 Lumbar radiculopathy 128 773027 M54.16 Lumbar post-laminectomy syndrome 349916466 M96.1 Chronic low back pain 27 9366425 M54.5 Chronic pain syndrome 37 1015067 G89.4 [id number] Bella Pedro, ELISA [address],[place] [address] 05/20/2019 15:20:17 05/20/2019 16:06:53 Post-mastectomy pain 175116185 G89.18 Degenerati on of lumbar intervertebral disc 42232689 M51.36 Lumbar radiculopathy 128 577827 M54.16 Lumbar post-laminectomy syndrome 636567693 M96.1 Chronic low back pain 27 1734173 M54.5 Chronic pain syndrome 37 9482402 G89.4 [id number] [place] [address] 2 06/20/2019 09:11:59 06/20/2019 10:14:53 Post-mastectomy pain 529779161 G89.18 Degenerati on of lumbar intervertebral disc 08591522 M51.36 Lumbar radiculopathy 128 027224 M54.16 Lumbar post-laminectomy syndrome 323556547 M96.1 Chronic low back pain 27 2496060 M54.5 Chronic pain syndrome 37 3893707 G89.4 [id number] DO P[address] [place] [address] 2 07/23/2019 15:50:19 07/23/2019 16:27:49 Post-mastectomy pain 702714916 G89.18 Degenerati on of lumbar intervertebral disc 74329571 M51.36 Lumbar radiculopathy 128 468887 M54.16 Lumbar post-laminectomy syndrome 136710336 M96.1 Chronic low back pain 27 0610011 M54.5 Chronic pain syndrome 37 9903246 G89.4 [id number] DO Pric[address] [place] [address] 08/21/2019 12:11:25 08/21/2019 12:58:18 Post-mastectomy pain 515043124 G89.18 Degenerati on of lumbar intervertebral disc 35149337 M51.36 Lumbar radiculopathy 128 942690 M54.16 Lumbar post-laminectomy syndrome 678275516 M96.1 Chronic low back pain 27 1974864 M54.5 Chronic pain syndrome 37 1712768 G89.4 Pain of ri ght hip joint 3833752335 62372 M25.886 [id number] DO [address] [place] [address] 2 09/25/2019 12:27:34 09/25/2019 14:13:58 Post-mastectomy pain 855159554 G89.18 Degenerati on of lumbar intervertebral disc 52086909 M51.36 Lumbar radiculopathy 128 828102 M54.16 Lumbar post-laminectomy syndrome 795105950 M96.1 Chronic low back pain 27 7459637 M54.5 Chronic pain syndrome 37 6175272 G89.4 Pain of ri ght hip joint 4244546018 92324 M25.551 Long-term drug therapy 066633252 Z79.899 Insomnia 065860337 G47.0 0 Neuralgia 67534870 M79.2 [id number] MD Pricila [address] [place] [address] 2 10/28/2019 14:04:40 10/28/2019 14:56:18 Post-mastectomy pain 989948686 G89.18 Degenerati on of lumbar intervertebral disc 02178381 M51.36 Lumbar radiculopathy 128 816584 M54.16 Lumbar post-laminectomy syndrome 222283838 M96.1 Chronic low back pain 27 0509327 M54.5 Chronic pain syndrome 37 8104286 G89.4 Pain of ri ght hip joint 6094192083 47082 M25.551 Insomnia 804722981 G47.0 0 Neuralgia 89612931 M79.2 [id number] DO P[address] [place] [address] 2 12/03/2019 16:12:00 12/03/2019 17:17:54 Post-mastectomy pain 486511502 G89.18 Degenerati on of lumbar intervertebral disc 89416486 M51.36 Lumbar radiculopathy 128 416153 M54.16 Lumbar post-laminectomy syndrome 833938361 M96.1 Chronic low back pain 27 1270043 M54.5 Chronic pain syndrome 37 6597946 G89.4 Pain of ri ght hip joint 4368872376 47014 M25.551 Insomnia 604656807 G47.0 0 Neuralgia 97512047 M79.2 [id number] MD Pricila [address] [place] [address] 2 01/01/2020 14:13:11 01/01/2020 14:36:13 Post-mastectomy pain 188086148 G89.18 Degenerati on of lumbar intervertebral disc 95225659 M51.36 Lumbar radiculopathy 128 272936 M54.16 Lumbar post-laminectomy syndrome 407597131 M96.1 Chronic low back pain 27 5353278 M54.5 Chronic pain syndrome 37 1340524 G89.4 Pain of ri ght hip joint 2131743444 39995 M25.551 Neuralgia 23602033 M79.2 [id number] Servando Ford DO Pricila [address] [place] [address] 01/29/2020 14:06:35 01/29/2020 14:39:06 Chronic pain syndrome 151285901 G89.4 Lumbar radiculopathy 128 233789 M54.16 Chronic low back pain 27 4406540 M54.5 Degenerati on of lumbar intervertebral disc 35311465 M51.36 Lumbar post-laminectomy syndrome 222454676 M96.1 Post-mastectomy pain 239 477345 G89.18 Pain of ri ght hip joint 6827029620 95105 M25.551 Neuralgia 97990951 M79.2 [id number] MD Pricila [address] MD [place] [address] 2 02/26/2020 12:53:56 02/26/2020 13:26:00 Chronic pain syndrome 963368367 G89.4 Lumbar radiculopathy 128 964125 M54.16 Chronic low back pain 27 6360556 M54.5 Degenerati on of lumbar intervertebral disc 55485160 M51.36 Lumbar post-laminectomy syndrome 366391859 M96.1 Post-mastectomy pain 239 918788 G89.18 Pain of ri ght hip joint 4360290220 71463 M25.551 Neuralgia 26497290 M79.2 [id number] MD Pricila [address] [place] [address] 2 03/25/2020 14:07:29 03/25/2020 14:46:53 Chronic pain syndrome 574814565 G89.4 Lumbar radiculopathy 128 865186 M54.16 Chronic low back pain 27 0802842 M54.5 Degenerati on of lumbar intervertebral disc 10338838 M51.36 Lumbar post-laminectomy syndrome 915459733 M96.1 Post-mastectomy pain 239 659685 G89.18 Pain of ri ght hip joint 1310600454 12556 M25.551 Neuralgia 47060186 M79.2 Localized swelling, mass and lump, upper limb 930380000 R22.31 [id number] MD Pricila [address] [place] [address] 2 04/28/2020 15:14:11 04/28/2020 15:59:39 Chronic pain syndrome 468298331 G89.4 Lumbar radiculopathy 128 349721 M54.16 Chronic low back pain 27 4691677 M54.5 Degenerati on of lumbar intervertebral disc 59590806 M51.36 Lumbar post-laminectomy syndrome 491503859 M96.1 Post-mastectomy pain 239 105819 G89.18 Pain of ri ght hip joint 0637000109 46485 M25.551 Neuralgia 50962069 M79.2 Localized swelling, mass and lump, upper limb 141158244 R22.31 [id number] MD Pricila [address] [place] [address] 2 05/26/2020 16:04:15 05/26/2020 16:35:51 Chronic pain syndrome 406308740 G89.4 Lumbar radiculopathy 128 743631 M54.16 Chronic low back pain 27 5974466 M54.5 Degenerati on of lumbar intervertebral disc 00167806 M51.36 Lumbar post-laminectomy syndrome 318712012 M96.1 Post-mastectomy pain 239 774579 G89.18 Pain of ri ght hip joint 0678744541 66672 M25.551 Neuralgia 12904701 M79.2 Localized swelling, mass and lump, upper limb 248932866 R22.31 Lumbosacra l radiculitis 92192252 M54.17 [id number] MD Pricila [address] [place] [address] 07/08/2020 14:17:50 07/08/2020 15:43:57 Chronic pain syndrome 570228021 G89.4 Lumbar radiculopathy 128 M54.16 Chronic low back pain 27 2156311 M54.5 Degenerati on of lumbar intervertebral disc 19671984 M51.36 Lumbar post-laminectomy syndrome 842609394 M96.1 Post-mastectomy pain 239 926200 G89.18 Pain of ri ght hip joint 2155843609 90281 M25.551 Neuralgia 23810727 M79.2 Localized swelling, mass and lump, upper limb 028726319 R22.31 Lumbosacra l radiculitis 32073516 M54.17 [id number] MD Pricila [address] [place] [address] 2 08/05/2020 13:55:07 08/05/2020 14:46:26 Chronic pain syndrome 514013221 G89.4 Lumbar radiculopathy 128 M54.16 Chronic low back pain 27 7542028 M54.5 Degenerati on of lumbar intervertebral disc 21097010 M51.36 Lumbar post-laminectomy syndrome 059675979 M96.1 Post-mastectomy pain 239 427374 G89.18 Pain of ri ght hip joint 8135469451 58985 M25.551 Neuralgia 78505828 M79.2 Localized swelling, mass and lump, upper limb 273930407 R22.31 Lumbosacra l radiculitis 16801561 M54.17 [id number] DO Pricila [address] [place] [address] 2 09/02/2020 13:45:14 09/02/2020 14:52:06 Chronic pain syndrome 147924602 G89.4 Lumbar radiculopathy 128 238092 M54.16 Chronic low back pain 27 0605081 M54.5 Degenerati on of lumbar intervertebral disc 18437847 M51.36 Lumbar post-laminectomy syndrome 533156313 M96.1 Post-mastectomy pain 239 649852 G89.18 Pain of ri ght hip joint 2320217253 52655 M25.551 Neuralgia 78877322 M79.2 Localized swelling, mass and lump, upper limb 418335446 R22.31 Lumbosacra l radiculitis 37517953 M54.17 [id number] DO Pricila [address] [place] [address] 2 09/30/2020 11:11:40 09/30/2020 12:08:20 Chronic pain syndrome 708975450 G89.4 Lumbar radiculopathy 128 382828 M54.16 Chronic low back pain 27 1832876 M54.5 Degenerati on of lumbar intervertebral disc 75537796 M51.36 Lumbar post-laminectomy syndrome 561472448 M96.1 Post-mastectomy pain 239 677283 G89.18 Pain of ri ght hip joint 8296497340 54018 M25.551 Neuralgia 67288449 M79.2 Localized swelling, mass and lump, upper limb 786317137 R22.31 Lumbosacra l radiculitis 41088737 M54.17 [id number] DO Pricila [address] [place] [address] 2 10/28/2020 11:28:41 10/28/2020 12:58:12 Chronic pain syndrome 644230729 G89.4 Lumbar radiculopathy 128 749634 M54.16 Chronic low back pain 27 1630716 M54.5 Degenerati on of lumbar intervertebral disc 52292174 M51.36 Lumbar post-laminectomy syndrome 991750598 M96.1 Post-mastectomy pain 239 198953 G89.18 Pain of ri ght hip joint 1316199813 79504 M25.551 Neuralgia 79391738 M79.2 Localized swelling, mass and lump, upper limb 208090404 R22.31 Lumbosacra l radiculitis 04648190 M54.17 [id number] DO Alisa Vance [facility] [address] [place] [address] 12/02/2020 14:42:07 12/02/2020 15:36:59 Chronic pain syndrome 869994363 G89.4 Lumbar radiculopathy 128 955520 M54.16 Chronic low back pain 27 2142558 M54.5 Degenerati on of lumbar intervertebral disc 52057540 M51.36 Lumbar post-laminectomy syndrome 254305891 M96.1 Post-mastectomy pain 239 846319 G89.18 Pain of ri ght hip joint 2469776882 80651 M25.551 Neuralgia 18616239 M79.2 Localized swelling, mass and lump, upper limb 246305049 R22.31 Lumbosacra l radiculitis 26743599 M54.17 [id number] DO Jac Vanceon [address] [place] [address] 2 12/14/2020 12:27:13 12/14/2020 13:02:52 Chronic pain syndrome 629802391 G89.4 Lumbar radiculopathy 128 789896 M54.16 Chronic low back pain 27 7462210 M54.5 Degenerati on of lumbar intervertebral disc 14977625 M51.36 Lumbar post-laminectomy syndrome 231831300 M96.1 Post-mastectomy pain 239 043026 G89.18 Pain of ri ght hip joint 0952885956 12797 M25.551 Neuralgia 52534409 M79.2 Localized swelling, mass and lump, upper limb 025336467 R22.31 Lumbosacra l radiculitis 61078569 M54.17 [id number] DO Jac Vanceon [address] [place] [address] 2 02/02/2021 14:37:11 02/02/2021 15:14:05 Chronic pain syndrome 204663845 G89.4 Lumbar radiculopathy 128 133441 M54.16 Chronic low back pain 27 1632612 M54.5 Degenerati on of lumbar intervertebral disc 89934621 M51.36 Lumbar post-laminectomy syndrome 935248886 M96.1 Post-mastectomy pain 239 872959 G89.18 Pain of ri ght hip joint 7378323578 76437 M25.551 Neuralgia 96231223 M79.2 Localized swelling, mass and lump, upper limb 161905713 R22.31 Lumbosacra l radiculitis 43395915 M54.17 Continuous opioid dependence 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 G89.[id number] [place] [address] 2 03/02/2021 14:25:27 03/02/2021 14:55:27 Chronic pain syndrome 733577276 G89.4 Lumbar radiculopathy 128 M54.16 Chronic low back pain 27 2147420 M54.5 Degenerati on of lumbar intervertebral disc 36963330 M51.36 Lumbar post-laminectomy syndrome 768626508 M96.1 Post-mastectomy pain 239 583503 G89.18 Pain of ri ght hip joint 1154765717 35656 M25.551 Neuralgia 44927459 M79.2 Localized swelling, mass and lump, upper limb 302756767 R22.31 Lumbosacra l radiculitis 88084056 M54.17 Continuous opioid dependence 389243715 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 42 5761671 G89.0 [id number] DO Pricila Vance [address] [place] [address] 2 05/05/2021 14:41:16 05/05/2021 15:42:07 Chronic pain syndrome 378070505 G89.4 Lumbar radiculopathy 128 096146 M54.16 Chronic low back pain 27 1696908 M54.5 Degenerati on of lumbar intervertebral disc 95476821 M51.36 Lumbar post-laminectomy syndrome 480190660 M96.1 Post-mastectomy pain 239 738027 G89.18 Pain of ri ght hip joint 7463884294 54832 M25.551 Neuralgia 26447556 M79.2 Localized swelling, mass and lump, upper limb 684075595 R22.31 Lumbosacra l radiculitis 82366122 M54.17 Continuous opioid dependence 463648675 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 42 5945258 G89.0 Health Concerns Section Related Observation LastModified by Organization Detai ls LastModified Time None Recorded Concern Status LastModified by Organization Details LastModified Time None Recorded Advance Directives Directive None Recorded Payers Insurance Date Sequence Insurance Name Policy Number Policy Cook Covered Member ID Cook Member ID Guarantor Name 05/30/2021 1 MEDICARE B-MD: [employer] MEDICARE - ALL OTHER [facility] Sandy [place]ers [id number] Sandy [employer]ers 05/30/2021 2 [employer] (MEDICARE SUPPLEMENT) Sandy Towers [id number] Sandy Towers 12/23/2018 2 [employer] Contact[employer] (MEDICARE SUPPLEMENT) Sandy Towers [id number] Sandy Towers 01/11/2021 3 [employer] (MEDICARE SUPPLEMENT) Sandy Towers [id number] Sandy Towers 10/23/2018 1 MEDICARE B-MD: [employer] MEDICARE - ALL OTHER [facility] Sandy Towers [id number] Sandy Towers 11/15/2018 1 SHALA-MD: [employer] (MEDICARE SUPPLEMENT) [id number] Sandy Rosas [id number] Sandy Rosas Notes Date Note Type Note Provider Name and Address Organization Details Recorded Time 12/14/2020 text/html Pain Management F/UReported bypatient.Location :lower back bilateral; hip bilateral Quality:sharp; tingling; numbess; burning; throbbing; shooting; radiating; Sx's Change Depending On Time of Day & Activity Severity:same;whit re (8-10);interferenc e with sleep Duration:present for >12 months Timing:intermitten t Alleviating Factors:medication Aggravating Factors:movement/p ositioning; bending over; twisting Associated Symptoms:no weakness; no skin changes; no fever; no swelling; no bowel changes; no bladder changes;numbness;t ingling The patient presents to clinic today for reassessment and re-evaluation. As you may be aware we follow this patient in regards to their low back pain secondary to lumbar post-laminectomy syndrome with continued mostly arthritic changes over the hips and sacroiliac joints. She also has a history of breast cancer with double mastectomy. She had a recent left knee replacement. . The patient currently describes their pain as an aching burning, throbbing and rates it a 7/10. Today's visit: 12/14/20-Ms. Rosas presents to the clinic for re-evaluation and management of her chronic pain. Pain level is a 7-8/10 which is unchanged from her last visit. Interim history: Reports increasing her Prozac to 60 mg daily and is starting counseling tomorrow. UDS-10/28/20-Consis tent. The patient continues to use medications as prescribed with adequate analgesic effect (pain reduction >30%). The patient has improvements in daily function without significant side effects (ie. somnolence, respiratory depression, etc.). An opioid contract is on file and appropriate monitoring (UDS/bloodwork tox) is performed regularly. Josseline Jha NP [address] [facility], [place], [address], - [facility] 12/14/2020 13:02:09 02/02/2021 text/html Pain Management F/UReported bypatient.Location :lower back bilateral; hip bilateral Quality:sharp; tingling; numbess; burning; throbbing; shooting; radiating; Sx's Change Depending On Time of Day & Activity Severity:same;mode rate (5-7);interference with sleep Duration:present for >12 months Timing:intermitten t Alleviating Factors:medication Aggravating Factors:movement/p ositioning; bending over; twisting Associated Symptoms:no weakness; no skin changes; no fever; no swelling; no bowel changes; no bladder changes;numbness;t ingling The patient presents to clinic today for reassessment and re-evaluation. As you may be aware we follow this patient in regards to their low back pain secondary to lumbar post-laminectomy syndrome with continued mostly arthritic changes over the hips and sacroiliac joints. She also has a history of breast cancer with double mastectomy. She had a recent left knee replacement. . The patient currently describes their pain as an aching burning, throbbing and rates it a 7/10. Today's visit: 02/02/21-Ms. Rosas presents to the clinic for re-evaluation and management of her chronic pain. Pain level is a 6/10 which is decreased from her last visit. Interim history: Reports recent trip and landed on her back, denies striking her head or loss of conciousness. UDS-10/28/20-Consis tent. The patient continues to use medications as prescribed with adequate analgesic effect (pain reduction >30%). The patient has improvements in daily function without significant side effects (ie. somnolence, respiratory depression, etc.). An opioid contract is on file and appropriate monitoring (UDS/bloodwork tox) is performed regularly. Josseline Jha NP [address] [facility],[address], [place], [address], - [facility] 02/02/2021 15:56:38 03/02/2021 text/html Pain Management F/UReported bypatient.Location :lower back bilateral; hip bilateral Quality:sharp; tingling; numbess; burning; throbbing; shooting; radiating; Sx's Change Depending On Time of Day & Activity Severity:same;mode rate (5-7);interference with sleep Duration:present for >12 months Timing:intermitten t Alleviating Factors:medication Aggravating Factors:movement/p ositioning; bending over; twisting Associated Symptoms:no weakness; no skin changes; no fever; no swelling; no bowel changes; no bladder changes;numbness;t ingling The patient presents to clinic today for reassessment and re-evaluation. As you may be aware we follow this patient in regards to their low back pain secondary to lumbar post-laminectomy syndrome with continued mostly arthritic changes over the hips and sacroiliac joints. She also has a history of breast cancer with double mastectomy. She had a recent left knee replacement. . The patient currently describes their pain as an aching burning, throbbing and rates it a 7/10. Today's visit: 03/02/21-Ms. Rosas presents to the clinic for re-evaluation and management of her chronic pain. Pain level is a 6/10 which is unchanged from her last visit. Interim history: Reports completing her second covid vaccine yesterday without issue, otherwise no changes. UDS-02/02/21-Consis tent. The patient continues to use medications as prescribed with adequate analgesic effect (pain reduction >30%). The patient has improvements in daily function without significant side effects (ie. somnolence, respiratory depression, etc.). An opioid contract is on file and appropriate monitoring (UDS/bloodwork tox) is performed regularly. Josseline Jha NP [address] [facility],[address], [place], [address], [facility] 03/02/2021 14:55:29 04/07/2021 text/html Pain Management F/UReported bypatient.Location :lower back bilateral; hip bilateral Quality:sharp; tingling; numbess; burning; throbbing; shooting; radiating; Sx's Change Depending On Time of Day & Activity Severity:same;mode rate (5-7);interference with sleep Duration:present for >12 months Timing:intermitten t Alleviating Factors:medication Aggravating Factors:movement/p ositioning; bending over; twisting Associated Symptoms:no weakness; no skin changes; no fever; no swelling; no bowel changes; no bladder changes;numbness;t ingling As you may be aware we follow this patient in regards to their low back pain secondary to lumbar post-laminectomy syndrome with continued mostly arthritic changes over the hips and sacroiliac joints. She also has a history of breast cancer with double mastectomy. She had a recent left knee replacement. . The patient currently describes their pain as an aching burning, throbbing and rates it a 7/10. Today's visit: 04/07/21-Ms. Rosas presents to the clinic for re-evaluation and management of her chronic pain. Pain level is a 6/10 which is unchanged from her last visit. Interim history: Patient reports overall stable condition since her last visit. Pain is controlled on current medication regimen without side effects. Patient denies side effects of opioid treatment, including sedation, dizziness, nausea, vomiting, constipation, and hyperalgesia UDS-02/02/21-Consis tent. The patient continues to use medications as prescribed with adequate analgesic effect (pain reduction >30%). The patient has improvements in daily function without significant side effects (ie. somnolence, respiratory depression, etc.). An opioid contract is on file and appropriate monitoring (UDS/bloodwork tox) is performed regularly. Josseline Jha NP [address] [facility],[address], [place], [address], [facility] 04/07/2021 15:36:00 05/05/2021 text/html Pain Management F/UReported bypatient.Location :lower back bilateral; hip bilateral Quality:sharp; tingling; numbess; burning; throbbing; shooting; radiating; Sx's Change Depending On Time of Day & Activity Severity:same;mode rate (5-7);interference with sleep Duration:present for >12 months Timing:intermitten t Alleviating Factors:medication Aggravating Factors:movement/p ositioning; bending over; twisting Associated Symptoms:no weakness; no skin changes; no fever; no swelling; no bowel changes; no bladder changes;numbness;t ingling As you may be aware we follow this patient in regards to their low back pain secondary to lumbar post-laminectomy syndrome with continued mostly arthritic changes over the hips and sacroiliac joints. She also has a history of breast cancer with double mastectomy. She had a recent left knee replacement. . The patient currently describes their pain as an aching burning, throbbing and rates it a 7/10. Today's visit: 05/05/21-Ms. Rosas presents to the clinic for re-evaluation and management of her chronic pain. Pain level is a 6/10 which is unchanged from her last visit. Interim history: There has been no change in the intensity, quality, or duration of the patient's pain since the last office visit. UDS-02/02/21-Consis tent. The patient continues to use medications as prescribed with adequate analgesic effect (pain reduction >30%). The patient has improvements in daily function without significant side effects (ie. somnolence, respiratory depression, etc.). An opioid contract is on file and appropriate monitoring (UDS/bloodwork tox) is performed regularly. Josseline Jha, ELISA [address] [facility],[address], [place], [address], - Pending Sale To [facility] 05/05/2021 15:41:38 OBGyn Episode No OBEpisode recorded.
--- OUTSIDE RECORDS SUMMARY | 2025-04-24 10:32 | XMS_ITS ---
Author Name [facility] Organization Unknown Results Test Name/Text Value Interpretation Date Range Source CO2 SerPl-sCnc 30.0 mmol/L Normal 08/20/2023 21 - 32 [facility] ALP SerPl-cCnc 91.0 U/L Normal 08/20/2023 42 - 161 [facility] Potassium SerPl-sCnc 3.5 mmol/L Normal 08/20/2023 3.5 - 5.1 [facility] AST SerPl-cCnc 22.0 U/L Normal 08/20/2023 15 - 37 [facility] Chloride SerPl-sCnc 105.0 mmol/L Normal 08/20/2023 98 - 107 [facility] Anion Gap SerPl-sCnc 5.0 mmol/L Normal 08/20/2023 5 - 14 [facility] Sodium SerPl-sCnc 140.0 mmol/L Normal 08/20/2023 136 - 14 5 [facility] Bilirub SerPl-mCnc 0.35 mg/dL Normal 08/20/2023 0.2 - 1 [facility] Globulin Ser Calc-mCnc 4.2 g/dL Above high normal 08/20/2023 1.9 - 3.7 [facility] H Calcium SerPl-mCnc 8.7 mg/dL Normal 08/20/2023 8.5 - 10.1 [facility] BUN SerPl-mCnc 19.0 mg/dL Above high normal 08/20/2023 7 - 1 8 [facility] Prot SerPl-mCnc 7.7 g/dL Normal 08/20/2023 6.4 - 8.2 [facility] ALT SerPl w P-5'-P-cCnc 22.0 U/L Normal 08/20/2023 13 - 61 [facility] Glucose SerPl-mCnc 107.0 mg/dL Above high normal 08/20/2023 70 - 100 [facility] Creat SerPl-mCnc 1.34 mg/dL Above high normal 08/20/2023 0.5 1 - 0.95 [facility] eGFRcr SerPlBld CKD-EPI 2020 43.0 mL/min/1.73 m2 Below low normal 08/20/2023 - [facility] Albumin SerPl-mCnc 3.5 g/dL Normal 08/20/2023 3.4 - 5 [facility] Trigl SerPl-mCnc 178.0 mg/dL Above high normal 08/20/2023 - 150 [facility] NonHDLc SerPl-mCnc 128.0 mg/dL Normal 08/20/2023 [facility] HDLc SerPl-mCnc 45.0 mg/dL Normal 08/20/2023 40 - 60 [facility] Cholest SerPl-mCnc 173.0 mg/dL Normal 08/20/2023 - 200 [facility] LDLc SerPl Direct Assay-mCnc 92.0 mg/dL Normal 08/20/2023 65 - 129 [facility] PMV Bld Auto 7.3 fL Below low normal 08/20/2023 8.7 - 11. 8 [facility] MCHC RBC Auto-mCnc 33.6 g/dL Normal 08/20/2023 31 - 37 [facility] MCH RBC Qn Auto 30.8 pg Normal 08/20/2023 25.4 - 34.6 [facility] MCV RBC Auto 92.0 fL Normal 08/20/2023 80 - 100 [facility] RDW RBC Auto-Rto 12.6 % Below low normal 08/20/2023 13 - 18.5 [facility] Platelet # Bld Auto 400.0 x10E3/uL Above high normal 08/20/2023 150 - 375 [facility] LTH Hgb Bld-mCnc 13.6 g/dL Normal 08/20/2023 12 - 16 [facility] Hct VFr Bld Auto 40.4 % Normal 08/20/2023 36 - 46 [facility] WBC # Bld Auto 9.4 x10E3/uL Normal 08/20/2023 4 - 12 [facility] RBC # Bld Auto 4.4 x10E6/uL Normal 08/20/2023 3.8 - 5 [facility] Encounters Encounter Type Encounter Reason Primary Diagnosis Location Date Ambulatory Essential (primary) hypertension Essential (primary) hypertension [facility] 08/08/2023 Ambulatory [facility] 04/24/2023 Ambulatory TNN Panel [facility] 06/14/2022 Ambulatory TNN Panel [facility] 05/30/2022 Ambulatory TNN Panel [facility] 05/25/2022 Ambulatory [facility] 05/16/2022 Inpatient [facility] 09/27/2021 Inpatient E [facility] 09/26/2021 Ambulatory Co [facility] 09/16/2021 Care Team Organization Name Specialty Phone Email Start Date End Da te [employer] Insurance 11/29/2023 [facility] ACO KARISHMAFER MARTINEZ Primary Care jorden [email or web address] 09/17/2023 4 [facility] BUSHRA MARTINEZ Primary Care [email or web address] [email or web address] 09/17/2023 [facility] 08/08/2023 3 [facility] 04/25/2023 5 [facility] ACO 11/18/2022 4 [facility] 08/18/2022 [facility] 05/16/2022 2 [facility] 04/08/2020 0 [facility] BUSHRA MARTINEZ Primary Care jorden [email or web address]
[2025-04-24 11:14] VITALS: PULSE 80
== END 2025-04-24 11:17 | disposition home or self-care (01) ==
LOC: HO.HMCFM 10:06
PROVIDERS: PCP Nurse Practitioner Family; Visit Provider Nurse Practitioner Family
DX: I10 Essential (primary) hypertension (principal); C71.9 Malignant neoplasm of brain, unspecified; Z09 Encounter for follow-up examination after completed treatment for conditions other than malignant neoplasm; K04.7 Periapical abscess without sinus

== ENCOUNTER 2025-06-12 12:25 | Outpatient (AMB) | payer BC, SELFPAY ==
--- NOTE | 2025-06-12 12:28 | A.OFFPC_ITS ---
Vital Signs 06/12/25 12:34 Height 5 ft 4 in Weight 164 lb 4 oz BMI 28.2 BP 136/88 Blood Pressure Location Lt brachial Position Sitting Respiration 12 Pulse 87 Pulse Source Pulse Oximeter Temp 97.8 F Temp Source Temporal Artery Scan Pulse Oximetry (%) 97 Oxygen Delivery Method Room Air Intake Visit Reasons: 3 mo routine fu 30 min Intake Note: Sandy presents in the office for a 3 month follow up. Allergies aloe Allergy (Severe, Verified 06/12/25 13:07) Itching pentazocine (From Talwin) Allergy (Intermediate, Verified 06/12/25 13:07) itchy Medication List - Last Reconciled 06/12/25 by SETH Banegas-BC acetaminophen mg PO amlodipine (Norvasc) 5 mg PO DAILY apixaban (Eliquis) 5 mg PO BID atorvastatin 40 mg PO BEDTIME levetiracetam 1,000 mg PO BID omeprazole 40 mg PO DAILY ondansetron HCl mg PO PRN oxycodone 10 mg PO QID PRN sennosides (senna) 8.6 mg PO DAILY Tobacco use date assessed: 06/12/25 Dental Screening Dental Screen Date: 06/12/25 Did you have a dental visit in the last 12 months?: No Did you have a dental problem in the last 6 months where you did not have access to dental care?: No Was dental information given to patient?: Patient has dentist HPI HPI Comments History of Present Illness Details 69-year-old female orthostatic hypotensi on, hyperlipidemia, obesity, GE RD, seizure disorder, CKD 3, breast cancer (2013), R renal atrophy, chronic small vessel ischemia of brain (CT brain 09/29/24), cardiomegaly (noted on CXR 10/03/24), 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 Here w/ son, Jacinto dtr in [facility] on the phone. - History of hyperlipidemia managed with atorvastatin. - Hypertension managed with amlodipine. - Chronic GERD treated with omeprazole. - Seizure disorder related to brain canc er treated with Keppra. - Chronic headaches managed with oxycodo ne and Tylenol. - Headaches with recent intensity increa se and a full day spent in bed due to severity. - Stopped cancer treatment following a h ospitalization involving intubation. This has since resumed. Next Onco appt 06/18, repeat MRI scheduled, too. - Reports fatigue, lack of stamina, and appetite issues leading to weight loss. - Previous steroid use showed improvemen t in mood and headaches. - Prognosis discussions of less than a y ear relating to brain cancer. - Family and patient seem to be on diffe rent pages regarding this. Family wants her out of bed, eating and drinking. States they think she is pretending she doesnt want to eat. Becomes tearful when talking about this. Family frustrated too saying she feels better when OOB, even when forced. Have told they will call 911 if she doesnt get OOB and eat/drink. Pt aware she is dying. Feels things are in God's hands. Denies si/hi. Does not feel hopeless, rather aware and accepting of her prognosis. Review of Systems - General: Reports fatigue, weakness. De nies anxiety or depression. - Neurological: Reports chronic headache s and history of seizures. Denies recent seizures or falls. - Gastrointestinal: Reports decreased ap petite, feeling full quickly without nausea. - Musculoskeletal: Denies significant pa in except when provoked. - Endocrine: Reports recent weight loss. - Psychological: Denies anxiety or depre ssion related to condition but acknowledges mental fatigue. - Hematologic/Lymphatic: Denies recent b leeding or clotting issues outside of hospitalization context. Physical Exam Awake alert NAD, accompanied by grandson Shawn Cranial nerves II through XII intact; muscle strength 5/5 in ext except 4/5 RLE. Ambulation with walker Lungs clear to auscultation bilaterally. Heart rate and rhythm regular. No edema BLE + PP Alert oriented x3 Tearful at times; appropriate; laughing and joking. Discussion Notes During the visit, I discussed with the patient and her family the management of her chronic conditions, including hypertension, hyperlipidemia, GERD, seizure disorder, and chronic pain related to brain cancer. We focused on optimizing comfort and quality of life, emphasizing appetite stabilization and energy improvement. For headache management, the patient agreed to restart steroids, which were beneficial in the past. Continuing current medications for hypertension, GERD, and seizure control was reinforced. Hydration and nutritional intake were emphasized to prevent further weight loss and ensure adequate energy levels. The importance of family support in daily activities and weight management was highlighted. Plans for future oncology consultations were also discussed to reassess treatment options based on progression and the patient's experiences. Follow-ups were advised for continued monitoring and adjustment of treatment plans as needed. Patient was given time to ask questions. All questions were answered to their satisfaction. Assessment and Plan 1. Essential Hypertension - Continue Amlodipine. - Monitor BP. 2. Hyperlipidemia - Continue Atorvastatin. 3. Gastroesophageal Reflux Disease (GERD ) - Continue Omeprazole. 4. Seizure Disorder - Continue Keppra. - Monitor for seizures. 5. Brain Cancer - Continue discussions with oncology. Klaus discussion w/ family today about trajectory; with brain ca and 2 back to back hospitalizations she has declined. + wt loss. More pain. Decrease ADL function. Advised to call [facility] to get PAYMENT PROCESSOR services in. Also prognosis discussion w/Onco recommended strongly. 6. Chronic Pain - Restart steroids. - Continue Oxycodone and Tylenol. 7. Weight Loss - Family support for meals. - Consider supplements. RTO 3-4 MO ROUTINE FU SOONER NEEDED. Consent Patient was informed and verbally consented to the use of an ambient scribe for clinic note documentation during this visit. Total time spent caring for the patient today was 60 minutes. This includes time spent before the visit reviewing the chart, time spent during the visit, and time spent after the visit on documentation, reviewing laboratory results, diagnostic imaging, medications, performing a medically necessary evaluation, counseling on diagnoses, care coordination, ordering appropriate tests, ordering appropriate medications, review of tests performed by other providers, reporting test results with the patient, communication with other healthcare providers. [facility] Medical History (Updated 06/12/25 @ 15:57 by Divya Archer, RN [facility]-) No pertinent past medical history Surgical History (Updated 01/01/25 @ 07:41 by SETH Banegas-BC) Colon cancer screening declined (~2024) History of back surgery History of bunionectomy History of cholecystectomy History of knee surgery History of mastectomy History of reconstruction of both breasts Family History Other Mental health disorder Substance use disorder Social History (Updated 06/12/25 @ 12:34 by Emperatriz Lind MA) Household Members: Children Housing: House 75 years or older and lives alone: No Alcohol intake: current Alcohol intake frequency: holidays/special occasions only Patient Tobacco Use Status: Never used Tobacco e-Cigarette/Vaping Use: Never Used Second Hand Smoke Exposure: No service: No Current occupational status: disabled Current occupational exposures/hazards: No Sexual orientation: Unable to collect Gender identity: Unable to collect Cognitive needs: No Hearing needs: No Vision needs: Yes (glasses) Questionnaire Thrive Questionnaire Date Thrive assessed: 12/09/24 I am a: Patient What is your living situation today?: I have a steady place to live Within the past 12 months, did the food you bought not last and you didn't have the money to get more?: I choose not to answer this question Within the past 12 months, did you worry whether your food would run out before you got money to buy more?: I choose not to answer this question Do you have trouble paying for medicines?: I choose not to answer this question Do you have trouble getting transportation to medical appointments?: I choose not to answer this question Do you have trouble paying your heating and electricity bill?: I choose not to answer this question Do you have trouble taking care of your child, family member or friend?: I choose not to answer this question Do you have trouble with day-to-day activities such as bathing, preparing meals, shopping, managing finances, etc.?: I choose not to answer this question Are you currently unemployed and looking for a job?: I choose not to answer this question Are you interested in more education?: I choose not to answer this question Please select the resources that you would like help with: None Currently or been in a relationship where the following occur: I choose not to answer THRIVE Score: 0 SCOTT-7 AMB Questionnaire SCOTT-7 Date SCOTT - 7 assessed: 01/01/25 Source: Developed by Drs. Manny Vargas, Erika Cook, Morro Shipley and colleagues, with an educational rose from [employer]. Physical exam (Primary Care) Vital Signs: Last Vital Signs Temp 97.8 F 06/12/25 12:34 Pulse 87 06/12/25 12:34 Resp 12 06/12/25 12:34 BP 136/88 06/12/25 12:34 Pulse Ox 97 06/12/25 12:34 Oxygen Delivery Method Room Air 06/12/25 12:34 BMI result Body Mass Index 28.2 Tobacco/Smoking Status: Tobacco use Status Tobacco use date assessed 06/12/25 06/12/25 12:38 Patient Tobacco Use Status Never used Tobacco 06/12/25 12:34 e-Cigarette/Vaping Use Never Used 06/12/25 12:34 Thrive Assessment: Date of Thrive Assessment Date Thrive assessed 12/09/24 06/12/25 12:28 Currently or been in a relationship where the following occur: I choose not to answer Coding Level of Care Code Est Pt Level 5 (04102) Complex EM visit Add On G2211 Diagnoses Primary hypertension I10 Hypertension type: primary hypertension High cholesterol E78.00 Glioblastoma multiforme of brain C71.9 DNR (do not resuscitate) discussion Z71.89 Chronic GERD K21.9 Migraine aura without headache G43.109 Other chronic pain G89.29 Chronic pain type: other chronic pain Physical deconditioning R53.81 Assessment & Plan Assessment & Plan (1) HTN (hypertension): Comment: Blood pressure at goal less than 130/80 avoid ACEs caused a chronic cough in the past, also avoid beta blockers given low voltage EKG noted at [facility] Code(s): I10 - Essential (primary) hypertension Category: Medical Qualifiers: Hypertension type: primary hypertension Qualified Code(s): I10 - Essential (primary) hypertension (2) High cholesterol: Comment: Maintained on atorvastatin 20 mg daily. Updated lab orders placed today. Code(s): E78.00 - Pure hypercholesterolemia, unspecified Category: Medical (3) Glioblastoma multiforme of brain: Comment: high grade L temporal tumor 09/2024 S/P RADIATION, ON ORAL CHEMO Code(s): C71.9 - Malignant neoplasm of brain, unspecified Category: Medical (4) DNR (do not resuscitate) discussion: Code(s): Z71.89 - Other specified counseling Category: Medical (5) Chronic GERD: Comment: Maintained on omeprazole. Code(s): K21.9 - Gastro-esophageal reflux disease without esophagitis Category: Medical (6) Migraine aura without headache: Code(s): G43.109 - Migraine with aura, not intractable, without status migrainosus Category: Medical (7) Chronic pain: Comment: Affecting bilat hips and legs. Was active with pain management in [place] in the past. Was prescribed oxycodone and OxyContin. She has been off these since 2019. She underwent spinal surgery for L4-L5 several years ago with short-lived relief. Code(s): G89.29 - Other chronic pain Category: Medical Qualifiers: Chronic pain type: other chronic pain Qualified Code(s): G89.29 - Other chronic pain (8) Physical deconditioning: Code(s): R53.81 - Other malaise Category: Medical Plan . Medications: New amlodipine (Norvasc) 5 mg (1/2 x 10 mg) PO DAILY 45 tabs 2RF apixaban (Eliquis) 5 mg PO BID 180 tabs 2RF prednisone 5 tabs x 2 days, 4 tabs x 2 days, 3 tabs x 2 days, 2 tabs x 2 days, 1 tab x 2 days and then STOP. 10 mg PO DIRECTED 30 tabs 0RF 10 days Refilled atorvastatin 40 mg PO BEDTIME 90 tabs 2RF Patient Instructions: [facility] - Help in the Home - Continue taking all prescribed medications as directed. - Use Tylenol and Oxycodone for headaches as needed. - Encourage small, frequent meals to help maintain weight. - Family should support, ensuring daily activities and proper nutrition. - Stay hydrated - Schedule follow-ups with oncologist to review treatment options. Return to see me in 3 months, sooner as needed.
[2025-06-12 12:34] VITALS: BP 136/88; PULSE 87; RESP 12; TEMP 36.6; O2SAT 97; BMI 28.2
--- OUTSIDE RECORDS SUMMARY | 2025-06-12 12:58 | XMS_ITS | Clinical Summary ---
Author Organization [facility] Address [address] [place] [address] Phone Care Team Providers Care Mechanical Engineering Advisor Name Role Phone Pcp, Not Required Primary Care Provider Unavaila Tara Alonzo DO Unavailable Allergies Active Allergy Reactions Criticality Noted Date Comments Aloe Itching,Rash Low 09/16/2021 Eucalyptus 09/29/2024 Talwin Compound 09/29/2024 Medications ELIQUIS DVT-PE TREAT 30D START 5 mg (74 tabs) tablets in DVT/PE starter pack Take by mouth. 12/18/2024 Active atorvastatin (LIPITOR) 20 MG tablet Take 40 mg by mouth. Active amLODIPine (NORVASC) 2.5 MG tablet Take 2.5 mg by mouth. Active levETIRAcetam (KEPPRA) 1000 MG IMMEDIATE release tablet Take 1,000 mg by mouth 2 (two) times a day. Active ondansetron (ZOFRAN) 8 MG tablet 01/09/2025 Active omeprazole (PRILOSEC) 40 MG capsule Take 1 capsule by mouth daily. Active oxyCODONE 5 MG immediate release tablet Take 5 mg by mouth every 6 (six) hours as needed. 01/26/2025 Active Active Problems Problem Noted Date Diagnosed Date Glioblastoma 09/28/2024 Social History Tobacco Use Types Packs/Day Years Used Date Smoking Tobacco: Never Assessed Child or Family Care Answer Date Record ed Do you have problems with on e of the following making it difficult for you to work, study, or receive health care? I choose not to answer 01/23/2025 Education Answer Date Recorded Are you interested in more education? Not on andria e 01/15/2025 Are you concerned about learning? Not on file 01/15/2025 No 01/15/2025 No 01/15/2025 Food Answer Date Recorded Within the past 6 months we worried whether our food would run out before we got money to buy more. Never True 01/23/2025 Within the past 6 months the food we bought just didn't last and we didn't have enough money to get more. Never True Residential Stability Answer Date Recor ded What is your housing situation today? I choose n ot to answer 01/23/2025 How many times have you move d in the past 12 months? Zero (I did not move) 01/23/2025 Paying for Meds Answer Date Recorded Do you have trouble paying for medicines? No 01/23/2025 Paying Utility Bills Answer Date Record ed Do you have trouble paying your heating or elect ricity bill? No 01/23/2025 Transportation Answer Date Recorded Has the lack of transportati on kept you from medical appointments or from getting medications? No 01/23/2025 Digital Access Answer Date Recorded No 01/15/2025 No 01/15/2025 Reliable internet access at home? Not on file 01/15/2025 Device with a working camera? Not on file Comments Unknown Sex and Gender Information Value Date Recorded Sex Assigned at Female 01/15/2025 1:11 PM EDT Legal Sex Female 12:30 PM EDT Gender Identity Female 01/15/2025 1:11 PM EDT Sexual Orientation Straight 01/15/2025 1: 11 PM EDT Last Filed Vital Signs Vital Sign Reading Time Taken Comments Blood Pressure 142/84 01/28/2025 2:54 PM EDT Pulse 66 01/28/2025 2:54 PM EDT Temperature 36.5 C (97.7 F) 01/28/2025 2:55 PM EDT Respiratory Rate 16 01/28/2025 2:54 PM EDT Oxygen Saturation 98% 01/28/2025 2:54 PM EDT Inhaled Oxygen Concentration - - Weight 77.9 kg (171 lb 11.8 oz) 01/28/2025 2:54 PM EDT Height 161.8 cm (5' 3.7 ) 01/28/2025 2:54 PM EDT Body Mass Index 29.76 01/28/2025 2:54 PM EDT Plan of Treatment Health Maintenance Due Date Last Done Comments CREATININE LEVEL 1955 LIPID PANEL 1955 DEPRESSION SCREENING 1967 SMOKING Hx and SMOKELESS TOB ACCO SCREENING 1968 HEPATITIS C SCREENING 1973 PNEUMOCOCCAL VACCINES (50+ y ears) (1 of 2 - PCV) 1974 ZOSTER VACCINES (1 of 2) 1974 SCREENING FOR DIABETES 1990 MAMMOGRAM 1995 COLOGUARD 2000 COLONOSCOPY 2000 COLORECTAL CANCER SCREENING 2000 FIT TEST 2000 FOBT 2000 SIGMOIDOSCOPY 2000 VIRTUAL COLONOSCOPY 2000 OSTEOPOROSIS SCREENING INITI AL (ONE-TIME) 2020 COVID-19 VACCINE ( - 2023-2 5 season) 2024 INFLUENZA VACCINE (#1) 2025 10/22/2024 RSV VACCINE (1 - 1-dose 75+ series) 2030 Adult Td,Tdap Booster 12/13/2032 12/13/2022 HEPATITIS A VACCINES Aged Out No long er eligible based on patient's age to complete this topic HIB VACCINES Aged Out No longer eligi ble based on patient's age to complete this topic MENINGOCOCCAL VACCINES (ACWY) Aged Out No longer eligible based on patient's age to complete this topic MENINGOCOCCAL VACCINES (B) Aged Out N o longer eligible based on patient's age to complete this topic Medical Devices Not on file Insurance [facility] OUT OF STATE PPO BLUE [employer]OSS OUT OF STATE PPO [employer]UE [employer] OUT OF STATE PPO [employer]UE [place] OUT OF STATE PPO [place] OUT OF STATE PPO BLUE [place] OUT OF STATE PPO Care Teams Mechanical Engineering Advisor Relationship Specialty Start Date End Date Pcp, Not Required [address] [place] [address] PCP - General 01/27/25 Tara Bansal DO [address] [place] [id number] Internal Medicine 01/28/25 Additional Source Comments The information contained in this document represents components of the legal health record. It is not the complete legal health record.[facility]
--- OUTSIDE RECORDS SUMMARY | 2025-06-12 12:58 | XMS_ITS ---
[facility] Care Plan Created on: June 08, 2025 Sandy Rosas : 1955 Sex: Female Author Organization [employer] [employer] Address [address] [place] [id number] Phone Health Concerns Health Status CKD Unspecified Health Concerns None
--- OUTSIDE RECORDS SUMMARY | 2025-06-12 12:58 | XMS_ITS | Clinical Summary ---
Author Organization [facility] Address [address] [place] [address] Phone Care Team Providers Care Epic Cad[facility] Specialists Name Role Phone Divya Archer Primary Care Provider [phone] Allergies Active Allergy Reactions Criticality Noted Date Comments Aloe 09/29/2024 Eucalyptus 09/29/2024 Talwin Compound Itching 09/29/2024 Medications atorvastatin (LIPITOR) 40 mg tablet Take 1 tablet (40 mg total) by mouth 1 (one) time each day. Active omeprazole (PriLOSEC) [address] capsule Take 1 capsule (40 mg total) by mouth at bedtime. Do not crush or chew. Active prochlorperazi ne (COMPAZINE) 10 mg tabletIndicati ons:Glioblasto ma multiforme of brain (CMS/HCC V24, CMS/HCC V28) Take 1 tablet (10 mg total) by mouth every 6 (six) hours if needed for nausea or vomiting. 60 tablet 3 03/06/20 25 Active amLODIPine (NORVASC) 5 mg tablet Take 2 tablets (10 mg total) by mouth 1 (one) time each day. 60 each 1 03/26/20 25 Active naloxone (NARCAN) 0.4 mg/mL injection Infuse 0.1 mL (0.04 mg total) into a venous catheter if needed for opioid reversal (IV Push every 1 min for 10 doses) for up to 10 doses. 1 mL 04/02/20 25 Active levETIRAcetam (KEPPRA) 1,000 mg tablet Take 1 tablet (1,000 mg total) by mouth 2 (two) times a day. 60 each 04/02/20 25 Active Eliquis 5 mg tablet TAKE 1 TABLET(5 MG) BY MOUTH TWICE DAILY 60 tablet 1 04/29/20 25 Active oxyCODONE (ROXICODONE) 10 mg immediate release tablet Take 1 tablet (10 mg total) by mouth every 6 (six) hours if needed for severe pain. Max Daily Amount: 40 mg 60 tablet 06/04/20 25 Active senna (SENOKOT) 8.6 mg tablet Take 2 tablets (17.2 mg total) by mouth at bedtime. 025 Discontinued clindamycin (CLEOCIN) 300 mg capsule Take 1 capsule (300 mg total) by mouth 2 (two) times a day. 04/24/20 25 025 Discontinued mirtazapine (REMERON) 7.5 mg tablet Take 1 tablet (7.5 mg total) by mouth at bedtime. 30 each 04/30/20 25 025 Discontinued oxyCODONE (ROXICODONE) 5 mg immediate release tablet Take 1 tablet (5 mg total) by mouth every 4 (four) hours if needed for moderate pain or severe pain. Max Daily Amount: 30 mg 60 tablet 05/01/20 25 025 Discontinued(Re order) oxyCODONE (ROXICODONE) 5 mg immediate release tablet Take 1 tablet (5 mg total) by mouth every 4 (four) hours if needed for moderate pain or severe pain. Partial fill allowed Max Daily Amount: 30 mg 60 tablet 05/14/20 25 025 Discontinued Active Problems Problem Noted Date Diagnosed Date Acute periodontal abscess 04/02/2025 Gas gangrene of neck ([facility] V24, [facility] V28) 04/02/2025 Glioblastoma multiforme of brain ([facility] V24, [facility] V28) 10/13/2024 Status post craniotomy 10/02/2024 Resolved Problems Problem Noted Date Diagnosed Date Resolved Date Glioblastoma multiforme of t emporal lobe ([facility] V24, [facility] V28) 02/28/2025 04/02/2025 Acute saddle pulmonary embol ism, unspecified whether acute cor pulmonale present ([facility] V24, [facility] V28) 12/17/2024 04/02/2025 Acute postoperative pain 10/02/2024 Brain neoplasm ([facility] V24, [facility] V28) 09/30/2024 10/14/2024 Assessment & Plan (10/13/2024 4:40 PM EST): Patient is 11 days s/p left temporal brain biopsy, path: GBM, specimen sent out to [facility] as well for second opinion, pending. Patient [...] Encounters Date Type Department Care Team Description 06/04/2025 2:45 PM EDT - 06/04/2025 11:59 PM EDT Hospital Encounter [facility] Infusion Center [address] [place] [phone] Tara Bansal, DO Glioblastoma multiforme of brain ([facility] V24, [facility] V28) (Primary Dx) Discharge Disposition: Home or Self Care 06/04/2025 2:15 PM EDT Office Visit [facility] Hematology Oncology [address] [place] [phone] Tara Bansal, DO Glioblastoma multiforme of brain ([facility] V24, [facility] V28) (Primary Dx); Acute saddle pulmonary embolism, unspecified whether acute cor pulmonale present ([facility] V24, [facility] V28) 05/27/2025 9:29 AM EDT - 05/27/2025 11:59 PM EDT Hospital Encounter [facility]fusion [facility] [address] [place] [phone] Tara Bansal, DO Glioblastoma multiforme of brain ([facility] V24, [facility] V28) (Primary Dx) Discharge Disposition: Home or Self Care 05/27/2025 Social Work [facility] [address] [place] [phone] Kamilah Pascal LMSW 05/21/2025 11:43 AM EDT - 05/21/2025 11:59 PM EDT Hospital Encounter [facility] Radiation Oncology [address] [place] [phone] Francia Raza, RD Glioblastoma multiforme of brain ([facility] V24, [facility] V28) (Primary Dx) Discharge Disposition: Home or Self Care 05/21/2025 8:52 AM EDT - 05/21/2025 11:59 PM EDT Hospital Encounter [address] [phone] Glioblastoma multiforme of brain ([facility] V24, [facility] V28) (Primary Dx) Discharge Disposition: Home or Self Care 05/13/2025 3:41 PM EDT - 05/13/2025 11:59 PM EDT Hospital Encounter [facility] Xray [address] [place] [phone] Glioblastoma multiforme of brain ([facility] V24, [facility] V28) Discharge Disposition: Home or Self Care 05/13/2025 1:52 PM EDT - 05/13/2025 11:59 PM EDT Hospital Encounter [facility] [address] [place] [phone] Tara Bansal, DO Glioblastoma multiforme of brain ([facility] V24, [facility] V28) (Primary Dx) Discharge Disposition: Home or Self Care 05/05/2025 8:30 AM EDT - 05/05/2025 11:59 PM EDT Hospital Encounter [facility] Infusion [facility] [address] [place] [phone] Tara Bansal, Glioblastoma multiforme of brain ([facility] V24, [facility] V28) (Primary Dx) Discharge Disposition: Home or Self Care 05/01/2025 11:30 AM EDT - 05/01/2025 11:59 PM EDT Hospital Encounter [facility] Infusion Center [address] [place] [phone] Tara Bansal, Glioblastoma multiforme of brain ([facility] V24, [facility] V28) (Primary Dx) Discharge Disposition: Home or Self Care 04/30/2025 2:30 PM EDT Office Visit [facility] Hematology Oncology [address] [place] [phone] Tara Bansal, Glioblastoma multiforme of brain ([facility] V24, [facility] V28) (Primary Dx) 04/24/2025 8:26 AM EDT - 04/24/2025 11:59 PM EDT Hospital Encounter [address] [phone] Glioblastoma multiforme of brain ([facility] V24, [facility] V28) Discharge Disposition: Home or Self Care 04/08/2025 Telephone [facility] Hematology Oncology [address] [place] [phone] Amelia Lim NM 04/01/2025 9:57 PM EDT - 04/02/2025 11:08 AM EDT Hospital Encounter [facility] Intermediate Care Unit [address] [place] [phone] Raymond Warner MD Acute periodontal abscess (Primary Dx); Gas gangrene of neck ([facility] V24, [facility] V28) Discharge Disposition: Short Term Hospital 03/26/2025 9:00 AM EDT - 03/26/2025 11:59 PM EDT Hospital Encounter [facility] Infusion Center [address] [phone] Tara Bansal DO Glioblastoma multiforme of brain ([facility] V24, [facility] V28) (Primary Dx) Discharge Disposition: Home or Self Care 03/25/2025 11:30 AM EDT Office Visit [facility] Hematology Oncology [address] [place] [phone] Tara Bansal DO Glioblastoma multiforme of brain ([facility] V24, [facility] V28) (Primary Dx) 03/23/2025 Telephone [facility] Hematology Oncology [address] [place] [phone] Tara Bansal DO from Last 3 Months Surgical History Surgery Date Site/Laterality Comments TOTAL KNEE ARTHROPLASTY PROCEDURE: ID ARTHRP KNE CONDYLE&PLATU MEDIAL&LAT COMPARTMENTS MASTECTOMY PROCEDURE: HISTORICAL MASTECTOMY; COMMENT: bilateral BACK SURGERY PROCEDURE: HISTORICAL BACK SURGERY; COMMENT: l4 l5 plus fusion BUNIONECTOMY PROCEDURE: BUNION SURGERY, SIMPLE REMOVAL CHOLECYSTECTOMY PROCEDURE: ID LAPAROSCOPY SURG CHOLECYSTECTOMY BACK SURGERY ? L4-5 surgery in [place] MASTECTOMY BREAST RECONSTRUCTION Bilateral cancer, no XRT or chemtx TOTAL KNEE ARTHROPLASTY Left CHOLECYSTECTOMY [place]UCKIE BUNIONECTOMY Bilateral BRAIN BIOPSY 10/02/2024 Left temporal mass, path: GBM, Dr. Mas Medical History Medical History Date Comments Cancer of breast ([facility] V2 4, [facility] V28) DX:Cancer of breast ([facility]); C OMMENT: bilateral Back pain DX:Back pain Breast cancer ([facility] V24, [facility] V28) Renal disorder Hypertension Seizure ([facility] V24, [facility] V28) 2020 Patient had 2 seizures in 1 day, on Keppra Glioblastoma multiforme of b rain ([facility] V24, [facility] V28) Family History Medical History Relation Name [...] Female 10/20/2024 4:41 PM EST Sexual Orientation Straight 05/01/2025 11 :35 AM EDT Obstetrics History Last Filed Vital Signs Vital Sign Reading Time Taken Comments Blood Pressure 145/97 06/04/2025 3:53 PM EDT Pulse 96 06/04/2025 3:53 PM EDT Temperature 36.4 C (97.6 F) 06/04/2025 3:53 PM EDT Respiratory Rate 16 06/04/2025 3:53 PM EDT Oxygen Saturation 98% 06/04/2025 3:53 PM EDT Inhaled Oxygen Concentration - - Weight 74.8 kg (165 lb) 06/04/2025 3:53 PM EDT Height 160 cm (5' 2.99 ) 06/04/2025 3:53 PM EDT Body Mass Index 29.24 06/04/2025 3:53 PM EDT Plan of Treatment Upcoming Encounters Date Type Department Care Team (Late st Contact Info) Description 06/18/2025 9:00 AM EDT Appointment [facility] Infusion Center [address] [phone] 07/03/2025 9:00 AM EDT Office Visit [facility] Hematology Oncology [address] [place] [phone] Tara Bansal DO [address] [place] [address] Health Maintenance Due Date Last Done Comments [...] 2025 , 07/24/2019, 08/01/2018, Additional history exists Falls Risk Assessment 06/04/2026 06/04/2025 Hypertension/CHF/CAD Annual BMP Blood Test 06/04/2026 06/04/2025, 05/21/2025, 05/01/2025, Additional history exists DTaP,Tdap,and Td Vaccines (2 - Td or Tdap) 12/13/2032 12/13/2022 Breast Cancer Screening Discontinued 12/03/2013 Depression Screening Completed 03/06/2025 HIB Vaccines Aged Out No longer eligi [...] this topic Medical Devices Implanted Type Area Prune Washer Device Identifier Shelf Expiration Date Model / Serial / Lot Powder Surgifoam Absorb Gel - Sn/A - [id number] Implanted:Qty: 1 on 10/02/2024 by Marian Mas MD at [facility] [employer] Left: Brain [employer] 04/18/20261977 / N/A / [id number] Procedures Procedure Name Priority Date/Time Associated Diagnosis Comments THYROID STIMULATING HORMONE Add-On 06/04/2025 2:02 PM EDT VITAMIN D 25 HYDROXY Add-On 06/04/2025 2:02 PM EDT VITAMIN B12 Add-On 06/04/2025 2:02 PM EDT CBC WITH AUTO DIFFERENTIAL STAT 06/04/2025 2:02 PM EDT Glioblastoma multiforme of brain (CMS/HCC V24, CMS/HCC V28) COMPREHENSIVE METABOLIC PANEL STAT 06/04/2025 2:02 PM EDT Glioblastoma multiforme of brain (CMS/HCC V24, CMS/HCC V28) CBC AND DIFFERENTIAL STAT 06/04/2025 2:02 PM EDT Glioblastoma multiforme of brain (CMS/HCC V24, CMS/HCC V28) PROTEIN, URINE, RANDOM STAT 2:02 PM EDT Glioblastoma multiforme of brain (CMS/HCC V24, CMS/HCC V28) CBC WITH AUTO DIFFERENTIAL STAT 05/21/2025 9:43 AM EDT Glioblastoma multiforme of brain (CMS/HCC V24, CMS/HCC V28) COMPREHENSIVE METABOLIC PANEL STAT 05/21/2025 9:43 AM EDT Glioblastoma multiforme of brain (CMS/HCC V24, CMS/HCC V28) PROTEIN, URINE, RANDOM STAT 9:43 AM EDT Glioblastoma multiforme of brain (CMS/HCC V24, CMS/HCC V28) CBC AND DIFFERENTIAL STAT 05/21/2025 9:43 AM EDT Glioblastoma multiforme of brain (CMS/HCC V24, CMS/HCC V28) XR HIP 2-3 VIEWS LEFT Routine 05/13/2025 4:00 PM EDT Glioblastoma multiforme of brain (CMS/HCC V24, CMS/HCC V28) PROTEIN, URINE, RANDOM Routine 1:14 PM EDT Glioblastoma multiforme of brain (CMS/HCC V24, CMS/HCC V28) CBC WITH AUTO DIFFERENTIAL STAT 05/01/2025 12:21 PM EDT Glioblastoma multiforme of brain (CMS/HCC V24, CMS/HCC V28) COMPREHENSIVE METABOLIC PANEL STAT 05/01/2025 12:21 PM EDT Glioblastoma multiforme of brain (CMS/HCC V24, CMS/HCC V28) CBC AND DIFFERENTIAL STAT 05/01/2025 12:21 PM EDT Glioblastoma multiforme of brain (CMS/HCC V24, CMS/HCC V28) MR BRAIN WO AND W CONTRAST Routine 04/24/2025 9:18 AM EDT Glioblastoma multiforme of brain (CMS/HCC V24, CMS/HCC V28) ECG ANNOTATED 04/03/2025 CBC WITH AUTO DIFFERENTIAL [...] 11:22 AM EDT Glioblastoma multiforme of brain ([facility] V24, [facility] V28) CBC AND DIFFERENTIAL Routine 03/25/2025 11:22 AM EDT Glioblastoma multiforme of brain ([facility] V24, [facility] V28) from Last 3 Months Results * (ABNORMAL) CBC auto differential (06/04/2025 2:02 PM EDT) Only the most recent of6 resultswithin the time period is included. WBC 5.2 4.8 - 10.8 K/mcL LAB HEMETOLOGY [facility] RBC 3.90 3.80 - 4.80 M/mcL LAB HEMETOLOGY METHOD 06/04/2025 2:27 PM EDT [facility] Hemoglobin 12.4 11.5 - 16.0 g/dL LAB HEMETOLOGY METHOD 06/04/2025 2:27 PM EDT [facility] Hematocrit 38.8 35.0 - 47.0 % LAB HEMETOLOGY METHOD 06/04/2025 2:27 PM [facility] MCV 99.2(H) 79.0 - 98.0 FL LAB HEMETOLOGY METHOD 06/04/2025 2:27 PM EDT [facility] MCH 31.7 27.0 - 32.0 pcg LAB HEMETOLOGY METHOD 06/04/2025 2:27 PM [facility] MCHC 32.0 32.0 - 37.0 g/dL LAB HEMETOLOGY METHOD 06/04/2025 2:27 PM [facility] RDW 12.5 11.0 - 15.0 % LAB HEMETOLOGY METHOD 06/04/2025 2:27 PM [facility] Platelets 288 130 - 400 K/mcL LAB HEMETOLOGY METHOD 06/04/2025 2:27 PM [facility] MPV 8.7 7.0 - 11.0 FL LAB HEMETOLOGY METHOD 06/04/2025 2:27 PM [facility] NRBC 0.0 <1.0 % LAB HEMETOLOGY METHOD 06/04/2025 2:27 PM [facility] NRBC Absolute 0.00 <0.10 K/mcL LAB HEMETOLOGY METHOD 06/04/2025 2:27 PM [facility] Neutrophils Relative 47.3 % LAB HEMETOLOGY METHOD 06/04/2025 2:27 PM [facility] Lymphocytes Relative 40.5 % LAB HEMETOLOGY METHOD 06/04/2025 2:27 PM [facility] Monocytes Relative 8.1 % LAB HEMETOLOGY METHOD 06/04/2025 2:27 PM [facility] Eosinophils Relative 2.7 % LAB HEMETOLOGY METHOD 06/04/2025 2:27 PM [facility] Basophils Relative 1.2 % LAB HEMETOLOGY METHOD 06/04/2025 2:27 PM [facility] Immature Granulocytes Relative 0.2 % LAB HEMETOLOGY METHOD 06/04/2025 2:27 PM [facility] Neutrophils Absolute 2.47 1.50 - 7.00 K/mcL LAB HEMETOLOGY METHOD 06/04/2025 2:27 PM [facility] Lymphocytes Absolute 2.11 1.00 - 5.00 K/mcL LAB HEMETOLOGY METHOD 06/04/2025 2:27 PM [facility] Monocytes Absolute 0.42 0.20 - 1.00 K/mcL LAB HEMETOLOGY METHOD 06/04/2025 2:27 PM EDT [facility] Eosinophils Absolute 0.14 0.00 - 0.50 K/mcL LAB HEMETOLOGY METHOD 06/04/2025 2:27 PM EDT [facility] Basophils Absolute 0.06 0.00 - 0.20 K/mcL LAB HEMETOLOGY METHOD 06/04/2025 2:27 PM EDT [facility] Immature Granulocytes Absolute 0.01 0.00 - 0.03 K/mcL LAB HEMETOLOGY METHOD 06/04/2025 2:27 PM EDT [facility] Blood Venous blood specimen / Unknown Venipuncture / Unknown 06/04/2025 2:02 PM EDT 06/04/2025 2:23 PM EDT Tara Bansal DO LAB BLOOD ORDERABLES Final Result Performing Organization Address City/[facility]/ZIP Co de Phone Number [facility] [address] [place] [address], [place] [phone] * Protein, urine, random (06/04/2025 2:02 PM EDT) Only the most recent of4 resultswithin the time period is included. [facility] Protein, Urine 28 mg/dL LAB CHEMISTRY METHOD 06/04/2025 2:46 PM EDT [facility] Urine Urine specimen obtained by clean catch procedure / Unknown Non-blood Collection / Unknown 06/04/2025 2:02 PM EDT 06/04/2025 2:23 PM EDT Tara Bansal DO LAB URINE ORDERABLES Final Result [facility] [address] [place] [address], [place] [phone] * Vitamin D 25 hydroxy (06/04/2025 2:02 PM EDT) Vit D, 25-Hydroxy 45.8 30.0 - 80.0 ng/mL LAB CHEMISTRY METHOD 06/04/2025 4:27 PM EDT [facility] Blood Venous blood specimen / Unknown Venipuncture / Unknown 06/04/2025 2:02 PM EDT 06/04/2025 2:23 PM EDT Tara Bansal DO LAB BLOOD ORDERABLES Final Result Performing Organization Address City/[facility]/ZIP Co de Phone Number [facility] [address] [place] [address], [place] [phone] * TSH (06/04/2025 2:02 PM EDT) Pathologist [facility] TSH 0.44 0.40 - 4.00 mcIU/mL LAB CHEMISTRY METHOD 06/04/2025 4:27 PM EDT [facility] Blood Venous blood specimen / Unknown Venipuncture / Unknown 06/04/2025 2:02 PM EDT 06/04/2025 2:23 PM EDT Tara Bansal DO LAB BLOOD ORDERABLES Final Result Performing Organization Address [facility] de Phone Number [facility] [address] [place] [address], [place] [phone] * Vitamin B12 (06/04/2025 2:02 PM EDT) Pathologist [facility] Vitamin B-12 787 250 - 900 pcg/mL LAB CHEMISTRY METHOD 06/04/2025 5:33 PM EDT [facility] Blood Venous blood specimen / Unknown Venipuncture / Unknown 06/04/2025 2:02 PM EDT 06/04/2025 2:23 PM EDT Tara Bansal DO LAB BLOOD ORDERABLES Final Result Performing Organization Address City/[facility]/ZIP Co de Phone Number [facility] [address] [place] [address], [place] [phone] * (ABNORMAL) Comprehensive metabolic panel (06/04/2025 2:02 PM EDT) Only the most recent of5 resultswithin the time period is included. Sodium 142 133 - 145 mmol/L LAB CHEMISTRY METHOD 06/04/2025 3:18 PM EDT [facility] Potassium 3.3(L) 3.5 - 5.5 mmol/L LAB CHEMISTRY METHOD 06/04/2025 3:18 PM [facility] Chloride 109 96 - 110 mmol/L LAB CHEMISTRY METHOD 06/04/2025 3:18 PM [facility] CO2 27 21 - 32 mmol/L LAB CHEMISTRY METHOD 06/04/2025 3:18 PM [facility] Anion Gap 6 3 - 11 LAB CHEMISTRY METHOD 06/04/2025 3:18 PM [facility] Glucose 96 70 - 100 mg/dL LAB CHEMISTRY METHOD 06/04/2025 3:18 PM [facility] BUN 10 5 - 25 mg/dL LAB CHEMISTRY METHOD 06/04/2025 3:18 PM [facility] Creatinine 1.01 0.50 - 1.10 mg/dL LAB CHEMISTRY METHOD 06/04/2025 3:18 PM [facility] eGFR 60 >=60 mL/min/1. 73m2 LAB CHEMISTRY METHOD 06/04/2025 3:18 PM [facility] Comment:Calculation based on the Chronic Kidney Disease Epidemiology Collaboration (CKD-EPI) equation refit without adjustment for race. BUN/Creatinine Ratio 9.9 LAB CHEMISTRY METHOD 06/04/2025 3:18 PM [facility] Calcium 8.7 8.5 - 10.5 mg/dL LAB CHEMISTRY METHOD 06/04/2025 3:18 PM [facility] AST (SGOT) 23 10 - 42 unit/L LAB CHEMISTRY METHOD 06/04/2025 3:18 PM EDT [facility] ALT (SGPT) 16 10 - 60 unit/L LAB CHEMISTRY METHOD 06/04/2025 3:18 PM EDT [facility] Alkaline Phosphatase 90 42 - 121 unit/L LAB CHEMISTRY METHOD 06/04/2025 3:18 PM EDT [facility] Total Protein 6.1 6.0 - 8.0 g/dL LAB CHEMISTRY METHOD 06/04/2025 3:18 PM EDT [facility] Albumin 2.8(L) 3.2 - 5.0 g/dL LAB CHEMISTRY METHOD 06/04/2025 3:18 PM EDT [facility] Total Bilirubin 0.4 0.0 - 1.4 mg/dL LAB CHEMISTRY METHOD 06/04/2025 3:18 PM EDT [facility] Blood Venous blood specimen / Unknown Venipuncture / Unknown 06/04/2025 2:02 PM EDT 06/04/2025 2:23 PM EDT us Tara Bansal DO LAB BLOOD ORDERABLES Final Result [facility] [address] [place] [address], * XR Hip 2-3 Views Left (05/13/2025 4:00 PM EDT) Anatomical Region Laterality Modality Lower Extremities, Hip Left Radiograp hic Imaging 05/14/2025 7:53 AM EDT Impressions 05/14/2025 7:56 AM EDT No acute findings and no change since 09/29/2024. Degenerative osteophytes are again seen at the greater trochanter of the left femur. Again seen is mild osteoarthritis of the sacroiliac joints bilaterally. The patient is again seen to have undergone previous posterior fusion at the L5-S1 level. Code 16347 -------- FINAL REPORT -------- Dictated By: Shawn Schafer Dictated Date: 05/14/2025 07:53 ET Assigned Physician: Shawn Schafer Reviewed and Electronically Signed By: Shawn Schafer Signed Date: 05/14/2025 07:56 ET Workstation ID: [id number] Transcribed By: Self Edit Transcribed Date: 05/14/2025 07:55 ET Narrative 05/14/2025 7:56 AM EDT HISTORY: The patient is a 69-year-old female with glioblastoma of the brain, and left hip pain. No history of trauma is provided. FINDINGS: AP radiograph of the pelvis, along with coned-down AP and external rotation-abduction views of the left hip, are obtained. The patient is again seen to have undergone posterior fusion at the L5-S1 level as also seen on the prior study performed 09/29/2024. There is no fracture, dislocation, or osteolytic or osteoblastic lesion. Osteophytes are present in the greater trochanter of the left femur. Again seen is mild irregularity of the sacroiliac joints bilaterally consistent with osteoarthritis. No soft tissue abnormality is seen. Procedure Note Shawn Schafer MD - 05/14/2025 HISTORY: The patient is a 69-year-old female with glioblastoma of thebrain, and left hip pain. No history of trauma is provided. FINDINGS: AP radiograph of the pelvis, along with coned-down AP andexternal rotation-abduction views of the left hip, are obtained. Thepatient is again seen to have undergone posterior fusion at the L5-S0uergp as also seen on the prior study performed 09/29/2024. There is nofracture, dislocation, or osteolytic or osteoblastic lesion. Osteophytesare present in the greater trochanter of the left femur. Again seen ismild irregularity of the sacroiliac joints bilaterally consistent withosteoarthritis. No soft tissue abnormality is seen. IMPRESSION: No acute findings and no change since 09/29/2024. Degenerative osteophytesare again seen at the greater trochanter of the left femur. Again seen ismild osteoarthritis of the sacroiliac joints bilaterally. The patient isagain seen to have undergone previous posterior fusion at the [id number]. Code 48947 -------- FINAL REPORT -------- Dictated By: Shawn Schafer Dictated Date: 05/14/2025 07:53 ET Assigned Physician: Shawn Schafer Reviewed and Electronically Signed By: Shawn Schafer Signed Date: 05/14/2025 07:56 ET Workstation ID: [id number] Transcribed By: Self Edit Transcribed Date: 05/14/2025 07:55 ET us Tara Melvinuliffe DO IMG XR PROCEDURES Fin al Result * MR Brain wo and w Contrast (04/24/2025 9:18 AM EDT) Anatomical Region Laterality Modality Head and Neck Magnetic Resonan ce 04/24/2025 9:04 AM EDT Impressions 04/24/2025 11:22 AM EDT 1. Interval decrease in size of 2 irregular rim-enhancing lesions in the left temporal lobe. The enhancement is less intense and thinner than on the previous study. Adjacent T2 signal abnormality is improved. The findings are suggestive of a treatment response. 2. 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 -------- FINAL REPORT -------- Dictated By: Zoltan Galo Dictated Date: 04/24/2025 09:04 ET Assigned Physician: Zoltan Galo Reviewed and Electronically Signed By: Zoltan Galo Signed Date: 04/24/2025 11:22 ET Workstation ID: [id number] Transcribed By: Self Edit Transcribed Date: 04/24/2025 09:47 ET Narrative 04/24/2025 11:22 AM EDT PROCEDURE: Contrast-enhanced MRI of the brain. HISTORY: Anaplastic gliomas/glioblastoma, monitor (Age 19-70y). TECHNIQUE: Multiplanar multisequence MRI of the brain with and without intravenous contrast. IV CONTRAST DOSE: 15 mL Dotarem from a 15 mL vial with 0 mL discarded. COMPARISON: 02/26/2025. FINDINGS: BRAIN: There are 2 enhancing lesions in the left temporal lobe: 2.6 x 1.6 x 1.0 cm lesion in the mesial temporal lobe, previously measuring 2.8 x 1.7 x 1.3 cm. 1.7 x 1.1 x 1.2 cm lesion in the lateral temporal pole, previously measuring 1.9 x 1.5 x 1.4 cm. Irregular enhancement associated with both lesions is thinner and less intense than on the previous exam. Decreased adjacent T2 signal abnormality. There is faint ill-defined gyriform contrast enhancement along the superolateral left temporal lobe (series 12, image 16, series 1100, image 188). This is new compared with the previous study. Faint gyriform T1 hyperintensity is also noted in this area on precontrast images (series 7, image 16). No diffusion abnormality. No extra-axial fluid collection. No hydrocephalus. The major intracranial flow voids are preserved. Age commensurate ventricles and sulci. No abnormal enhancement. Scattered areas of T2 prolongation in the supratentorial white matter are unchanged. ORBITS: Normal. SINUSES/MASTOIDS: Normal. CALVARIUM: Moderate hyperostosis frontalis interna. Small tamara hole in the lateral left squamous temporal bone. OTHER: The visualized skull base soft tissues are normal. Partially visible degenerative changes of the cervical spine. Procedure Note Zoltan Galo MD - 04/24/2025 PROCEDURE: Contrast-enhanced MRI of the brain. HISTORY: Anaplastic gliomas/glioblastoma, monitor (Age 19-70y). TECHNIQUE: Multiplanar multisequence MRI of the brain with and withoutintravenous contrast. IV CONTRAST DOSE: 15 mL Dotarem from a 15 mL vial with 0 mL discarded. COMPARISON: 02/26/2025. FINDINGS: BRAIN: There are 2 enhancing lesions in the left temporal lobe: 2.6 x 1.6 x 1.0 cm lesion in the mesial temporal lobe, previouslymeasuring 2.8 x 1.7 x 1.3 cm. 1.7 x 1.1 x 1.2 cm lesion in the lateral temporal pole, previouslymeasuring 1.9 x 1.5 x 1.4 cm. Irregular enhancement associated with both lesions is thinner and lessintense than on the previous exam. Decreased adjacent T2 signalabnormality. There is faint ill-defined gyriform contrast enhancement along thesuperolateral left temporal lobe (series 12, image 16, series 1100, [id number]). This is new compared with the previous study. Faint gyriform [id number] is also noted in this area on precontrast images (series 7,image 16). No diffusion abnormality. No extra-axial fluid collection. Nohydrocephalus. The major intracranial flow voids are preserved. Agecommensurate ventricles and sulci. No abnormal enhancement. Scatteredareas of T2 prolongation in the supratentorial white matter areunchanged. ORBITS: Normal. SINUSES/MASTOIDS: Normal. CALVARIUM: Moderate hyperostosis frontalis interna. Small tamara hole inthe lateral left squamous temporal bone. OTHER: The visualized skull base soft tissues are normal. Partiallyvisible degenerative changes of the cervical spine. IMPRESSION: 1. Interval decrease in size of 2 irregular rim-enhancing lesions in theleft temporal lobe. The enhancement is less intense and thinner than onthe previous study. Adjacent T2 signal abnormality is improved. Thefindings are suggestive of a treatment response. 2. 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 -------- FINAL REPORT -------- Dictated By: Zoltan Galo Dictated Date: 04/24/2025 09:04 ET Assigned Physician: Zoltan Galo Reviewed and Electronically Signed By: Zoltan Galo Signed Date: 04/24/2025 11:22 ET Workstation ID: [id number] Transcribed By: Self Edit Transcribed Date: 04/24/2025 09:47 ET us Tara Bansal DO IMG MRI PROCEDURES Fi nal Result * ECG-Annotated (04/03/2025) us Provider Onbase ECG ORDERABLES Final Result * Phosphorus (04/02/2025 5:56 AM EDT) Phosphorus 3.1 2.5 - 4.5 mg/dL LAB CHEMISTRY METHOD 04/02/2025 6:34 AM EDT [facility] ([facility]) [facility] Blood Venous blood specimen / Unknown Venipuncture / Unknown 04/02/2025 5:56 AM EDT 04/02/2025 6:03 AM EDT us Raymond Warner MD LAB BLOOD ORDERABLES Ciarra l Result Performing Organization Address [facility]/ZIP Co de Phone Number [facility] [address] [place] [address], [place] [phone] * (ABNORMAL) Magnesium (04/02/2025 5:56 AM EDT) Pathologist [facility] Magnesium 1.8(L) 1.9 - 2.6 mg/dL LAB CHEMISTRY METHOD 04/02/2025 6:34 AM EDT [facility] Blood Venous blood specimen / Unknown Venipuncture / Unknown 04/02/2025 5:56 AM EDT 04/02/2025 6:03 AM EDT Raymond Warner MD LAB BLOOD ORDERABLES Ciarra l Result Performing Organization Address [facility]/ZIP Co de Phone Number [facility] [address] [place] [address], [place] [phone] * (ABNORMAL) Basic metabolic panel (04/02/2025 5:56 AM EDT) [facility] Sodium 136 133 - 145 mmol/L LAB CHEMISTRY METHOD 04/02/2025 6:34 AM EDT [facility] Potassium 3.2(L) 3.5 - 5.5 mmol/L LAB CHEMISTRY METHOD 04/02/2025 6:34 AM EDT [facility] Chloride 101 96 - 110 mmol/L LAB CHEMISTRY METHOD 04/02/2025 6:34 AM EDT [facility] CO2 25 21 - 32 mmol/L LAB CHEMISTRY METHOD 04/02/2025 6:34 AM EDT [facility] Anion Gap 10 3 - 11 LAB CHEMISTRY METHOD 04/02/2025 6:34 AM EDT [facility] Glucose 186(H) 70 - 100 mg/dL LAB CHEMISTRY METHOD 04/02/2025 6:34 AM EDT [facility] BUN 32(H) 5 - 25 mg/dL LAB CHEMISTRY METHOD 04/02/2025 6:34 AM [facility] Creatinine 1.07 0.50 - 1.10 mg/dL LAB CHEMISTRY METHOD 04/02[facility]2025 6:[facility] eGFR 56(L) >=60 mL/min/1. 73m2 LAB CHEMISTRY METHOD 04/02/2025 6:34 AM [facility] Comment:Calculation based on the Chronic Kidney [...] MD LAB BLOOD ORDERABLES Ciarra l Result [facility] [address] [place] [address], * Lactate (04/02/2025 5:03 AM EDT) Lactate 1.4 0.4 - 2.0 mmol/L LAB CHEMISTRY METHOD 04/02/2025 5:43 AM EDT [facility] Blood Venous blood specimen / Unknown Venipuncture / Unknown 04/02/2025 5:03 AM EDT 04/02/2025 5:04 AM EDT us Moni MARK LAB BLOOD ORDERABLES Fi nal Result [facility] [address] [place] [address], * XR Chest 1 View (04/02/2025 4:18 [...] Signed Date: 04/02/2025 09:36 ET Workstation ID: [id number] Transcribed By: Self Edit Transcribed Date: 04/02/2025 [...] Signed Date: 04/02/2025 09:36 ET Workstation ID: [id number] Transcribed By: Self Edit Transcribed Date: 04/02/2025 09:24 ET Moni MARK IMG XR PROCEDURES Final Result * (ABNORMAL) Prothrombin time with INR (04/02/2025 2:35 AM EDT) Only the most recent of2 resultswithin the time period is included. [facility] Protime 18.2(H) 10.6 - 13.9 sec LAB COAGULATION METHOD 04/02/2025 3:05 AM EDT [facility] INR 1.5 LAB COAGULATION METHOD 04/02/2025 3:05 AM EDT [facility] Blood Venous blood specimen / Unknown Venipuncture / Unknown 04/02/2025 2:35 AM EDT 04/02/2025 2:53 AM EDT Raymond Warner MD LAB BLOOD ORDERABLES Ciarra l Result Performing Organization Address [facility]/ZIP Co de Phone Number [facility] [address] [place] [address], * (ABNORMAL) Blood culture pathogens molecular study (04/02/2025 2:21 AM EDT) Only the most recent of2 resultswithin the time period is included. [facility] Streptococcus species Detected (A) Not Detected LAB MICROBIOLOGY METHOD 04/03/2025 6:56 AM EDT [facility] Blood Venous blood specimen / Unknown Venipuncture / Unknown 04/02/2025 2:21 AM EDT 04/02/2025 2:28 AM EDT Marcel MARK LAB MICROBIOLOGY - GENERAL ORDER SAHIL Final Result Performing Organization Address City/[facility]/ZIP Co de Phone Number [facility] [address] [place] [address], * (ABNORMAL) Blood Culture, Peripheral #1 (04/02/2025 2:21 AM EDT) Only the most recent of2 resultswithin the time period is included. Culture, Blood Streptococcus constellatus(AA) 04/07/2025 1:51 PM EDT [facility] Comment: Susceptibility testing not routinely performed. [...] chains and clusters(AA) 04/07/2025 1:51 PM EDT [facility] Comment: This is an appended report. [...] MICROBIOLOGY - GENERAL ORDER SAHIL Final Result [facility] [address] [place] [address], * (ABNORMAL) Lactate, with reflex (04/02/2025 12:58 AM EDT) Only the most recent of2 resultswithin the time period is included. LACTIC ACID 2.5(H) 0.4 - 2.0 mmol/L LAB CHEMISTRY METHOD 04/02/2025 1:34 AM EDT [facility] Blood Venous blood specimen / Unknown Venipuncture / Unknown 04/02/2025 12:58 AM EDT 04/02/2025 1:10 AM EDT us Marcel MARK LAB BLOOD ORDERABLES Final Resul t [facility]) [facility] [address] [place] [address], * CT Angio Head/Neck wo and/or w [...] Fox MD on 04/02/2025 01:22:[address] PROCEDURES Edited Result - Final * (ABNORMAL) Manual differential (04/01/2025 10:37 PM EDT) Neutrophils % 42.0 % LAB HEMETOLOGY METHOD 5 12:32 AM [facility] Bands % 24.0 % LAB HEMETOLOGY METHOD 5 12:32 AM [facility] Lymphocytes % 11.0 % LAB HEMETOLOGY METHOD 5 12:32 AM [facility] Reactive Lymphocyte 1.00 % [...] 12:32 AM [facility] Eosinophils Absolute Manual 0.07 0.00 - 0.50 K/mcL LAB HEMETOLOGY METHOD 5 12:32 AM [facility] Basophils Absolute Manual 0.00 0.00 - 0.20 K/mcL LAB HEMETOLOGY METHOD 5 12:32 AM [facility] Metamyelocytes Absolute Manual 0.88(H) 0.00 - 0.00 K/mcL LAB HEMETOLOGY METHOD 5 12:32 AM EDT [facility] Myelocytes Absolute Manual 0.29(H) 0.00 - 0.00 K/mcL LAB HEMETOLOGY METHOD 5 12:32 AM EDT [facility] Promyelocytes Absolute Manual 0.07(H) 0.00 - 0.00 K/[facility] 12:32 AM EDT [facility] Other Cells ABS 0.07(H) 0.00 - 0.00 K/[facility] METHOD 5 12:32 AM EDT [facility] Rbc Morphology Consistent with indices Consistent with indices, Normal for LAB [facility] 5 12:32 AM EDT [facility] Platelet Morphology - WAM Normal Normal LAB [facility] METHOD 5 12:32 AM EDT [facility] Blood Venous blood specimen / Unknown Venipuncture / Unknown 04/01/2025 10:37 PM EDT 04/01/2025 10:48 PM EDT us Marcel MARK LAB BLOOD ORDERABLES Final Resul t [facility] [address] [place] [address], * APTT (04/01/2025 10:37 PM EDT) aPTT 30.0 24.1 - 39.3 sec LAB COAGULATION METHOD 04/01/2025 11:01 PM EDT [facility] Blood Venous blood specimen / Unknown Venipuncture / Unknown 04/01/2025 10:37 PM EDT 04/01/2025 10:48 PM EDT us Marcel MARK LAB BLOOD ORDERABLES Final Resul t [place] ([facility] [address] [place] [address], [place] [phone] * ECG 12 lead (04/01/2025 10:25 PM EDT) Ventricular Rate ECG 105 BPM GEMUSE Atrial Rate 105 BPM GEMUSE P-R Interval 130 ms GEMUSE QRS Duration 82 ms GEMUSE Q-T Interval 326 ms GEMUSE QTc 430 ms GEMUSE P Wave [place] 1 degrees GEMUSE R [place] -42 degrees GEMUSE T [place] 34 degrees GEMUSE ECG Interpretation Sinus tachycardia Left axis deviation Minimal voltage criteria for LVH, may be normal variant ( Carlos A product ) Anterolateral infarct (cited on or before 28-FEB-2025) Abnormal ECG When compared with ECG of 28-FEB-2025 14:46, No significant change was found Confirmed by ESTER RAMOS ([id number]) on 04/02/2025 5:50:39 PM GEMUSE 04/01/2025 10:2 5 PM EDT 04/02/2025 5:50 PM EDT Arthur Lal MD ECG ORDERABLES Final Resul t GEMUSE from Last 3 [place] [phone] [employer] - [place] MEDICARE ADVANTAGE MEDICARE ADVANTAGE GENERIC DE[place] [id number] Advance Directives Documents on File Type Date Recorded 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
--- OUTSIDE RECORDS SUMMARY | 2025-06-12 12:58 | XMS_ITS ---
Author Organization [facility] Address [address] [place] [address] Phone Care Team Providers Care Clinical Counselor Name Role Phone Divya Archer Primary Care Provider Active Problems Problem Noted Date Diagnosed Date Acute periodontal abscess 04/02/2025 Gas gangrene of neck ([facility] V24, [facility] V28) 04/02/2025 Glioblastoma multiforme of brain ([facility] V24, [facility] V28) 10/13/2024 Status post craniotomy 10/02/2024 Current Oncology Plans Bevacizumab ( 14-day cycle, 10 mg/kg )* Plan Start Date:03/05/2025 Plan Provider:Tara Bansal DO Linked Problems Glioblastoma multiforme of b rain ([facility] V24, [facility] V28) Treatment Medications Current Day (Day 1 , Cycle 6 - Planned for 06/16/2025) Next Day (Day 1, Cycle 7 - Planned for 06/30/2025) bevacizumab-bvzr (ZIRABEV) chemo IVPBbevacizumab-bvzr biosimilar (ZIRABEV) bevacizumab-bvzr (ZIRABEV) 700 mg in sodium chloride 128 mL chemo IVPB bevacizumab-bvzr (ZIRABEV) chemo IVPB HYDRATION AND ELECTROLYTES* Plan Start Date:05/21/2025 Plan Provider:Tara Bansal DO Linked Problems Glioblastoma multiforme of b rain ([facility] V24, [facility] V28) Treatment Medications No medications scheduled. Past Plans No past plan information found. Radiation Treatments * Treatment Site Started On Last Treated On Elapsed Days Fractions Complete Last Fraction Dose Given/Prescribed Total Dose Given/Prescribed Technique Left Temp lobe 5 5 41 30 of 30 200 cGy / 200 cGy 6,000 cGy / 6, 000 cGy 2 arc VMAT Resolved Problems Problem Noted Date Diagnosed Date Resolved Date Glioblastoma multiforme of t emporal lobe ([facility] V24, [facility] V28) 02/28/2025 04/02/2025 Acute saddle pulmonary embol ism, unspecified whether acute cor pulmonale present ([facility] V24, [facility] V28) 12/17/2024 04/02/2025 Acute postoperative pain 10/02/2024 Brain neoplasm ([facility] V24, [facility] V28) 09/30/2024 10/14/2024 Assessment & Plan (10/13/2024 4:40 PM EST): Patient is 11 days s/p left temporal brain biopsy, path: GBM, specimen sent out to [facility] as well for second opinion, pending. [...]
== END 2025-06-12 13:43 | disposition home or self-care (01) ==
LOC: HO.HMCFM 12:25
PROVIDERS: PCP Nurse Practitioner Family; Visit Provider Nurse Practitioner Family
DX: I10 Essential (primary) hypertension (principal); C71.9 Malignant neoplasm of brain, unspecified; E78.00 Pure hypercholesterolemia, unspecified; Z71.89 Other specified counseling; K21.9 Gastro-esophageal reflux disease without esophagitis; G43.109 Migraine with aura, not intractable, without status migrainosus; G89.29 Other chronic pain; R53.81 Other malaise